=== PATIENT | female | born 1975 | race Caucasian/White ===

== ENCOUNTER 2023-04-13 16:40 | Outpatient (OUT) | payer OTHER, SELFPAY ==
[2023-04-13 16:56] LABS: Basophils Absolute Auto 0.1 10^3/uL (0.0-0.1); Basophils Percent Auto 0.4 % (0.2-2.0); Eosinophils Absolute Auto 0.4 10^3/uL (0.0-0.7); Eosinophils Percent Auto 3.7 % (0.9-7.0); Hematocrit 30.9 % (36.0-48.0); Hemoglobin 10.1 g/dL (12.0-16.0); Immature Granulocytes Abs Auto 0.07 10^3/uL (0.00-0.03); Immature Granulocytes Pct Auto 0.6 % (0.0-0.5); Lymphocytes Absolute Auto 2.7 10^3/uL (1.2-3.8); Lymphocytes Percent Auto 22.9 % (20.5-60.0); Mean Corpuscular HGB Conc 32.7 g/dL (29.9-35.2); Mean Corpuscular Hemoglobin 28.9 pg (26.7-34.0); Mean Corpuscular Volume 88.5 fL (81.0-99.0); Mean Platelet Volume 9.7 fL (9.5-13.5); Monocytes Absolute Auto 0.6 10^3/uL (0.3-0.8); Monocytes Percent Auto 4.9 % (1.7-12.0); Neutrophils Absolute Auto 8.1 10^3/uL (1.4-6.5); Neutrophils Percent Auto 67.5 % (43.0-75.0); Platelet Count 319 10^3/uL (150-450); Red Blood Count 3.49 10^6/uL (4.20-5.40); Red Cell Distribution Width 14.2 % (11.0-15.0)
[2023-04-13 17:09] LABS: Partial Thromboplastin Time 29.1 sec (22.3-36.2); Prothrombin Time 10.6 sec (9.0-11.6)
== END 2023-04-13 16:41 | disposition home or self-care (01) ==
LOC: LAB 16:43
PROVIDERS: PCP Family Medicine; Visit Provider Family Medicine
DX: N92.0 Excessive and frequent menstruation with regular cycle (principal)
CPT/HCPCS: 36415; 85025; 85610; 85730

== ENCOUNTER 2023-04-27 09:39 | Emergency (ER) | payer OTHER, SELFPAY ==
[2023-04-27 09:46] VITALS: BP 150/96; PULSE 77; RESP 22; TEMP 36.5; O2SAT 98; BMI 56.7
--- NOTE | 2023-04-27 10:08 | ED_ITS ---
HPI - Female Genitourinary General Chief complaint: Vaginal Bleeding Time Seen by Provider: 04/27/23 10:07 Source: patient and family Mode of arrival: walk-in History of Present Illness HPI Narrative: patient here for evaluation of heavy vaginal bleeding. Recently her primary care doctor placed her on a five day course of hormonal therapy for menstrual bleeding. She said her bleeding slowed down and stopped her low back but this morning it started getting very heavy. She's used approximately seven pads in the last three hours. 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 There is no strong family history of malignancy. She does not have any other bleeding disorders. She is not on iron or vitamin supplementation foor any anemia and she's never received any blood transfusions. She feels a little shaky this morning. She was having some abdominal cramping but she took it and said it feels a little bit better. She's not having any shortness of breath or chest pain. 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 Vital signs are noted. She's not tachycardic or hypotensive. Her skin is warm and dry. There is no diaphoresis or clamminess. Mucous members are moist and pink. There is no pallor when examining her conjunctival area. Palmar creases are normal. She has no labored drawstring after her tachycardia. Her extremities show no swelling. Constitutional Vital Signs, click to edit/add: Last Vital Signs Temp 97.7 F 04/27/23 09:46 Pulse 77 04/27/23 09:46 Resp 22 04/27/23 09:46 BP 129/75 04/27/23 10:34 Pulse Ox 98 04/27/23 09:46 O2 Del Method Room Air 04/27/23 09:46 Course Vital Signs Vital signs: Vital Signs Temperature 97.7 F 04/27/23 09:46 Pulse Rate 77 04/27/23 09:46 Respiratory Rate 22 04/27/23 09:46 Blood Pressure 150/96 H 04/27/23 09:46 Pulse Oximetry 98 04/27/23 09:46 Oxygen Delivery Method Room Air 04/27/23 09:46 Temperature 97.7 F 04/27/23 09:46 Pulse Rate 77 04/27/23 09:46 Respiratory Rate 22 04/27/23 09:46 Blood Pressure 129/75 04/27/23 10:34 Pulse Oximetry 98 04/27/23 09:46 Oxygen Delivery Method Room Air 04/27/23 09:46 MDM - Female Genitourinary MDM Narrative Medical decision making narrative: patient's CBC is stable from previous laboratory testing at this facility. A pelvic ultrasound was done and the results were discussed with her and discussed with Dr. Hoover, the OB condenser winder. He suggested she rather suggested follow-up with Dr. Edu chris. She will probably need hysteroscopy for evaluation of the uterine lining. This was all discussed in detail with the patient. He is hemodynamically stable Lab Data Labs: Lab Results 04/27/23 Range/Units 10:16 WBC 8.6 (4.0-11.0) 10^3/uL RBC 3.67 L (4.20-5.40) 10^6/uL Hgb 10.1 L (12.0-16.0) g/dL Hct 32.3 L (36.0-48.0) % MCV 88.0 (81.0-99.0) fL MCH 27.5 (26.7-34.0) pg MCHC 31.3 (29.9-35.2) g/dL RDW 14.1 (11.0-15.0) % Plt Count 384 (150-450) 10^3/uL MPV 9.5 (9.5-13.5) fL Neut % (Auto) 70.3 (43.0-75.0) % Lymph % (Auto) 20.7 (20.5-60.0) % [place] % (Auto) 5.1 (1.7-12.0) % Eos % (Auto) 3.2 (0.9-7.0) % Baso % (Auto) 0.2 (0.2-2.0) % Neut # (Auto) 6.1 (1.4-6.5) 10^3/uL Lymph # (Auto) 1.8 (1.2-3.8) 10^3/uL [place] # (Auto) 0.4 (0.3-0.8) 10^3/uL Eos # (Auto) 0.3 (0.0-0.7) 10^3/uL Baso # (Auto) 0.0 (0.0-0.1) 10^3/uL Abs Immat Gran (auto) 0.04 H (0.00-0.03) 10^3/uL Imm/Tot Granulo (auto) 0.5 (0.0-0.5) % PT 10.3 (9.0-11.6) sec INR 0.97 Sodium 137 (136-145) mmol/L Potassium 3.7 (3.5-5.1) mmol/L Chloride 102 (98-107) mmol/L Carbon Dioxide 26.9 (21.0-32.0) mmol/L Anion Gap 11.8 BUN 10.0 (7.0-18.0) mg/dL Creatinine 0.80 (0.55-1.02) mg/dL Est GFR ( Amer) >60 (>=60) Est GFR (Non-Af Amer) >60 (>=60) BUN/Creatinine Ratio 12.5 Glucose 107 H (74-106) mg/dL Calcium 8.5 (8.5-10.1) mg/dL Discharge Plan Discharge Chief Complaint: Vaginal Bleeding Clinical Impression: Menometrorrhagia, Vaginal bleeding Time of Disposition Decision: 11:44 Prescriptions / Home Meds: No Action levothyroxine 50 mcg tablet 50 mcg PO DAILY liothyronine 5 mcg tablet 10 mcg PO DAILY Instructions: Abnormal (Dysfunctional) Uterine Bleeding (ED) Additional Instructions: call Dr. Sorensen's office for follow-up. Strict rest for the next twenty-four hours Stand Alone Forms: Portal Instructions Referrals: Dave Cochran MD [Primary Care Provider] - 1 week
--- NOTE | 2023-04-27 10:13 | US_ITS ---
[address] [address] Patient Name: SARA GIVENS MRN: [id number] date: 1975 Sex: F Assigned Patient Location: ER Current Patient Location: ER Accession/Order Number: [id number] Exam Date: 04/27/2023 10:15 Report Date: 04/27/2023 11:13 At the request of: KIEL GUTIERREZ Procedure: US pelvis transvaginal PROCEDURE: US pelvis transvaginal, 04/27/2023 10:15 AM EDT CLINICAL INDICATIONS: Vaginal bleeding for 2 weeks, prior section 2 para 1 AB 1 COMPARISON: 06/07/2017 TECHNIQUE: Transvaginal pelvic sonogram, grayscale color and spectral assessment FINDINGS: Uterus: 4.8 x 3.0 x 3.4 cm. Uterus is retroverted. Nabothian paracervical cysts are present largest complex 0.7 cm. 2.1 x 2.2 x 2.2 cm complex abnormality identified in the central portion of the fundic portion of the endometrium. There is peripheral vascularity. Endometrium is poorly demonstrated. Right ovary: 1.4 x 1.5 x 1.4 cm, volume 2 mL. Subcentimeter follicle seen, normal sonographic morphology. Left ovary: 3.2 x 4.5 x 3.9 cm, volume 29 mL. 2.7 x 3.3 x 2.7 cm anechoic left ovarian cyst identified. Benign cyst favored. DUPLEX PELVIC VASCULATURE: There is intact flow within the ovarian tissue bilaterally by color-flow assessment. Arterial spectral tracing is identified from within. Right resistive index 0.46, left 0.57. US/US pelvis transvaginal IMPRESSION: 1. Retroverted uterus with nabothian paracervical cyst 2. Complex heterogeneous mass in the fundic portion of the uterus obscuring the endometrium with internal vascularity. Etiology of this process remains indeterminate. Submucosal/intramural leiomyomatous changes are favored although indeterminate on this study alone. This is not evident previously, incompletely characterized on this exam. 3. Normal right ovarian sonographic morphology 4. Anechoic 3.3 cm left ovarian cyst. Benign functional cyst is favored 5. No sonographic sign of adnexal torsion Electronically authenticated by: FELA SMITH Date: 04/27/2023 11:13
[2023-04-27 10:24] LABS: Basophils Percent Auto 0.2 % (0.2-2.0); Eosinophils Absolute Auto 0.3 10^3/uL (0.0-0.7); Eosinophils Percent Auto 3.2 % (0.9-7.0); Hematocrit 32.3 % (36.0-48.0); Hemoglobin 10.1 g/dL (12.0-16.0); Immature Granulocytes Abs Auto 0.04 10^3/uL (0.00-0.03); Immature Granulocytes Pct Auto 0.5 % (0.0-0.5); Lymphocytes Absolute Auto 1.8 10^3/uL (1.2-3.8); Lymphocytes Percent Auto 20.7 % (20.5-60.0); Mean Corpuscular HGB Conc 31.3 g/dL (29.9-35.2); Mean Corpuscular Hemoglobin 27.5 pg (26.7-34.0); Mean Platelet Volume 9.5 fL (9.5-13.5); Monocytes Absolute Auto 0.4 10^3/uL (0.3-0.8); Monocytes Percent Auto 5.1 % (1.7-12.0); Neutrophils Absolute Auto 6.1 10^3/uL (1.4-6.5); Neutrophils Percent Auto 70.3 % (43.0-75.0); Platelet Count 384 10^3/uL (150-450); Red Blood Count 3.67 10^6/uL (4.20-5.40); Red Cell Distribution Width 14.1 % (11.0-15.0); White Blood Count 8.6 10^3/uL (4.0-11.0)
[2023-04-27 10:34] VITALS: BP 129/75
[2023-04-27 10:35] LABS: Anion Gap 11.8; BUN Creatinine Ratio 12.5; Calcium 8.5 mg/dL (8.5-10.1); Carbon Dioxide 26.9 mmol/L (21.0-32.0); Chloride 102 mmol/L (98-107); Estimated GFR (African America >60 (>=60); Estimated GFR (Non-African Ame >60 (>=60); Glucose 107 mg/dL (74-106); Potassium 3.7 mmol/L (3.5-5.1); Sodium 137 mmol/L (136-145)
[2023-04-27 10:37] LABS: INR 0.97; Prothrombin Time 10.3 sec (9.0-11.6)
[2023-04-27] MEDS: 0.9 % SODIUM CHLORIDE 1,000 ML 999 ML IV (10:53)
== END 2023-04-27 12:10 | disposition home or self-care (01) ==
PROVIDERS: Emergency Provider Emergency Medicine Emergency Medical Services; PCP Family Medicine
DX: N92.1 Excessive and frequent menstruation with irregular cycle (principal); N93.9 Abnormal uterine and vaginal bleeding, unspecified; Z79.890 Hormone replacement therapy
CPT/HCPCS: 36415; 76830; 80048; 85025; 85610; 99284

== ENCOUNTER 2023-06-22 13:32 | Outpatient (OUT) | payer OTHER, SELFPAY ==
--- NOTE | 2023-06-22 13:46 | ECG_ITS ---
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
== END 2023-06-22 13:33 | disposition home or self-care (01) ==
LOC: PST 13:33
PROVIDERS: PCP Family Medicine; Visit Provider Obstetrics & Gynecology
DX: Z01.810 Encounter for preprocedural cardiovascular examination (principal); N93.9 Abnormal uterine and vaginal bleeding, unspecified
CPT/HCPCS: 93005

== ENCOUNTER 2023-07-06 07:55 | Day surgery (SDC) | payer OTHER, SELFPAY ==
[2023-06-22 13:53] VITALS: BP 121/76; PULSE 92; RESP 20; TEMP 36.3; O2SAT 97; BMI 54.9
[2023-07-06] VITALS (17 sets, daily range): BP systolic 104–155; BP diastolic 66–91; PULSE 57–86; RESP 11–20; TEMP 35.9–36.6; O2SAT 95–100; BMI 54.9
[2023-07-06 08:05] LABS: Hematocrit 29.6 % (36.0-48.0); Hemoglobin 8.5 g/dL (12.0-16.0); Mean Corpuscular HGB Conc 28.7 g/dL (29.9-35.2); Mean Corpuscular Hemoglobin 21.7 pg (26.7-34.0); Mean Corpuscular Volume 75.5 fL (81.0-99.0); Mean Platelet Volume 9.5 fL (9.5-13.5); Platelet Count 375 10^3/uL (150-450); Red Blood Count 3.92 10^6/uL (4.20-5.40); White Blood Count 8.2 10^3/uL (4.0-11.0)
[2023-07-06 08:08] LABS: Red Cell Distribution Width 14.1 % (11.0-15.0)
[2023-07-06 08:21] LABS: Anisocytosis 1+; Eosinophils Absolute Manual 0.57 10^3/uL (0.00-0.70); Hypochromasia 2+; Lymphocytes Absolute Manual 1.31 10^3/uL (1.20-3.80); Microcytosis 2+; Monocytes Absolute Manual 0.32 10^3/uL (0.30-0.80); Segmented Neut Absolute Manual 5.98 10^3/uL (1.4-6.5)
[2023-07-06] MEDS: FAMOTIDINE/PF 20 MG/2 ML VIAL IV (08:28)
[2023-07-06] MEDS: LACTATED RINGER'S SOLUTION 1,000 ML 50 ML IV (08:28)
[2023-07-06] MEDS: SCOPOLAMINE 1 MG/3 DAYS TRANSDERM PATCH 1 PATCH TD (08:28)
[2023-07-06 08:38] LABS: HCG Quantitative <1 mIU/mL
--- NOTE | 2023-07-06 09:50 | PM.ONB ---
Brief Operative Note Date of procedure: 07/06/23 Pre-op diagnosis: thickend endometrial lining, anemia Post-op diagnosis: same as pre-op Procedure: NAME OF PROCEDURE: [ D&c hysteroscopy with myosure with polypectomy] PROCEDURE: The patient was taken back to the Operating Room where she was prepped and draped in normal sterile fashion after being placed under general anesthesia without difficulty. She was also placed in the dorsal lithotomy position. A weighted speculum was placed in the patient?s vagina. The anterior lip of the cervix was identified and grasped with a single tooth tenaculum. The patient?s uterus was then sounded roughly to [? 10] cm. The patient was then gently dilated using Hegar dilators. The hysteroscope was passed through the patient?s cervix into the uterus. Both ostia were identified. fluffy appearing endometrium. No gross evidence of malignancy, no gross evidence of polyps or fibroids. The MyoSure was then placed through the scope into the uterus, endometrial sampling in all quadrants was then performed. endometrial polyp was also removed using the myosure The myosure apparatus was removed along with the hysteroscope from the patient's uterus. At that point, gentle curettage was performed until a gritty texture was noted. The endometrial curettings were sent out to pathology. The single tooth tenaculum was then removed from the patient's anterior lip of the cervix where excellent hemostasis was noted. All instruments were removed from the patient?s vagina. The patient tolerated the procedure well. Sponge, lap and needle counts were correct times two. The patient was taken to the Recovery Room in stable condition.Room in stable condition. Anesthesia: GETA Surgeon: Tristin Sorensen Estimated blood loss (mL): 5 Pathology: other (endometrial curretting, endometrial polyp) Condition: stable Disposition: PACU
[2023-07-06] MEDS: LACTATED RINGER'S SOLUTION 1,000 ML 150 ML IV (10:15)
[2023-07-06] MEDS: ACETAMINOPHEN 325 MG TABLET 650 MG PO (10:48)
--- NOTE | 2023-07-06 11:11 | PC.NURSE ---
pATIENT USED RESTROOM BUT DID NOT PEEE HAD BLOODY TOILET TISSUE. DENIES PAIN
== END 2023-07-06 12:05 | disposition home or self-care (01) ==
PROVIDERS: PCP Family Medicine; Visit Provider Obstetrics & Gynecology
PROC: (CPT 58558; principal; 2023-07-06 09:15)
DX: N93.9 Abnormal uterine and vaginal bleeding, unspecified (principal); E03.9 Hypothyroidism, unspecified; M19.90 Unspecified osteoarthritis, unspecified site; Z87.891 Personal history of nicotine dependence; R93.89 Abnormal findings on diagnostic imaging of other specified body structures; D64.9 Anemia, unspecified; E66.01 Morbid (severe) obesity due to excess calories; Z68.43 Body mass index [BMI] 50.0-59.9, adult
CPT/HCPCS: 58558; 36415; 84702; 85027; 88305; J2704

== ENCOUNTER 2023-07-14 09:41 | Outpatient (OUT) | payer OTHER, SELFPAY ==
[2023-07-14 10:02] LABS: Basophils Absolute Auto 0.1 10^3/uL (0.0-0.1); Basophils Percent Auto 0.6 % (0.2-2.0); Eosinophils Absolute Auto 0.5 10^3/uL (0.0-0.7); Eosinophils Percent Auto 4.6 % (0.9-7.0); Hematocrit 29.1 % (36.0-48.0); Hemoglobin 8.3 g/dL (12.0-16.0); Immature Granulocytes Abs Auto 0.04 10^3/uL (0.00-0.03); Immature Granulocytes Pct Auto 0.4 % (0.0-0.5); Lymphocytes Absolute Auto 2.1 10^3/uL (1.2-3.8); Lymphocytes Percent Auto 21.4 % (20.5-60.0); Mean Corpuscular HGB Conc 28.5 g/dL (29.9-35.2); Mean Corpuscular Hemoglobin 21.7 pg (26.7-34.0); Mean Corpuscular Volume 76.2 fL (81.0-99.0); Mean Platelet Volume 9.9 fL (9.5-13.5); Monocytes Absolute Auto 0.7 10^3/uL (0.3-0.8); Monocytes Percent Auto 7.3 % (1.7-12.0); Neutrophils Absolute Auto 6.5 10^3/uL (1.4-6.5); Neutrophils Percent Auto 65.7 % (43.0-75.0); Platelet Count 404 10^3/uL (150-450); Red Blood Count 3.82 10^6/uL (4.20-5.40); Red Cell Distribution Width 16.1 % (11.0-15.0)
== END 2023-07-14 09:42 | disposition home or self-care (01) ==
LOC: LAB 09:44
PROVIDERS: PCP Family Medicine; Visit Provider Obstetrics & Gynecology
DX: R79.89 Other specified abnormal findings of blood chemistry (principal)
CPT/HCPCS: 36415; 85025

== ENCOUNTER 2023-08-21 21:32 | Emergency (ER) | payer OTHER, SELFPAY ==
[2023-08-21 21:43] VITALS: BP 121/61; PULSE 90; RESP 18; TEMP 36.7; O2SAT 99; BMI 56.7
--- NOTE | 2023-08-21 22:11 | ED_ITS ---
HPI - Fall General Chief Complaint: Fall Stated Complaint: Fall Time Seen by Provider: 08/21/23 21:48 Source: patient Mode of arrival: Wheelchair Limitations: no limitations History of Present Illness HPI Narrative: patient describes walking out of a restaurant and falling. States the ground was not level due to a crack in the cement. She loss her balance and fell striking her left shoulder against a pillar and then landing on her right knee. complains of feeling sore all over but most of her pain is the right knee. No weakness of the extremities. MD complaint: Reports fall Related Data Home Medications Medication Instructions Recorded Confirmed levothyroxine 50 mcg tablet 50 mcg PO DAILY 04/27/23 08/21/23 liothyronine 5 mcg tablet 10 mcg PO DAILY 04/27/23 08/21/23 carisoprodol 350 mg tablet (Soma) 350 mg PO BID PRN muscle pain 06/22/23 06/22/23 meclizine 25 mg tablet 25 mg PO TID PRN dizziness 06/22/23 06/22/23 Allergies Allergy/AdvReac Type Severity Reaction Status Date / Time No Known Drug Allergies Allergy Verified 08/21/23 21:45 Review of Systems ROS Status of ROS 10 or more systems reviewed and unremark able except as noted in history and below [facility] Medical History (Updated 08/22/23 @ 00:13 by Emerson Schrader MD) Vertigo ?R42 - Dizziness and giddiness (ICD-10) Back pain ?M54.9 - Dorsalgia, unspecified (ICD-10) Anemia ?D64.9 - Anemia, unspecified (ICD-10) Panic attacks ?F41.0 - Panic disorder [episodic paroxysmal anxiety] (ICD-10) Anxiety ?F41.9 - Anxiety disorder, unspecified (ICD-10) COVID-19 ?U07.1 - COVID-19 (ICD-10) Hypothyroid ?E03.9 - Hypothyroidism, unspecified (ICD-10) Cellulitis ?L03.90 - Cellulitis, unspecified (ICD-10) Arthritis ?M19.90 - Unspecified osteoarthritis, unspecified site (ICD-10) Abnormal uterine bleeding (AUB) ?N93.9 - Abnormal uterine and vaginal bleeding, unspecified (ICD-10) Surgical History (Updated 06/22/23 @ 13:52 by Yesi Knox NP) History of section ?Z98.891 - History of uterine scar from previous surgery (ICD-10) History of section ?Z98.891 - History of uterine scar from previous surgery (ICD-10) History of dilation and curettage ?Z98.890 - Other specified postprocedural states (ICD-10) Family History (Updated 06/22/23 @ 13:42 by Yesi Knox NP) Other Family history of diabetes mellitus Family history of hypertension Family history of stroke Heart disease Social History (Updated 06/22/23 @ 13:48 by Yesi Knox NP) Within the past year, how often did you have a drink containing alcohol: monthly or less Smoking status: Former smoker Non-prescribed substance use: denies use 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 Highest level of school completed/degree received: high school graduate Exam Constitutional Vital Signs, click to edit/add: Last Vital Signs Temp 98.1 F 08/21/23 21:43 Pulse 90 08/21/23 21:43 Resp 18 08/21/23 21:43 BP 121/61 08/21/23 21:43 Pulse Ox 99 08/21/23 21:43 O2 Del Method Room Air 08/21/23 21:43 Common normals: no apparent distress, oriented x3, alert and well nourished Eye Common normals: EOMs intact bilaterally and conjunctivae normal Respiratory Common normals: normal respiratory effort, no retractions and no use of accessory muscles Cardio Common normals: regular rate, regular rhythm, S1 normal heart sound and S2 normal heart sound Back & Pelvis Other: very mild tenderness lower lumbar musculature hips nontender. focal tenderness right patella. no swelling Neuro Common normals: oriented x3, CN's II-XII intact bilaterally, moves all extremities and no focal motor deficits Psych Appearance: grossly normal Course Vital Signs Vital signs: Vital Signs Temperature 98.1 F 08/21/23 21:43 Pulse Rate 90 08/21/23 21:43 Respiratory Rate 18 08/21/23 21:43 Blood Pressure 121/61 08/21/23 21:43 Pulse Oximetry 99 08/21/23 21:43 Oxygen Delivery Method Room Air 08/21/23 21:43 Temperature 98.1 F 08/21/23 21:43 Pulse Rate 90 08/21/23 21:43 Respiratory Rate 18 08/21/23 21:43 Blood Pressure 121/61 08/21/23 21:43 Pulse Oximetry 99 08/21/23 21:43 Oxygen Delivery Method Room Air 08/21/23 21:43 MDM - Fall MDM Narrative Medical decision making narrative: patient loss balance walking out of a Restaurant . Describes a crack in the ground and uneven pavement. Fell striking her left shoulder and then onto her right knee. Achy all over but her main are of pain if her right knee. Difficult to walk because of the pain. has focal tenderness over the patella. No effusion. focal area discoloration at impact site. Xray of knee neg. Patient and informed of the xray results and working diagnosis. Given an injection of Toradol and discharged home to follow up with her doctor Discharge Plan Discharge Chief Complaint: Fall Clinical Impression: Contusion of knee, right Patient Disposition: Home, Self-Care Prescriptions / Home Meds: No Action carisoprodol [Soma] 350 mg tablet 350 mg PO BID PRN (Reason: muscle pain) meclizine 25 mg tablet 25 mg PO TID PRN (Reason: dizziness) levothyroxine 50 mcg tablet 50 mcg PO DAILY liothyronine 5 mcg tablet 10 mcg PO DAILY Instructions: Contusion in Adults (ED) Additional Instructions: follow up with Dr Cochran in the next 1-2 days Stand Alone Forms: Portal Instructions Referrals: Dave Cochran MD [Primary Care Provider] - 1 week Discharge Date/Time: 08/22/23 00:52
--- NOTE | 2023-08-21 22:18 | XR_ITS ---
The [address] [address] Patient Name: SARA GIVENS MRN: [id number] date: 1975 Sex: F Assigned Patient Location: ER Current Patient Location: ER Accession/Order Number: [id number] Exam Date: 08/21/2023 23:28 Report Date: 08/21/2023 23:40 At the request of: PANFILO SAL Procedure: XR knee RT 3V EXAM: XR knee RT 3V HISTORY: The patient is a 47-year-old female, injury COMPARISON: 10/02/2022. FINDINGS: The right knee is radiographically negative with no evidence of fracture, dislocation, significant joint space narrowing, sizable osteophytes, or other osseous or articular abnormalities. XR/XR knee RT 3V IMPRESSION: Negative. Electronically authenticated by: SAMSON SENA Date: 08/21/2023 23:40
[2023-08-21] MEDS: KETOROLAC TROMETHAMINE 60 MG/2 ML VIAL IM (23:31)
[2023-08-22] MEDS: HYDROCODONE/ACET 5-325 MG TABLET 2 TAB PO (00:34)
== END 2023-08-22 00:52 | disposition home or self-care (01) ==
PROVIDERS: Emergency Provider Internal Medicine; PCP Family Medicine
DX: S80.01XA Contusion of right knee, initial encounter (principal); W19.XXXA Unspecified fall, initial encounter; Z79.899 Other long term (current) drug therapy; Z79.890 Hormone replacement therapy; F41.9 Anxiety disorder, unspecified; E03.9 Hypothyroidism, unspecified; M19.90 Unspecified osteoarthritis, unspecified site; Z86.16 Personal history of COVID-19; Z98.891 History of uterine scar from previous surgery; Z98.890 Other specified postprocedural states; Z87.891 Personal history of nicotine dependence
CPT/HCPCS: 73562; 96372; 99284

== ENCOUNTER 2024-05-10 12:27 | Outpatient (OUT) | payer OTHER, SELFPAY ==
--- OUTSIDE RECORDS SUMMARY | 2024-05-10 12:31 | XMS_ITS | CCD ---
Author Organization 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 Name Role Phone NON, STAFF Primary Care Physician Say Hancock Attending Physician Unavailable REQUEST, DR GRIMALDO LISTED Admitting Unavaila ble HOY ., DR LAURENT Primary Care Unavailable REQUEST, DR GRIMALDO LISTED Attending Unavaila ble REQUEST, DR GRIMALDO LISTED Consulting Unavaila ble HOY ., DR LAURENT Primary Care Unavailable HOY ., DR LAURENT Admitting Unavailable HOY ., DR LAURENT Attending Unavailable HOY ., DR LAURENT Primary Care Unavailable HOY ., DR LAURENT Admitting Unavailable HOY ., DR LAURENT Attending Unavailable HOY ., DR LAURENT Consulting Unavailable HOY ., DR ALURENT Consulting Unavailable HOY ., DR LAURENT Primary Care Unavailable HOY ., DR LAURENT Admitting Unavailable HOY ., DR LAURENT Attending Unavailable ANU RICHMOND Consulting Unavailable HOY ., DR LAURENT Consulting Unavailable HOY ., DR LAURENT Primary Care Unavailable HOY ., DR LAURENT Admitting Unavailable HOY ., DR LAURENT Attending Unavailable KLANU WAGONER Consulting Unavailable NEFCYLUIS ANTONIO Consulting Unavailable Problems Active Problems Problem Classification Problem Date Documented Da te Episodic/Chronic Joint disorders and dislocations; trauma-related (4 sources) Unspecified internal derangement of right knee; Translations: [UNS INTERNAL DERANGEMENT RIGHT KNEE] Onset: 10-02-2022 Chronic Skin and subcutaneous tissue infections (4 sources) Cellulitis of right lower limb; Translations: [CELLULITIS OF RIGHT LOWER LIMB] Onset: 10-30-2022 Episodic Past or Other Problems Problem Classification Problem Date Documented Da te Episodic/Chronic Other connective tissue disease (1 source) Plantar fascial fibromatosis; Translations: [PLANTAR FASCIAL FIBROMATOSIS] Onset: 2022 Episodic Results Test Name Value Interpretation Reference Range Facility CBC AUTO DIFFon 01-12-2023 BASO # 0.0 103/ul Normal 0.0-0.1 [facility] Comment on above: Performed By: #### C BC #### [facility] [address] [place] [address] Dr. Teja Macias Basophils/100 WBC (Bld) 0.4 % Normal 0.2-2.0 [facility] Comment on above: Performed By: #### C BC #### [facility] [address] [place] [address] Dr. Teja Macias EO # 0.5 103/ul Normal 0.0-0.7 [facility] Comment on above: Performed By: #### C BC #### [facility] [address] [place] [address] Dr. Teja Macias Eosinophils/100 WBC (Bld) 5.6 % Normal 0.9-7.0 [facility] Comment on above: Performed By: #### C BC #### [facility] [address] [place] [address] Dr. Teja Macias Erythrocyte distribution width (RBC) [Ratio] 14.0 % Normal 11.0-15.0 [facility] Comment on above: Performed By: #### C BC #### [facility] [address] [place] [address] Dr. Teja Macias Hematocrit (Bld) [Volume fraction] 41.2 % Normal 36.0-48.0 [facility] Comment on above: Performed By: #### C BC #### [facility] [address] [place] [address] Dr. Teja Macias Hemoglobin (Bld) [Mass/Vol] 13.1 g/dL Normal 12.0-16.0 [facility] Comment on above: Performed By: #### C BC #### [facility] [address] [place] [address] Dr. Teja Macias IG # 0.04 10e3/ul Critically high 0.00-0.03 [facility] Comment on above: Performed By: #### C BC #### [facility] [address] [place] [address] Dr. Teja Macias IG % 0.5 % Normal 0.0-0.5 [facility] Comment on above: Performed By: #### C BC #### [facility] [address] [place] [address] Dr. Teja Macias LYMPH # 2.5 103/ul Normal 1.2-3.8 [facility] Comment on above: Performed By: #### C BC #### [facility] [address] [place] [address] Dr. Teja Macias Lymphocytes/100 WBC (Bld) 28.8 % Normal 20.5-60.0 [facility] Comment on above: Performed By: #### C BC #### [facility] [address] [place] [address] Dr. Teja Macias MANUAL DIFF REQ NO Normal [facility] Comment on above: Performed By: #### C BC #### [facility] [address] [place] [address] Dr. Teja Macias MCH (RBC) [Entitic mass] 28.1 pg Normal 26.7-34.0 [facility] Comment on above: Performed By: #### C BC #### [facility] [address] [place] [address] Dr. Teja Macias MCHC (RBC) [Mass/Vol] 31.8 g/dL Normal 29.9-35.2 [facility] Comment on above: Performed By: #### C BC #### [facility] [address] [place] [address] Dr. Teja Macias MCV (RBC) [Entitic vol] 88.4 fL Normal 81.0-99.0 [facility] Comment on above: Performed By: #### C BC #### [facility] [address] [place] [address] Dr. Teja Macias MONO # 0.5 103/ul Normal 0.3-0.8 [facility] Comment on above: Performed By: #### C BC #### [facility] [address] [place] [address] Dr. Teja Macias Monocytes/100 WBC (Bld) 6.1 % Normal 1.7-12.0 [facility] Comment on above: Performed By: #### C BC #### [facility] [address] [address] [address] Teja Macias NEUT # 5.0 103/ul Normal 1.4-6.5 [facility] Comment on above: Performed By: #### C BC #### [facility] [address] [address] [address] Teja Macias Neutrophils/100 WBC (Bld) 58.6 % Normal 43.0-75.0 [facility] Comment on above: Performed By: #### C BC #### [facility] [address] [address] [address] Teja Macias Platelet mean volume (Bld) [Entitic vol] 10.2 fL Normal 9.5-13.5 [facility] Comment on above: Performed By: #### C BC #### [facility] [address] [address] [address] Teja Macias PLT 299 103/ul Normal 150-450 [facility] Comment on above: Performed By: #### C BC #### [facility] [address] [address] [address] Teja Macias RBC 4.66 106/ul Normal 4.20-5.40 [facility] Comment on above: Performed By: #### C BC #### [facility] [address] [address] [address] Teja Macias WBC 8.5 103/ul Normal 4.0-11.0 [facility] Comment on above: Performed By: #### C BC #### [facility] [address] [address] [address] Teja Macias LIPID PROFILEon 01-12-2023 CHOL-HDL RATIO NORM SEE BELOW Normal [facility] Comment on above: Result Comment: 3.3 - 4.4 LOW RISK 4.4 - 7.1 AVERAGE RISK 7.1 - 11.0 MODERATE RISK >11.0 HIGH RISK Performed By: #### T 4, CMP, TSH, LIPID ####[facility] [address] [address]Dr. Teja Macias Cholesterol [Mass/Vol] 171 mg/dL Normal <=200 [facility] Comment on above: Performed By: #### T 4, CMP, TSH, LIPID ####[facility] [address] [id number]. Teja Macias Cholesterol in HDL [Mass/Vol] 42 mg/dL Normal 40-60 [facility] Comment on above: Performed By: #### T 4, CMP, TSH, LIPID ####[facility] [address] [id number]. Teja Macias Cholesterol in LDL [Mass/Vol] 106.8 mg/dL Normal [facility] Comment on above: Performed By: #### T 4, CMP, TSH, LIPID ####[facility] [address] [id number]. Teja Macias Cholesterol.total/Cho lesterol in HDL [Mass ratio] 4.1 {ratio} Normal [facility] Comment on above: Performed By: #### T 4, CMP, TSH, LIPID ####[facility] [address] [place], [place] [address]Mf. Teja Macias HDL NORMAL > or = 60 mg/dl - LOW CARDIOVASCULAR RISK <40 mg/dl - HIGH CARDIOVASCULAR RISK Normal [facility] Comment on above: Performed By: #### T 4, CMP, TSH, LIPID ####[facility] [address] [id number]. Lindalynn Macias LDL CALC NORMAL SEE BELOW Normal [facility] Comment on above: Result Comment: <100 mg/dl OPTIMAL 100 - 129 mg/dl NEAR OR ABOVE OPTIMAL 130 - 159 mg/dl BORDERLINE HIGH 160 - 189 mg/dl HIGH >190 mg/dl VERY HIGH Performed By: #### T 4, CMP, TSH, LIPID ####[facility] [address] [id number]. Lindalynn Macias Triglyceride [Mass/Vol] 111 mg/dL Normal <=150 [facility] Comment on above: Performed By: #### T 4, CMP, TSH, LIPID ####[facility] [address] [phone]. Teja Macias VLDL CALC 22.2 mg/dL Normal [facility] Comment on above: Performed By: #### T 4, CMP, TSH, LIPID ####[facility] [address] [address]Dr. Teja Macias PROF 14(COMP METB)on 023 Albumin [Mass/Vol] 3.3 g/dL Critically low 3.4-5.0 [facility] Comment on above: Performed By: #### T 4, CMP, TSH, LIPID ####[facility] [address] [address]Dr. Teja Macias Albumin/Globulin [Mass ratio] 0.6 {ratio} Normal [facility] Comment on above: Performed By: #### T 4, CMP, TSH, LIPID ####[facility] [address] [address]Dr. Teja Macias ALP [Catalytic activity/Vol] 79 U/L Normal 46-116 [facility] Comment on above: Performed By: #### T 4, CMP, TSH, LIPID ####[facility] [address] [address]Dr. Teja Macias ALT [Catalytic activity/Vol] 29 U/L Normal 14-59 [facility] Comment on above: Performed By: #### T 4, CMP, TSH, LIPID ####[facility] [address] [phone]. Teja Macias Anion gap [Moles/Vol] 10.2 mmol/L Normal [facility] Comment on above: Performed By: #### T 4, CMP, TSH, LIPID ####[facility] [address] [address]Dr. Teja Macias AST [Catalytic activity/Vol] 23 U/L Normal 15-37 [facility] Comment on above: Performed By: #### T 4, CMP, TSH, LIPID ####[facility] [address] [address]Dr. Teja Macias Bilirubin [Mass/Vol] 0.4 mg/dL Normal 0.2-1.0 [facility] Comment on above: Performed By: #### T 4, CMP, TSH, LIPID ####[facility] [address] [address]Dr. Teja Macias Calcium [Mass/Vol] 8.9 mg/dL Normal 8.5-10.1 [facility] Comment on above: Performed By: #### T 4, CMP, TSH, LIPID ####[facility] [address] [address]Dr. Teja Macias Chloride [Moles/Vol] 104 mmol/L Normal 98-107 [facility] Comment on above: Performed By: #### T 4, CMP, TSH, LIPID ####[facility] [address] [address]Dr. Teja Macias CO2 [Moles/Vol] 28.0 mmol/L Normal 21.0-32.0 [facility] Comment on above: Performed By: #### T 4, CMP, TSH, LIPID ####[facility] [address] [place], [place] [address]Dr. Teja Gilberto Creatinine [Mass/Vol] 0.67 mg/dL Normal 0.55-1.02 [facility] Comment on above: Performed By: #### T 4, CMP, TSH, LIPID ####[facility] [address] [place], [place] [address]Dr. Teja Macias EGFR-AF CENTRAL AFRICAN >60 Normal >=60 [facility] Comment on above: Performed By: #### T 4, CMP, TSH, LIPID ####[facility] [address] [address]Dr. Teja Macias EGFR-NON AF CENTRAL AFRICAN >60 Normal >=60 [facility] Comment on above: Performed By: #### T 4, CMP, TSH, LIPID ####[facility] [address] [place], [place] [address]Dr. Teja Macias Globulin (S) [Mass/Vol] 5.2 g/dL Normal [facility] Comment on above: Performed By: #### T 4, CMP, TSH, LIPID ####[facility] [address] [place], [place] [address]Dr. Teja Macias Glucose [Mass/Vol] 97 mg/dL Normal 74-106 [facility] Comment on above: Performed By: #### T 4, CMP, TSH, LIPID ####[facility] [address] [place] [address]Dr. Teja Macias Potassium [Moles/Vol] 4.2 mmol/L Normal 3.5-5.1 [facility] Comment on above: Performed By: #### T 4, CMP, TSH, LIPID ####[facility] [address] [address]Dr. Teja Macias Protein [Mass/Vol] 8.5 g/dL Critically high 6.4-8.2 [facility] Comment on above: Performed By: #### T 4, CMP, TSH, LIPID ####[facility] [address] [address]Dr. Teja Macias Sodium [Moles/Vol] 138 mmol/L Normal 136-145 [facility] Comment on above: Performed By: #### T 4, CMP, TSH, LIPID ####[facility] [address] [address]Dr. Teja Macias Urea nitrogen [Mass/Vol] 12.0 mg/dL Normal 7.0-18.0 [facility] Comment on above: Performed By: #### T 4, CMP, TSH, LIPID ####[facility] [address] [address]Dr. Teja Macias Urea nitrogen/Creatinine [Mass ratio] 17.9 mg/mg Normal [facility] Comment on above: Performed By: #### T 4, CMP, TSH, LIPID ####[facility] [address] [address]Dr. Teja Macias T4on 01-12-2023 T4 [Mass/Vol] 5.00 ug/dL Normal 4.80-13.90 [facility] Comment on above: Performed By: #### T 4, CMP, TSH, LIPID ####[facility] [address] [address]Dr. Teja Macias TSHon 01-12-2023 TSH 2.338 uIU/mL Normal 0.358-3.740 [facility] Comment on above: Performed By: #### T 4, CMP, TSH, LIPID ####[facility] [address] [place], [place] [address]GrChristiano Macias US KIM DOP LEG RTon 10-31-19 23 US KIM DOP LEG RT Ultrasound venous duplex scan right lower extremity CLINICAL: Right lower leg redness and swelling TECHNIQUE: Morales-scale, color-flow, and Spectral Doppler examination of the right lower extremity were performed with and without provocative maneuvers. FINDINGS: Sonographic examination of the right lower extremity deep venous system to include the common femoral, superficial femoral and popliteal veins, demonstrates normal compressibility, color-flow, respiratory variation, and augmentation. The origin and proximal segment of the greater saphenous vein also demonstrates normal compression and color-flow. There is normal color-flow in the peroneal, posterior tibial, and anterior tibial veins. There is edema in the soft tissues of the calf and ankle. IMPRESSION: No deep venous thrombosis of the right lower extremity. Electronically authenticated by: ANU RICHMOND Date: 2022-10-31 08:51 Normal [facility] MRI KNEE RT WO CONon 023 MRI KNEE RT WO CON EXAM: MRI KNEE RT WO CON HISTORY: Right knee pain. COMPARISON: Knee x-rays 10/24/2019 TECHNIQUE: Multiplanar, multi sequential MRI sequences were performed. FINDINGS: Patient is morbidly obese. Small knee effusion. No popliteal cyst, fracture or dislocation. Approximately 13 mm of weight related lateral patella subluxation. Approximately 5.3 mm of weight related lateral translation of the tibia. Small osteophytes off the articular surfaces. Nonspecific edema within the anterior pretibial soft tissues. No soft tissue collection, mass or cyst. No muscle atrophy or fatty infiltration. Full-thickness cartilage loss with adjacent thinning of the lateral patella facet cartilage. Thinning of the patella apex and medial patella facet with partial thickness cartilage irregularities. No gross visualized irregularity of the trochlea cartilage. The articular cartilage of the medial and lateral femorotibial compartments exhibit no chondral or osteochondral defects. The bodies of both menisci are extruded into the respective gutters. Degenerative leading edge tearing of the medial meniscus body and posterior horn. Degenerative leading edge tearing of the lateral meniscus body. The root ligaments of both menisci are unremarkable. The patella tendon, visualized extensor mechanism and Hoffa's fat are unremarkable. The anterior cruciate, posterior cruciate, medial collateral and lateral complex ligaments and tendons exhibit no thickening, tear or edema. IMPRESSION: 1. Full-thickness cartilage loss of the lateral patella facet. 2. 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 3. Scattered weight related changes throughout the knee with leading edge tearing of the medial and lateral menisci. 4. Knee effusion. Electronically authenticated by: ANU PABON Date: 2022-10-02 21:54 Normal [facility] XR ANKLE LT MIN 3 Von 2022 XR ANKLE LT MIN 3 V EXAM: XR ANKLE LT MIN 3 V HISTORY: Plantar fascial pain COMPARISON: None. TECHNIQUE: 3 views of the ankle were obtained. FINDINGS: There is no evidence of an acute fracture or dislocation. The mortise and the joint spaces are intact. There is an osteophyte at the insertion site of the Achilles tendon. There is an osteophyte along the plantar aspect of the calcaneus. Prominent diffuse soft tissue swelling and edema is seen in the lower leg, ankle and foot. IMPRESSION: No acute fracture or dislocation. The joint spaces are intact. Osteophytes arise from the posterior calcaneus. Prominent diffuse soft tissue swelling is present. Electronically authenticated by: LUIS ANTONIO BAEZA Date: 2022-10-02 17:50 Normal [facility] XR KNEE RT 4V or >on 023 XR KNEE RT 4V or > EXAM: XR KNEE RT 4V or > HISTORY: Pain in the knee since L[place]e. COMPARISON: 10/24/2019 TECHNIQUE: 4 views of the left knee were obtained. FINDINGS: There is no evidence of an acute fracture or dislocation. There is mild narrowing of the joint spaces accompanied by small osteophytes throughout the knee. No osteochondral injury is identified. An osteophyte arises from the superior and anterior aspect of the patella. No significant joint effusion is present. IMPRESSION: Mild degenerative changes are seen throughout the knee without evidence of an acute fracture or dislocation. The overall appearance of the knee is essentially unchanged. Electronically authenticated by: LUIS ANTONIO BAEZA Date: 2022-10-02 17:52 Normal [facility] CBC AUTO DIFFon 01-23-2022 BASO # 0.0 103/ul Normal 0.0-0.1 [facility] Comment on above: Performed By: #### C BC ####[facility] [address] [address]Dr. Teja Macias Basophils/100 WBC (Bld) 0.3 % Normal 0.2-2.0 [facility] Comment on above: Performed By: #### C BC ####[facility] [address] [place], [place] [address]Dr. Lindalynn Gilberto EO # 0.5 103/ul Normal 0.0-0.7 [facility] Comment on above: Performed By: #### C BC ####[facility] [address] [place], [place] [address]Dr. Teja Gilberto Eosinophils/100 WBC (Bld) 5.1 % Normal 0.9-7.0 [facility] Comment on above: Performed By: #### C BC ####[facility] [address] [place], [place] [address]Dr. Teja Macias Erythrocyte distribution width (RBC) [Ratio] 14.6 % Normal 11.0-15.0 [facility] Comment on above: Performed By: #### C BC ####[facility] [address] [place], [place] [address]Dr. Teja Macias Hematocrit (Bld) [Volume fraction] 38.7 % Normal 36.0-48.0 [facility] Comment on above: Performed By: #### C BC ####[facility] [address] [place], [place] [address]Dr. Teja Macias Hemoglobin (Bld) [Mass/Vol] 12.2 g/dL Normal 12.0-16.0 [facility] Comment on above: Performed By: #### C BC ####[facility] [address] [place], [place] [address]Dr. Teja Macias IG # 0.02 10e3/ul Normal 0.00-0.03 [facility] Comment on above: Performed By: #### C BC ####[facility] [address] [address]Dr. Teja Macias IG % 0.2 % Normal 0.0-0.5 [facility] Comment on above: Performed By: #### C BC ####[facility] [address] [place] [address]DrChristiano Macias LYMPH # 2.1 103/ul Normal 1.2-3.8 [facility] Comment on above: Performed By: #### C BC ####[facility] [address] [place], [place] [address]DrChristiano Macias Lymphocytes/100 WBC (Bld) 22.4 % Normal 20.5-60.0 [facility] Comment on above: Performed By: #### C BC ####[facility] [address] [place], [place] [address]DrChristiano Macias MANUAL DIFF REQ NO Normal [facility] Comment on above: Performed By: #### C BC ####[facility] [address] [place], [place] [address]DrChristiano Macias MCH (RBC) [Entitic mass] 27.5 pg Normal 26.7-34.0 [facility] Comment on above: Performed By: #### C BC ####[facility] [address] [place], [place] [address]DrChristiano Macias MCHC (RBC) [Mass/Vol] 31.5 g/dL Normal 29.9-35.2 [facility] Comment on above: Performed By: #### C BC ####[facility] [address] [place], [place] [address]DrChristiano Macias MCV (RBC) [Entitic vol] 87.2 fL Normal 81.0-99.0 [facility] Comment on above: Performed By: #### C BC ####[facility] [address] [place], [place] [address]DrChristiano Macias MONO # 0.4 103/ul Normal 0.3-0.8 [facility] Comment on above: Performed By: #### C BC ####[facility] [address] [place], [place] [address]DrChristiano Macias Monocytes/100 WBC (Bld) 4.6 % Normal 1.7-12.0 [facility] Comment on above: Performed By: #### C BC ####[facility] [address] [place] [phone]. Teja Macias NEUT # 6.3 103/ul Normal 1.4-6.5 [facility] Comment on above: Performed By: #### C BC ####[facility] [address] [place] [address]Dr. Teja Macias Neutrophils/100 WBC (Bld) 67.4 % Normal 43.0-75.0 [facility] Comment on above: Performed By: #### C BC ####[facility] [address] [place] [address]Dr. Teja Macias Platelet mean volume (Bld) [Entitic vol] 10.3 fL Normal 9.5-13.5 [facility] Comment on above: Performed By: #### C BC ####[facility] [address] [place] [phone]. Teja Macias PLT 278 103/ul Normal 150-450 [facility] Comment on above: Performed By: #### C BC ####[facility] [address] [place] [id number]. Teja Macias RBC 4.44 106/ul Normal 4.20-5.40 [facility] Comment on above: Performed By: #### C BC ####[facility] [address] [place] [phone]. Teja Macias WBC 9.3 103/ul Normal 4.0-11.0 [facility] Comment on above: Performed By: #### C BC ####[facility] [address] [place] [phone]. Teja Macias FREE T3on 01-23-2022 FREE T3 1.74 pg/mlL Critically low 2.18-3.98 [facility] Comment on above: Performed By: #### T 4, TSH, CMP, LIPID, FT3 #### [facility] [id number] Teja Macias GLYCOHEMOGLOBIN A1Con 2021 ADA RECOMMENDATION SEE BELOW Normal [facility] Comment on above: Result Comment: ADA RECOMMENDED LIMIT 4.0 - 6.0 ADA THERAPEUTIC TARGET < 7.0 ACTION SUGGESTED > 7.0 Performed By: #### A 1C ####[facility] [address] [place] [address]Dr. Teja Macias Glucose [Mass/Vol] 114 mg/dL Normal [facility] Comment on above: Performed By: #### A 1C ####[facility] [address] [place] [address]Dr. Teja Macias HbA1c (Bld) [Mass fraction] 5.6 % Normal 4.5-6.2 [facility] Comment on above: Performed By: #### A 1C ####[facility] [address] [place] [address]Dr. Teja Macias LIPID PROFILEon 01-23-2022 CHOL-HDL RATIO NORM SEE BELOW Normal [facility] [facility] Comment on above: Result Comment: 3.3 - 4.4 LOW RISK 4.4 - 7.1 AVERAGE RISK 7.1 - 11.0 MODERATE RISK >11.0 HIGH RISK Performed By: #### T 4, TSH, CMP, LIPID, FT3 #### [facility] [address] [address] [address] Teja Macias Cholesterol [Mass/Vol] 155 mg/dL Normal <=200 [facility] Comment on above: Performed By: #### T 4, TSH, CMP, LIPID, FT3 #### [facility] [address] [address] [address] Teja Macias Cholesterol in HDL [Mass/Vol] 36 mg/dL Critically low 40-60 [facility] Comment on above: Performed By: #### T 4, TSH, CMP, LIPID, FT3 #### [facility] [address] [address] [address] Teja Macias Cholesterol in LDL [Mass/Vol] 93.6 mg/dL Normal [facility] Comment on above: Performed By: #### T 4, TSH, CMP, LIPID, FT3 #### [facility] [address] [address] [address] Teja Macias Cholesterol.total/Cho lesterol in HDL [Mass ratio] 4.3 {ratio} Normal [facility] Comment on above: Performed By: #### T 4, TSH, CMP, LIPID, FT3 #### [facility] [address] [address] [address] Teja Macias HDL NORMAL > or = 60 mg/dl - LOW CARDIOVASCULAR RISK <40 mg/dl - HIGH CARDIOVASCULAR RISK Normal [facility] Comment on above: Performed By: #### T 4, TSH, CMP, LIPID, FT3 #### [facility] [address] [address] [address] Teja Macias LDL CALC NORMAL SEE BELOW Normal [facility] Comment on above: Result Comment: <100 mg/dl OPTIMAL 100 - 129 mg/dl NEAR OR ABOVE OPTIMAL 130 - 159 mg/dl BORDERLINE HIGH 160 - 189 mg/dl HIGH >190 mg/dl VERY HIGH Performed By: #### T 4, TSH, CMP, LIPID, FT3 #### [facility] [address] [address] [address] Teja Macias Triglyceride [Mass/Vol] 127 mg/dL Normal <=150 [facility] Comment on above: Performed By: #### T 4, TSH, CMP, LIPID, FT3 #### [facility] [address] [address] [address] Teja Macias VLDL CALC 25.4 mg/dL Normal [facility] Comment on above: Performed By: #### T 4, TSH, CMP, LIPID, FT3 #### [facility] [address] [address] [address] Teja Macias PROF 14(COMP METB)on 022 Albumin [Mass/Vol] 3.0 g/dL Critically low 3.4-5.0 [facility] Comment on above: Performed By: #### T 4, TSH, CMP, LIPID, FT3 #### [facility] [address] [address] [address] Teja Macias Albumin/Globulin [Mass ratio] 0.7 {ratio} Normal [facility] Comment on above: Performed By: #### T 4, TSH, CMP, LIPID, FT3 #### [facility] [address] [place] [address] Dr. Teja Macias ALP [Catalytic activity/Vol] 71 U/L Normal 46-116 [facility] Comment on above: Performed By: #### T 4, TSH, CMP, LIPID, FT3 #### [facility] [address] [place] [address] Dr. Teja Macias ALT [Catalytic activity/Vol] 19 U/L Normal 14-59 [facility] Comment on above: Performed By: #### T 4, TSH, CMP, LIPID, FT3 #### [facility] [address] [place] [address] Dr. Teja Macias Anion gap [Moles/Vol] 15.5 mmol/L Normal [facility] Comment on above: Performed By: #### T 4, TSH, CMP, LIPID, FT3 #### [facility] [address] [place] [address] Dr. Teja Macias AST [Catalytic activity/Vol] 16 U/L Normal 15-37 [facility] Comment on above: Performed By: #### T 4, TSH, CMP, LIPID, FT3 #### [facility] [address] [place] [address] Dr. Teja Macias Bilirubin [Mass/Vol] 0.4 mg/dL Normal 0.2-1.0 [facility] Comment on above: Performed By: #### T 4, TSH, CMP, LIPID, FT3 #### [facility] [address] [place] [address] Dr. Teja Macias Calcium [Mass/Vol] 8.7 mg/dL Normal 8.5-10.1 [facility] Comment on above: Performed By: #### T 4, TSH, CMP, LIPID, FT3 #### [facility] [address] [place] [address] Dr. Teja Macias Chloride [Moles/Vol] 103 mmol/L Normal 98-107 [facility] Comment on above: Performed By: #### T 4, TSH, CMP, LIPID, FT3 #### [facility] [address] [place] [address] Dr. Teja Macias CO2 [Moles/Vol] 23.3 mmol/L Normal 21.0-32.0 [facility] Comment on above: Performed By: #### T 4, TSH, CMP, LIPID, FT3 #### [facility] [address] [place] [address] Dr. Teja Macias Creatinine [Mass/Vol] 0.65 mg/dL Normal 0.55-1.02 [facility] Comment on above: Performed By: #### T 4, TSH, CMP, LIPID, FT3 #### [facility] [address] [place] [address] Dr. Teja Macias EGFR-AF CENTRAL AFRICAN >60 Normal >=60 [facility] Comment on above: Performed By: #### T 4, TSH, CMP, LIPID, FT3 #### [facility] [address] [place] [address] Dr. Teja Macias EGFR-NON AF CENTRAL AFRICAN >60 Normal >=60 [facility] Comment on above: Performed By: #### T 4, TSH, CMP, LIPID, FT3 #### [facility] [address] [place] [address] Dr. Teja Macias Globulin (S) [Mass/Vol] 4.6 g/dL Normal [facility] Comment on above: Performed By: #### T 4, TSH, CMP, LIPID, FT3 #### [facility] [address] [place] [address] Dr. Teja Macias Glucose [Mass/Vol] 110 mg/dL Critically high 74-106 [facility] Comment on above: Performed By: #### T 4, TSH, CMP, LIPID, FT3 #### [facility] [address] [place] [address] Dr. Teja Macias Potassium [Moles/Vol] 3.8 mmol/L Normal 3.5-5.1 [facility] Comment on above: Performed By: #### T 4, TSH, CMP, LIPID, FT3 #### [facility] [address] [address] [address] Teja Macias Protein [Mass/Vol] 7.6 g/dL Normal 6.4-8.2 [facility] Comment on above: Performed By: #### T 4, TSH, CMP, LIPID, FT3 #### [facility] [address] [address] [address] Teja Macias Sodium [Moles/Vol] 138 mmol/L Normal 136-145 [facility] Comment on above: Performed By: #### T 4, TSH, CMP, LIPID, FT3 #### [facility] [address] [address] [address] Teja Macias Urea nitrogen [Mass/Vol] 15.0 mg/dL Normal 7.0-18.0 [facility] Comment on above: Performed By: #### T 4, TSH, CMP, LIPID, FT3 #### [facility] [address] [address] [address] Teja Macias Urea nitrogen/Creatinine [Mass ratio] 23.1 mg/mg Normal [facility] Comment on above: Performed By: #### T 4, TSH, CMP, LIPID, FT3 #### [facility] [address] [address] [address] Teja Macias T4on 01-23-2022 T4 [Mass/Vol] 6.20 ug/dL Normal 4.80-13.90 [facility] Comment on above: Performed By: #### T 4, TSH, CMP, LIPID, FT3 ####[facility] [address] [address] Teja Macias TSHon 01-23-2022 TSH 3.271 uIU/mL Normal 0.358-3.740 [facility] Comment on above: Performed By: #### T 4, TSH, CMP, LIPID, FT3 #### [facility] [address] [address] [address] Teja Macias TSH RANGE SEE BELOW Normal [facility] Comment on above: Result Comment: <0.3 4 UIU/ml HYPERTHYROID 0.34-5.60 UIU/ml EUTHYROID >5.60 UIU/ml HYPOTHYROID Performed By: #### T 4, TSH, CMP, LIPID, FT3 #### [facility] [address] [address] [address] Teja Macias VITAMIN D 25 OHon 01-23-2022 VIT D 25-OH 7.6 ng/mL Normal [facility] Comment on above: Performed By: #### V ITAD #### [facility] [address] [address] [address] Teja Macias VIT D RANGES SEE BELOW Normal [facility] Comment on above: Result Comment: <20 ng/mL Vit D deficient 20 - <30 ng/mL Vit D insufficient 30 - 100 ng/mL Vit D sufficient >100 ng/mL Potential Toxicity Performed By: #### V ITAD #### [facility] [address] [address] [address] Teja Macias Complete Blood Count Auto Di ffon 02-05-2019 MCH Entitic mass (RBC) 33.6 g/dL Normal 32.0-35.0 [facility] Comment on above: Performed By: #### C BC, CMP, LIPID, T4T #### [facility] [address] Comprehensive Metabolic Pane al 02-05-2019 Albumin mass conc 3.6 g/dL Normal 3.2-5.5 [facility] Comment on above: Performed By: #### C BC, CMP, LIPID, T4T #### [facility] [address] [place] [address] [place] ALT enzyme act/vol 34 U/L Normal 10-60 [facility] Comment on above: Performed By: #### C BC, CMP, LIPID, T4T #### [facility] [address] Estimated GFR ( [place] > 60 Normal [facility] Comment on above: Result Comment: GFR estimated reference range: According to KDOQI guidelines, <60 ml/min/1.73m2 is sufficient to diagnose a patient with chronic kidney disease. Performed By: #### C BC, CMP, LIPID, T4T #### [facility] [address] [place] [address] Estimated GFR (Non- Am > 60 Normal [facility] Comment on above: Performed By: #### C BC, CMP, LIPID, T4T #### [address] Laboratory Studieson 019 Albumin mass conc (Body fld) 3.6 gm/dL 3.2-5.5 [facility] Albumin/Globulin mass ratio 0.9 {ratio} Normal [facility] Comment on above: Performed By: #### C BC, CMP, LIPID, T4T #### [address] ALP enzyme act/vol 80 U/L Normal 32-92 [facility] Comment on above: Performed By: #### C BC, CMP, LIPID, T4T #### [address] ALT No additional P-5'-P enzyme act/vol 34 U/L 10-60 [facility] AST enzyme act/vol 29 U/L Normal 10-42 [facility] Comment on above: Performed By: #### C BC, CMP, LIPID, T4T #### [address] Basophils #/vol (Bld) 0.0 10*3/uL Normal 0.0-0.2 [facility] Comment on above: Result Comment: PERF ORMED BY: [place] [address] HAMILTON M.D. Performed By: #### C BC, CMP, LIPID, T4T #### [address] Basophils/100 WBC (Bld) 0.5 % Normal . [facility] Comment on above: Performed By: #### C BC, CMP, LIPID, T4T #### [facility] [address] [place] [address] [place] Bilirubin mass conc 0.5 mg/dL Normal 0.3-1.2 [facility] Comment on above: Performed By: #### C BC, CMP, LIPID, T4T #### [facility] [address] Calcium mass conc 8.9 mg/dL Normal 8.2-10.2 [facility] Comment on above: Performed By: #### C BC, CMP, LIPID, T4T #### [facility] [address] Chloride molar conc 104 mmol/L Normal 95-114 [facility] Comment on above: Performed By: #### C BC, CMP, LIPID, T4T #### [facility] [address] [id number] [place] Cholesterol in HDL mass conc 34 mg/dL Low 35-85 [facility] Comment on above: HDL CHOL ATP-III CLA SSIFICATION Cardiovascular Risk HDL > or equal to 60 mg/dL LOW HDL < 40 mg/dL HIGH Result Comment: HDL CHOL ATP-III CLASSIFICATION Cardiovascular Risk HDL > or equal to 60 mg/dL LOW HDL < 40 mg/dL HIGH Performed By: #### C BC, CMP, LIPID, T4T #### [facility] [address] [place] [address] [place] Cholesterol in LDL mass conc 105 mg/dL High 0-100 [facility] Comment on above: LDL ATP III CLASSIFI CATION LDL less than 100 mg/dL Optimal LDL 100-129 mg/dL Near or above optimal LDL 130-159 mg/dL Borderline high LDL 160-189 mg/dL High LDL greater than 189 mg/dL Very high Cholesterol in VLDL mass conc 27 mg/dL [facility] Cholesterol mass conc 166 mg/dL Normal 140-200 [facility] Comment on above: Chol less than 200 m g/dl low risk Chol 201-239 mg/dl borderline risk Chol 240 mg/dl and greater high risk Result Comment: Chol less than 200 mg/dl low risk Chol 201-239 mg/dl borderline risk Chol 240 mg/dl and greater high risk Performed By: #### C BC, CMP, LIPID, T4T #### [address] Cholesterol.total/Cho lesterol in HDL mass ratio 4.9 {ratio} Normal <5.0 [facility] Comment on above: Performed By: #### C BC, CMP, LIPID, T4T #### [address] CO2 molar conc 25.4 mmol/L Normal 22.0-30.0 [facility] Comment on above: Performed By: #### C BC, CMP, LIPID, T4T #### [address] Creatinine mass conc 0.75 mg/dL Normal 0.44-1.03 [facility] Comment on above: Performed By: #### C BC, CMP, LIPID, T4T #### [facility] [address] [place] [address] Eosinophils #/vol (Bld) 0.5 10*3/uL High 0.0-0.45 [facility] Comment on above: Performed By: #### C BC, CMP, LIPID, T4T #### [address] Eosinophils/100 WBC (Bld) 5.0 % Normal . [facility] Comment on above: Performed By: #### C BC, CMP, LIPID, T4T #### [facility] [address] Erythrocyte distribution width Ratio (RBC) 14.7 % Normal 11.9-15.3 [facility] Comment on above: Performed By: #### C BC, CMP, LIPID, T4T #### [address] GFR/1.73 sq M predicted among blacks MDRD vol rate/area (S/P/Bld) mL/min/{1.73_m2} [facility] Comment on above: GFR estimated refere nce range: According to KDOQI guidelines, <60 ml/min/1.73m2 is sufficient to diagnose a patient with chronic kidney disease. GFR/1.73 sq M predicted among non-blacks MDRD vol rate/area (S/P/Bld) mL/min/{1.73_m2} [facility] Globulin mass conc (S) 3.8 g/dL Normal [facility] Comment on above: Performed By: #### C BC, CMP, LIPID, T4T #### [address] Glucose mass conc 104 mg/dL High 70-100 [facility] Comment on above: ADA recommended refe rence range Random Glucose Reference Range is dependent on time and content of last meal. Glucose of more than 200 mg/dL in a nonstressed, ambulatory subject supports the diagnosis of Diabetes Mellitus. Result Comment: [place] om Glucose Reference Range is dependent on time and content of last meal. Glucose of more than 200 mg/dL in a nonstressed, ambulatory subject supports the diagnosis of Diabetes Mellitus. ADA recommended reference range Performed By: #### C BC, CMP, LIPID, T4T #### [facility] [address] [place] [address] Hematocrit Volume Fraction (Bld) 39.2 % Normal 34.0-46.4 [facility] Comment on above: Performed By: #### C BC, CMP, LIPID, T4T #### [address] Hemoglobin mass conc (Bld) 13.2 g/dL Normal 11.8-15.4 [facility] Comment on above: Performed By: #### C BC, CMP, LIPID, T4T #### [address] Lymphocytes #/vol (Bld) 2.6 10*3/uL Normal 1.00-4.8 [facility] Comment on above: Performed By: #### C BC, CMP, LIPID, T4T #### [address] Lymphocytes/100 WBC (Bld) 28.2 % Normal . [facility] Comment on above: Performed By: #### C BC, CMP, LIPID, T4T #### [address] MCH Entitic mass (RBC) 28.5 pg Normal 24.7-34.3 [facility] Comment on above: Performed By: #### C BC, CMP, LIPID, T4T #### [address] MCHC mass conc (RBC) 33.6 g/dL 32.0-35.0 [facility] MCV Entitic volume (RBC) 84.8 fL Normal 80-100 [facility] Comment on above: Performed By: #### C BC, CMP, LIPID, T4T #### [address] Monocytes #/vol (Bld) 0.5 10*3/uL Normal 0.0-0.8 [facility] Comment on above: Performed By: #### C BC, CMP, LIPID, T4T #### [address] Monocytes/100 WBC (Bld) 5.7 % Normal . [facility] Comment on above: Performed By: #### C BC, CMP, LIPID, T4T #### [address] Neutrophils #/vol (Bld) 5.5 10*3/uL Normal 1.8-7.7 [facility] Comment on above: Performed By: #### C BC, CMP, LIPID, T4T #### [address] Neutrophils/100 WBC (Bld) 60.6 % Normal . [facility] Comment on above: Performed By: #### C BC, CMP, LIPID, T4T #### [address] Nucleated RBC/100 WBC Ratio (Bld) 0.1 % Normal 0-0.5 [facility] Comment on above: Performed By: #### C BC, CMP, LIPID, T4T #### [address] Pharmacy Creatinine Clearance (Chem N/A [facility] Platelet mean volume Entitic volume (Bld) 8.8 fL Normal 6.3-10.7 [facility] Comment on above: Performed By: #### C BC, CMP, LIPID, T4T #### [facility] [address] [place] [address] Platelets #/vol (Bld) 296 10*3/uL Normal 150-[address] [facility] Comment on above: Performed By: #### C BC, CMP, LIPID, T4T #### [address] Potassium molar conc 4.1 mmol/L Normal 3.5-5.1 [facility] Comment on above: Performed By: #### C BC, CMP, LIPID, T4T #### [address] Protein mass conc 7.4 g/dL Normal 6.1-7.9 [facility] Comment on above: Performed By: #### C BC, CMP, LIPID, T4T #### [address] RBC #/vol (Bld) 4.62 10*6/uL Normal 3.60-5.00 [facility] Comment on above: Performed By: #### C BC, CMP, LIPID, T4T #### [address] Sodium molar conc 137 mmol/L Normal 136-146 [facility] Comment on above: Performed By: #### C BC, CMP, LIPID, T4T #### [address] T4 mass conc 7.54 ug/dL Normal 5.39-11.82 [facility] Comment on above: Result Comment: PERF ORMED BY: [place] [address] HAMILTON M.D. Performed By: #### C BC, CMP, LIPID, T4T #### [address] Triglyceride mass conc 137 mg/dL 35-149 [facility] Comment on above: TRIG ATP III CLASSIF ICATION TRIG less than 150 mg/dL Normal TRIG 150-199 mg/dL Borderline high TRIG 200-500 mg/dL High TRIG greater than 500 mg/dL Very high Standard traceable to the Center for Disease Conrtrol and Prevention (CDC) test method. Urea nitrogen mass conc 10 mg/dL Normal 9-23 [facility] Comment on above: Performed By: #### C BC, CMP, LIPID, T4T #### [facility] [address] [id number] [facility] WBC #/vol (Bld) 9.1 10*3/uL Normal 4.5-11.0 [facility] Comment on above: Performed By: #### C BC, CMP, LIPID, T4T #### [facility] [address] Lipid Panelon 02-05-2019 LDL Cholesterol,Calculate d 105 mg/dL High 0-100 [facility] Comment on above: Result Comment: LDL ATP III CLASSIFICATION LDL less than 100 mg/dL Optimal LDL 100-129 mg/dL Near or above optimal LDL 130-159 mg/dL Borderline high LDL 160-189 mg/dL High LDL greater than 189 mg/dL Very high Performed By: #### C BC, CMP, LIPID, T4T #### [facility] [address] Triglyceride w/Reflex 137 mg/dL Normal 35-149 [facility] Comment on above: Result Comment: TRIG ATP III CLASSIFICATION TRIG less than 150 mg/dL Normal TRIG 150-199 mg/dL Borderline high TRIG 200-500 mg/dL High TRIG greater than 500 mg/dL Very high Standard traceable to the Center for Disease Conrtrol and Prevention (CDC) test method. Performed By: #### C BC, CMP, LIPID, T4T #### [facility] [address] VLDL CHOLESTEROL 27 mg/dL Normal [facility] Comment on above: Performed By: #### C BC, CMP, LIPID, T4T #### [facility] [address] [id number] [facility] Vital Signs Date Time Vital Sign Value Performing Clinician Facility NEGATED: Highlighted row BMI (Body Mass Index) STAFF NON [facility] NEGATED: Highlighted row Body Temperature STAFF NON [facility] NEGATED: Highlighted row BP Diastolic STAFF NON [facility] NEGATED: Highlighted row BP Systolic STAFF NON [facility] NEGATED: Highlighted row Height STAFF NON [facility] NEGATED: Highlighted row Pulse (Heart Rate) STAFF NON [facility] NEGATED: Highlighted row Pulse Oximetry STAFF [facility] NEGATED: Highlighted row Respiratory Rate STAFF NON [facility] NEGATED: Highlighted row Weight STAFF [facility] Encounters Encounter Date Encounter Type Care Provider Facility Start: 01-12-2023 End: 01-13-[address] GRIMALDO LISTED REQUEST Facility: Start: 10-30-2022 End: 10-31-[address] MEHRAN JACKSON . Facility:[facility] Start: 10-02-2022 End: 10-03-[address] MEHRAN JACKSON . Facility: Start: 02-23-[address] MEHRAN JACKSON . Facili ty:[facility] Start: 01-26-2022 Encounter for genera l adult medical examination without abnormal findings DR MEHRAN JACKSON . [facility] Start: 01-23-2022 End: 01-24-[address] MEHRAN JACKSON . Facility:[facility] Start: 01-23-2022 End: 01-24-2022 Encounter for general adult medical examination without abnormal findings DR MEHRAN JACKSON . Facility:[facility] Start: 02-05-2019 End: 02-05-2019 Departed Referred STAFF [facility] Payers Date Payer Category Payer Unknown [id number] 2.16.84 [id number] 1977 Unknown [id number] 2.16.84 [id number] 1977 Unknown [id number] 2.16.84 [id number] 1977 Unknown [id number] 2.16.84 [id number] 1959 Self-pay [id number] 1959 Unknown [id number] 1957 Unknown [id number] Unknown [id number] 2.16.84 [id number] Chief Complaint and Reason for Visit Encounter Admit Date Chief Complaint Reason for V isit Departed Referred February 05, 2019 10:17am wellness Summary Purpose Family History No Family History Records FoundNo Family History Records Found Advance Directives No Advanced Directives Records FoundNo Advanced Directives Records Found Additional Source Comments INFORMATION SOURCE (unrecogn ized section and content) DATE CREATED AUTHOR 02/12/2019 [facility] DATE CREATED AUTHOR AUTHOR'S ORGANIZ ATION 01/12/2023 [facility] FOR RECORDS PERTAINING TO PATIENTS WHO ARE OR HAVE BEEN ENROLLED IN A CHEMICAL DEPENDENCY/SUBSTANCEABUSE PROGRAM, SOME INFORMATION MAY BE OMITTED. This clinical summary was aggregated from multiple sources. Caution should be exercised in using it in the provision of clinical care. This summary normalizes information from multiple sources, and as a consequence, information in this document may materially change the coding, format and clinical context of patient data. In addition, data may be omitted in some cases. CLINICAL DECISIONS SHOULD BE BASED ON THE PRIMARY CLINICAL RECORDS. [employer] provides no warranty or guarantee of the accuracy or completeness of information in this document.
[2024-05-10 15:26] LABS: Free T3 2.85 pg/mL (2.18-3.98); Thyroid Stimulating Hormone 2.137 uIU/mL (0.358-3.740)
== END 2024-05-10 12:28 | disposition home or self-care (01) ==
LOC: LAB 12:28
PROVIDERS: PCP Family Medicine; Visit Provider Family Medicine
DX: E03.9 Hypothyroidism, unspecified (principal)
CPT/HCPCS: 36415; 84436; 84443; 84481

== ENCOUNTER 2024-11-12 12:10 | Outpatient (REF) | payer OTHER, SELFPAY ==
--- OUTSIDE RECORDS SUMMARY | 2024-11-17 12:22 | XMS_ITS | CCD ---
Author Organization [facility] Care Team Providers Care Bureau Director Name Role Phone NON, STAFF Primary Care Physician Unavailab Say Hannon Attending Physician Unavailable REQUEST, NONE LISTED Admitting Unavaila ble HOY ., DR LAURENT Primary Care Unavailable REQUEST, NONE LISTED Attending Unavaila ble REQUEST, NONE LISTED Consulting Unavaila ble HOY ., DR LAURENT Primary Care Unavailable HOY ., DR LAURENT Admitting Unavailable HOY ., DR LAURENT Attending Unavailable HOY ., DR LAURENT Primary Care Unavailable HOY ., DR LAURENT Admitting Unavailable HOY ., DR LAURENT Attending Unavailable HOY ., DR LAURENT Consulting Unavailable HOY ., DR LAURENT Consulting Unavailable HOY ., DR LAURENT Primary Care Unavailable HOY ., DR LAURENT Admitting Unavailable HOY ., DR LAURENT Attending Unavailable ANU RICHMOND Consulting Unavailable HOY ., DR LAURENT Consulting Unavailable HOY ., DR LAURENT Primary Care Unavailable HOY ., DR LAURENT Admitting Unavailable HOY ., DR LAURENT Attending Unavailable ANU PABON Consulting Unavailable LUIS ANTONIO BAEZA Consulting Unavailable Mehran Jackson MD Primary Care Provider [phone] WES SORENSEN Attending Unavailable WES SORENSEN Attending Unavailable Wes Sorensen Attending Unavailable Wes Sorensen Admitting Unavailable Medications Current Medications Medication Drug Class(es) Dates Sig (Normalized) Sig (Original) ibuprofen 800 mg oral tablet (4 sources) Nonsteroidal Anti-inflammatory Drug take 1 tablet by mouth every six hours as needed for pain ibuprofen 800 MG tablet Take 800 mg by mouth every 6 (six) hours if needed for mild pain. Active levothyroxine sodium 0.05 mg oral tablet (4 sources) l-Thyroxine take 1 tablet by mouth in the morning levothyroxine (Synthroid, Levoxyl) 50 MCG tablet Take 50 mcg by mouth in the morning. Take on an empty stomach.. Active liothyronine sodium 0.005 mg oral tablet (4 sources) l-Triiodothyronine take 2 tablets by mouth in the morning liothyronine (Cytomel) 5 MCG tablet Take 10 mcg by mouth in the morning. Active meclizine hydrochloride 25 mg oral tablet (4 sources) Antiemetic Start: 05-12-2022 take 1 tablet by mouth three times daily as needed for dizziness meclizine (Antivert) 25 MG tablet Take 25 mg by mouth 3 (three) times a day as needed for dizziness. 05/12/2022 Active triamcinolone acetonide 1 mg/ml topical cream (3 sources) Corticosteroid Start: 09-04-2024 triamcinolone (Kenalog) 0.1 % cream Apply 1 Application topically in the morning and 1 Application before bedtime. 09/04/2024 Active Completed/Discontinued Medications Medication Drug Class(es) Dates Sig (Normalized) Sig (Original) medroxyPROGESTERone acetate 10 mg oral tablet (3 sources) Progestin Start: 3 End: 5 take 1 tablet by mouth in the morning medroxyPROGESTERone (Provera) 10 MG tablet Indications: Abnormal uterine bleeding (AUB) Take 1 tablet (10 mg) by mouth in the morning. Take 1 tablet by mouth daily for 7 days beginning on day 16 of the menstrual cycle.. 30 tablet 1 04/30/2023 10/22/2024 Discontinued (Other) Problems Active Problems Problem Classification Problem Date Documented Da te Episodic/Chronic Joint disorders and dislocations; trauma-related (4 sources) Unspecified internal derangement of right knee; Translations: [UNS INTERNAL DERANGEMENT RIGHT KNEE] Onset: 10-02-2022 Chronic Menstrual disorders (2 sources) Menorrhagia; Translations: [Excessive and frequent menstruation with regular cycle] 10-22-2024 Chronic Other female genital disorders (3 sources) Abnormal uterine bleeding; Translations: [Abnormal uterine and vaginal bleeding, unspecified] 10-22-2024 Chronic Skin and subcutaneous tissue infections (4 sources) Cellulitis of right lower limb; Translations: [CELLULITIS OF RIGHT LOWER LIMB] Onset: 10-30-2022 Episodic Past or Other Problems Problem Classification Problem Date Documented Da te Episodic/Chronic Other connective tissue disease (1 source) Plantar fascial fibromatosis; Translations: [PLANTAR FASCIAL FIBROMATOSIS] Onset: 2022 Episodic Results Test Name Value Interpretation Reference Range Facility HCG ( test) Ql (U)o n 11-12-2024 Interpretation and review of laboratory results Normal [facility] Preg Test, Ur Negative Negative [facility] CBC AUTO DIFFon 01-12-2023 BASO # 0.0 103/ul Normal 0.0-0.1 [facility] Comment on above: Performed By: #### C BC #### [facility] [address] [place] [address] Dr. Teja Macias Basophils/100 WBC (Bld) 0.4 % Normal 0.2-2.0 [facility] Comment on above: Performed By: #### C BC #### [facility] [address] [place] [address] Dr. Teja Macias EO # 0.5 103/ul Normal 0.0-0.7 [facility] Comment on above: Performed By: #### C BC #### [facility] [address] [place] [address] Dr. Teja Macias Eosinophils/100 WBC (Bld) 5.6 % Normal 0.9-7.0 [facility] Comment on above: Performed By: #### C BC #### [facility] [address] [place] [address] Dr. Teja Macias Erythrocyte distribution width (RBC) [Ratio] 14.0 % Normal 11.0-15.0 [facility] Comment on above: Performed By: #### C BC #### [facility] [address] [place] [address] Dr. Teja Macias Hematocrit (Bld) [Volume fraction] 41.2 % Normal 36.0-48.0 [facility] Comment on above: Performed By: #### C BC #### [facility] [address] [place] [address] Dr. Teja Macias Hemoglobin (Bld) [Mass/Vol] 13.1 g/dL Normal 12.0-16.0 [facility] Comment on above: Performed By: #### C BC #### [facility] [address] [place] [address] Dr. Teja Macias IG # 0.04 10e3/ul Critically high 0.00-0.03 [facility] Comment on above: Performed By: #### C BC #### [facility] [address] [place] [address] Dr. Teja Macias IG % 0.5 % Normal 0.0-0.5 [facility] Comment on above: Performed By: #### C BC #### [facility] [address] [place] [address] Dr. Teja Macias LYMPH # 2.5 103/ul Normal 1.2-3.8 [facility] Comment on above: Performed By: #### C BC #### [facility] [address] [place] [address] Dr. Teja Macias Lymphocytes/100 WBC (Bld) 28.8 % Normal 20.5-60.0 [facility] Comment on above: Performed By: #### C BC #### [facility] [address] [place] [address] Dr. Teja Macias MANUAL DIFF REQ NO Normal [facility] Comment on above: Performed By: #### C BC #### [facility] [address] [place] [address] Dr. Teja Macias MCH (RBC) [Entitic mass] 28.1 pg Normal 26.7-34.0 [facility] Comment on above: Performed By: #### C BC #### [facility] [address] [place] [address] Dr. Teja Macias MCHC (RBC) [Mass/Vol] 31.8 g/dL Normal 29.9-35.2 [facility] Comment on above: Performed By: #### C BC #### [facility] [address] [place] [address] Dr. Teja Macias MCV (RBC) [Entitic vol] 88.4 fL Normal 81.0-99.0 [facility] Comment on above: Performed By: #### C BC #### [facility] [address] [address] [address] Teja Macias MONO # 0.5 103/ul Normal 0.3-0.8 [facility] Comment on above: Performed By: #### C BC #### [facility] [address] [place] [address] Dr. Teja Macias Monocytes/100 WBC (Bld) 6.1 % Normal 1.7-12.0 [facility] Comment on above: Performed By: #### C BC #### [facility] [address] [place] [address] Dr. Teja Macias NEUT # 5.0 103/ul Normal 1.4-6.5 [facility] Comment on above: Performed By: #### C BC #### [facility] [address] [place] [address] Dr. Teja Macias Neutrophils/100 WBC (Bld) 58.6 % Normal 43.0-75.0 [facility] Comment on above: Performed By: #### C BC #### [facility] [address] [place] [address] Dr. Teja Macias Platelet mean volume (Bld) [Entitic vol] 10.2 fL Normal 9.5-13.5 [facility] Comment on above: Performed By: #### C BC #### [facility] [address] [place] [address] Dr. Teja Macias PLT 299 103/ul Normal 150-450 [facility] Comment on above: Performed By: #### C BC #### [facility] [address] [place] [address] Dr. Teja Macias RBC 4.66 106/ul Normal 4.20-5.40 [facility] Comment on above: Performed By: #### C BC #### [facility] [address] [place] [address] Dr. Teja Macias WBC 8.5 103/ul Normal 4.0-11.0 [facility] Comment on above: Performed By: #### C BC #### [facility] [address] [place], [place] [address] Dr. Teja Macias LIPID PROFILEon 01-12-2023 CHOL-HDL RATIO NORM SEE BELOW Normal [facility] Comment on above: Result Comment: 3.3 - 4.4 LOW RISK 4.4 - 7.1 AVERAGE RISK 7.1 - 11.0 MODERATE RISK >11.0 HIGH RISK Performed By: #### T 4, CMP, TSH, LIPID ####[facility] [address] [place] [id number]. Teja Macias Cholesterol [Mass/Vol] 171 mg/dL Normal <=200 [facility] Comment on above: Performed By: #### T 4, CMP, TSH, LIPID ####[facility] [address] [place] [id number]. Teja Macias Cholesterol in HDL [Mass/Vol] 42 mg/dL Normal 40-60 [facility] Comment on above: Performed By: #### T 4, CMP, TSH, LIPID ####[facility] [address] [place] [id number]. Teja Macias Cholesterol in LDL [Mass/Vol] 106.8 mg/dL Normal [facility] Comment on above: Performed By: #### T 4, CMP, TSH, LIPID ####[facility] [address] [id number]. Teja Macias Cholesterol.total/Cho lesterol in HDL [Mass ratio] 4.1 {ratio} Normal [facility] Comment on above: Performed By: #### T 4, CMP, TSH, LIPID ####[facility] [address] [place] [id number]. Teja Macias HDL NORMAL > or = 60 mg/dl - LOW CARDIOVASCULAR RISK <40 mg/dl - HIGH CARDIOVASCULAR RISK Normal [facility] Comment on above: Performed By: #### T 4, CMP, TSH, LIPID ####[facility] [address] [place] [id number]. Teja Macias LDL CALC NORMAL SEE BELOW Normal [facility] Comment on above: Result Comment: <100 mg/dl OPTIMAL 100 - 129 mg/dl NEAR OR ABOVE OPTIMAL 130 - 159 mg/dl BORDERLINE HIGH 160 - 189 mg/dl HIGH >190 mg/dl VERY HIGH Performed By: #### T 4, CMP, TSH, LIPID ####[facility] [address] [address]Dr. Teja Macias Triglyceride [Mass/Vol] 111 mg/dL Normal <=150 [facility] Comment on above: Performed By: #### T 4, CMP, TSH, LIPID ####[facility] [address] [address]Dr. Teja Macias VLDL CALC 22.2 mg/dL Normal [facility] Comment on above: Performed By: #### T 4, CMP, TSH, LIPID ####[facility] [address] [address]Dr. Teja Macias PROF 14(COMP METB)on 023 Albumin [Mass/Vol] 3.3 g/dL Critically low 3.4-5.0 [facility] Comment on above: Performed By: #### T 4, CMP, TSH, LIPID ####[facility] [address] [address] [address]Dr. Teja Macias Albumin/Globulin [Mass ratio] 0.6 {ratio} Normal [facility] Comment on above: Performed By: #### T 4, CMP, TSH, LIPID ####[facility] [address] [address]Dr. Teja Macias ALP [Catalytic activity/Vol] 79 U/L Normal 46-116 [facility] Comment on above: Performed By: #### T 4, CMP, TSH, LIPID ####[facility] [address] [place] [id number]. Teja Macias ALT [Catalytic activity/Vol] 29 U/L Normal 14-59 [facility] Comment on above: Performed By: #### T 4, CMP, TSH, LIPID ####[facility] [address] [place] [address]Dr. Teja Macias Anion gap [Moles/Vol] 10.2 mmol/L Normal [facility] Comment on above: Performed By: #### T 4, CMP, TSH, LIPID ####[facility] [address] [place] [address]Dr. Teja Macias AST [Catalytic activity/Vol] 23 U/L Normal 15-37 [facility] Comment on above: Performed By: #### T 4, CMP, TSH, LIPID ####[facility] [address] [place] [address]Dr. Teja Macias Bilirubin [Mass/Vol] 0.4 mg/dL Normal 0.2-1.0 [facility] Comment on above: Performed By: #### T 4, CMP, TSH, LIPID ####[facility] [address] [place] [address]Dr. Teja Macias Calcium [Mass/Vol] 8.9 mg/dL Normal 8.5-10.1 [facility] Comment on above: Performed By: #### T 4, CMP, TSH, LIPID ####[facility] [address] [place] [address]Dr. Teja Macias Chloride [Moles/Vol] 104 mmol/L Normal 98-107 [facility] Comment on above: Performed By: #### T 4, CMP, TSH, LIPID ####[facility] [address] [place] [address]Dr. Teja Macias CO2 [Moles/Vol] 28.0 mmol/L Normal 21.0-32.0 [facility] Comment on above: Performed By: #### T 4, CMP, TSH, LIPID ####[facility] [address] [place] [address]Dr. Teja Macias Creatinine [Mass/Vol] 0.67 mg/dL Normal 0.55-1.02 [facility] Comment on above: Performed By: #### T 4, CMP, TSH, LIPID ####[facility] [address] [place], [place] [address]Dr. Teja Macias EGFR-AF TUVALUAN >60 Normal >=60 [facility] Comment on above: Performed By: #### T 4, CMP, TSH, LIPID ####[facility] [address] [place] [address]Dr. Teja Macias EGFR-NON AF TUVALUAN >60 Normal >=60 [facility] Comment on above: Performed By: #### T 4, CMP, TSH, LIPID ####[facility] [address] [place] [address]Dr. Teja Macias Globulin (S) [Mass/Vol] 5.2 g/dL Normal [facility] Comment on above: Performed By: #### T 4, CMP, TSH, LIPID ####[facility] [address] [place] [address]Dr. Teja Macias Glucose [Mass/Vol] 97 mg/dL Normal 74-106 [facility] Comment on above: Performed By: #### T 4, CMP, TSH, LIPID ####[facility] [address] [place] [address]Dr. Teja Macias Potassium [Moles/Vol] 4.2 mmol/L Normal 3.5-5.1 [facility] Comment on above: Performed By: #### T 4, CMP, TSH, LIPID ####[facility] [address] [place] [address]Dr. Teja Macias Protein [Mass/Vol] 8.5 g/dL Critically high 6.4-8.2 [facility] Comment on above: Performed By: #### T 4, CMP, TSH, LIPID ####[facility] [address] [place] [address]Dr. Teja Macias Sodium [Moles/Vol] 138 mmol/L Normal 136-145 [facility] Comment on above: Performed By: #### T 4, CMP, TSH, LIPID ####[facility] [address] [place] [address]Dr. Teja Macias Urea nitrogen [Mass/Vol] 12.0 mg/dL Normal 7.0-18.0 [facility] Comment on above: Performed By: #### T 4, CMP, TSH, LIPID ####[facility] [address] [place] [address]Dr. Teja Macias Urea nitrogen/Creatinine [Mass ratio] 17.9 mg/mg Normal [facility] Comment on above: Performed By: #### T 4, CMP, TSH, LIPID ####[facility] [address] [place], [place] [address]Gy. Teja Macias T4on 01-12-2023 T4 [Mass/Vol] 5.00 ug/dL Normal 4.80-13.90 [facility] Comment on above: Performed By: #### T 4, CMP, TSH, LIPID ####[facility] [address] [place], [place] [address]Kj. Teja Macias TSHon 01-12-2023 TSH 2.338 uIU/mL Normal 0.358-3.740 [facility] Comment on above: Performed By: #### T 4, CMP, TSH, LIPID ####[facility] [address] [place], [place] [address]Pa. Teja Macias US KIM DOP LEG RTon 10-31-19 [...] ANU RICHMOND Date: 2022-10-31 08:51 Normal [facility] MRI KNEE RT WO CONon 023 MRI [...] ANU PABON Date: 2022-10-02 21:54 Normal [facility] XR ANKLE LT MIN 3 Von 2022 [...] ANTONIO BAEZA Date: 2022-10-02 17:50 Normal [facility] XR KNEE RT 4V or >on 023 [...] ANTONIO BAEZA Date: 2022-10-02 17:52 Normal [facility] CBC AUTO DIFFon 01-23-2022 BASO # 0.0 103/ul Normal 0.0-0.1 [facility] Comment on above: Performed By: #### C BC ####[facility] [address] [place] [address]Dr. Teja Macias Basophils/100 WBC (Bld) 0.3 % Normal 0.2-2.0 [facility] Comment on above: Performed By: #### C BC ####[facility] [address] [place], [place] [address]Dr. Teja Macias EO # 0.5 103/ul Normal 0.0-0.7 [facility] Comment on above: Performed By: #### C BC ####[facility] [address] [place], [place] [address]Dr. Teja Macias Eosinophils/100 WBC (Bld) 5.1 % Normal 0.9-7.0 [facility] Comment on above: Performed By: #### C BC ####[facility] [address] [address]Dr. Teja Macias Erythrocyte distribution width (RBC) [Ratio] 14.6 % Normal 11.0-15.0 [facility] Comment on above: Performed By: #### C BC ####[facility] [address] [place], [place] [address]Dr. Teja Macias Hematocrit (Bld) [Volume fraction] 38.7 % Normal 36.0-48.0 [facility] Comment on above: Performed By: #### C BC ####[facility] [address] [place], [place] [address]Dr. Teja Macias Hemoglobin (Bld) [Mass/Vol] 12.2 g/dL Normal 12.0-16.0 [facility] Comment on above: Performed By: #### C BC ####[facility] [address] [address]Dr. Teja Macias IG # 0.02 10e3/ul Normal 0.00-0.03 [facility] Comment on above: Performed By: #### C BC ####[facility] [address] [place], [place] [address]Dr. Teja Macias IG % 0.2 % Normal 0.0-0.5 [facility] Comment on above: Performed By: #### C BC ####[facility] [address] [place], [place] [address]Dr. Teja Macias LYMPH # 2.1 103/ul Normal 1.2-3.8 [facility] Comment on above: Performed By: #### C BC ####[facility] [address] [place], [place] [address]Dr. Teja Macias Lymphocytes/100 WBC (Bld) 22.4 % Normal 20.5-60.0 [facility] Comment on above: Performed By: #### C BC ####[facility] [address] [place], [place] [address]Dr. Teja Macias MANUAL DIFF REQ NO Normal [facility] Comment on above: Performed By: #### C BC ####[facility] [address] [place], [place] [address]Dr. Teja Macias MCH (RBC) [Entitic mass] 27.5 pg Normal 26.7-34.0 [facility] Comment on above: Performed By: #### C BC ####[facility] [address] [place], [place] [address]Dr. Teja Macias MCHC (RBC) [Mass/Vol] 31.5 g/dL Normal 29.9-35.2 [facility] Comment on above: Performed By: #### C BC ####[facility] [address] [place], [place] [address]Dr. Teja Macias MCV (RBC) [Entitic vol] 87.2 fL Normal 81.0-99.0 [facility] Comment on above: Performed By: #### C BC ####[facility] [address] [place], [place] [address]DrChristiano Macias MONO # 0.4 103/ul Normal 0.3-0.8 [facility] Comment on above: Performed By: #### C BC ####[facility] [address] [place], [place] [address]Dr. Teja Macias Monocytes/100 WBC (Bld) 4.6 % Normal 1.7-12.0 [facility] Comment on above: Performed By: #### C BC ####[facility] [address] [place], [place] [address]Dr. Teja Macias NEUT # 6.3 103/ul Normal 1.4-6.5 [facility] Comment on above: Performed By: #### C BC ####[facility] [address] [place], [place] [address]Dr. Teja Macias Neutrophils/100 WBC (Bld) 67.4 % Normal 43.0-75.0 [facility] Comment on above: Performed By: #### C BC ####[facility] [address] [place], [place] [address]Dr. Teja Macias Platelet mean volume (Bld) [Entitic vol] 10.3 fL Normal 9.5-13.5 [facility] Comment on above: Performed By: #### C BC ####[facility] [address] [place], [place] [address]Dr. Teja Macias PLT 278 103/ul Normal 150-450 [facility] Comment on above: Performed By: #### C BC ####[facility] [address] [place], [place] [address]Dr. Teja Gilberto RBC 4.44 106/ul Normal 4.20-5.40 [facility] Comment on above: Performed By: #### C BC ####[facility] [address] [place], [place] [address]Dr. Lindalynn Gilberto WBC 9.3 103/ul Normal 4.0-11.0 [facility] Comment on above: Performed By: #### C BC ####[facility] [address] [place] [address]DrChristiano Macias FREE T3on 01-23-2022 FREE T3 1.74 pg/mlL Critically low 2.18-3.98 [facility] Comment on above: Performed By: #### T 4, TSH, CMP, LIPID, FT3 #### [facility] [address] [address] [address] Teja Macias GLYCOHEMOGLOBIN A1Con 2021 ADA RECOMMENDATION SEE BELOW Normal [facility] Comment on above: Result Comment: ADA RECOMMENDED LIMIT 4.0 - 6.0 ADA THERAPEUTIC TARGET < 7.0 ACTION SUGGESTED > 7.0 Performed By: #### A 1C ####[facility] [address] [place] [address]DrChristiano Macias Glucose [Mass/Vol] 114 mg/dL Normal [facility] Comment on above: Performed By: #### A 1C ####[facility] [address] [place] [address]DrChristiano Macias HbA1c (Bld) [Mass fraction] 5.6 % Normal 4.5-6.2 [facility] Comment on above: Performed By: #### A 1C ####[facility] [address] [place] [address]Dr. Teja Macias LIPID PROFILEon 01-23-2022 CHOL-HDL RATIO NORM SEE BELOW Normal [facility] Comment on above: Result Comment: 3.3 - 4.4 LOW RISK 4.4 - 7.1 AVERAGE RISK 7.1 - 11.0 MODERATE RISK >11.0 HIGH RISK Performed By: #### T 4, TSH, CMP, LIPID, FT3 #### [facility] [address] [address] [address] Teja Macias Cholesterol [Mass/Vol] 155 mg/dL Normal <=200 [facility] Comment on above: Performed By: #### T 4, TSH, CMP, LIPID, FT3 #### [facility] [address] [address] [address] Teja Macias Cholesterol in HDL [Mass/Vol] 36 mg/dL Critically low 40-60 [facility] Comment on above: Performed By: #### T 4, TSH, CMP, LIPID, FT3 #### [facility] [address] [address] [address] Teja Macias Cholesterol in LDL [Mass/Vol] 93.6 mg/dL Normal [facility] Comment on above: Performed By: #### T 4, TSH, CMP, LIPID, FT3 #### [facility] [address] [address] [address] Teja Macias Cholesterol.total/Cho lesterol in HDL [Mass ratio] 4.3 {ratio} Normal [facility] Comment on above: Performed By: #### T 4, TSH, CMP, LIPID, FT3 #### [facility] [address] [place] [address] Dr. Teja Macias HDL NORMAL > or = 60 mg/dl - LOW CARDIOVASCULAR RISK <40 mg/dl - HIGH CARDIOVASCULAR RISK Normal [facility] Comment on above: Performed By: #### T 4, TSH, CMP, LIPID, FT3 #### [facility] [address] [place] [address] Dr. Teja Macias LDL CALC NORMAL SEE BELOW Normal [facility] Comment on above: Result Comment: <100 mg/dl OPTIMAL 100 - 129 mg/dl NEAR OR ABOVE OPTIMAL 130 - 159 mg/dl BORDERLINE HIGH 160 - 189 mg/dl HIGH >190 mg/dl VERY HIGH Performed By: #### T 4, TSH, CMP, LIPID, FT3 #### [facility] [address] [address] [address] Teja Macias Triglyceride [Mass/Vol] 127 mg/dL Normal <=150 [facility] Comment on above: Performed By: #### T 4, TSH, CMP, LIPID, FT3 #### [facility] [address] [place] [address] Dr. Teja Macias VLDL CALC 25.4 mg/dL Normal [facility] Comment on above: Performed By: #### T 4, TSH, CMP, LIPID, FT3 #### [facility] [address] [place] [address] Dr. Teja Macias PROF 14(COMP METB)on 022 Albumin [Mass/Vol] 3.0 g/dL Critically low 3.4-5.0 [facility] Comment on above: Performed By: #### T 4, TSH, CMP, LIPID, FT3 #### [facility] [address] [place] [address] Dr. Teja Macias Albumin/Globulin [Mass ratio] 0.7 {ratio} Normal [facility] Comment on above: Performed By: #### T 4, TSH, CMP, LIPID, FT3 #### [facility] [address] [place] [address] Dr. Teja Macias ALP [Catalytic activity/Vol] 71 U/L Normal 46-116 [facility] Comment on above: Performed By: #### T 4, TSH, CMP, LIPID, FT3 #### [facility] [address] [place] [address] Dr. Teja Macias ALT [Catalytic activity/Vol] 19 U/L Normal 14-59 [facility] Comment on above: Performed By: #### T 4, TSH, CMP, LIPID, FT3 #### [facility] [address] [place] [address] Dr. Teja Macias Anion gap [Moles/Vol] 15.5 mmol/L Normal [facility] Comment on above: Performed By: #### T 4, TSH, CMP, LIPID, FT3 #### [facility] [address] [place] [address] Dr. Teja Macias AST [Catalytic activity/Vol] 16 U/L Normal 15-37 [facility] Comment on above: Performed By: #### T 4, TSH, CMP, LIPID, FT3 #### [facility] [address] [place] [address] Dr. Teja Macias Bilirubin [Mass/Vol] 0.4 mg/dL Normal 0.2-1.0 [facility] Comment on above: Performed By: #### T 4, TSH, CMP, LIPID, FT3 #### [facility] [address] [place] [address] Dr. Teja Macias Calcium [Mass/Vol] 8.7 mg/dL Normal 8.5-10.1 [facility] Comment on above: Performed By: #### T 4, TSH, CMP, LIPID, FT3 #### [facility] [address] [place] [address] Dr. Teja Macias Chloride [Moles/Vol] 103 mmol/L Normal 98-107 [facility] Comment on above: Performed By: #### T 4, TSH, CMP, LIPID, FT3 #### [facility] [address] [place] [address] Dr. Teja Macias CO2 [Moles/Vol] 23.3 mmol/L Normal 21.0-32.0 [facility] Comment on above: Performed By: #### T 4, TSH, CMP, LIPID, FT3 #### [facility] [address] [place] [address] Dr. Teja Macias Creatinine [Mass/Vol] 0.65 mg/dL Normal 0.55-1.02 [facility] Comment on above: Performed By: #### T 4, TSH, CMP, LIPID, FT3 #### [facility] [address] [place] [address] Dr. Teja Macias EGFR-AF TUVALUAN >60 Normal >=60 [facility] Comment on above: Performed By: #### T 4, TSH, CMP, LIPID, FT3 #### [facility] [address] [place] [address] Dr. Teja Macias EGFR-NON AF TUVALUAN >60 Normal >=60 [facility] Comment on above: Performed By: #### T 4, TSH, CMP, LIPID, FT3 #### [facility] [address] [place] [address] Dr. Teja Macias Globulin (S) [Mass/Vol] 4.6 g/dL Normal [facility] Comment on above: Performed By: #### T 4, TSH, CMP, LIPID, FT3 #### [facility] [address] [place] [address] Dr. Teja Macias Glucose [Mass/Vol] 110 mg/dL Critically high 74-106 [facility] Comment on above: Performed By: #### T 4, TSH, CMP, LIPID, FT3 #### [facility] [address] [address] [address] Teja Macias Potassium [Moles/Vol] 3.8 mmol/L Normal 3.5-5.1 [facility] Comment on above: Performed By: #### T 4, TSH, CMP, LIPID, FT3 #### [facility] [address] [address] [address] Teja Macias Protein [Mass/Vol] 7.6 g/dL Normal 6.4-8.2 [facility] Comment on above: Performed By: #### T 4, TSH, CMP, LIPID, FT3 #### [facility] [address] [address] [address] Teja Macias Sodium [Moles/Vol] 138 mmol/L Normal 136-145 [facility] Comment on above: Performed By: #### T 4, TSH, CMP, LIPID, FT3 #### [facility] [address] [address] [address] Teja Macias Urea nitrogen [Mass/Vol] 15.0 mg/dL Normal 7.0-18.0 [facility] Comment on above: Performed By: #### T 4, TSH, CMP, LIPID, FT3 #### [facility] [address] [address] [address] Teja Macias Urea nitrogen/Creatinine [Mass ratio] 23.1 mg/mg Normal [facility] Comment on above: Performed By: #### T 4, TSH, CMP, LIPID, FT3 #### [facility] [address] [address] [address] Teja Macias T4on 01-23-2022 T4 [Mass/Vol] 6.20 ug/dL Normal 4.80-13.90 [facility] Comment on above: Performed By: #### T 4, TSH, CMP, LIPID, FT3 ####[facility] [id number] [address]. Teja Macias TSHon 01-23-2022 TSH 3.271 uIU/mL Normal 0.358-3.740 [facility] Comment on above: Performed By: #### T 4, TSH, CMP, LIPID, FT3 #### [facility] [address] [place] [address] [address] [address] Teja Macias TSH RANGE SEE BELOW Normal [facility] Comment on above: Result Comment: <0.3 4 UIU/ml HYPERTHYROID 0.34-5.60 UIU/ml EUTHYROID >5.60 UIU/ml HYPOTHYROID Performed By: #### T 4, TSH, CMP, LIPID, FT3 #### [facility] [address] [place] [address] [address] [address] Teja Macias VITAMIN D 25 OHon 01-23-2022 VIT D 25-OH 7.6 ng/mL Normal [facility] Comment on above: Performed By: #### V ITAD #### [facility] [address] [place], [place] [id number] Dr. Teja Macias VIT D RANGES SEE BELOW Normal [facility] Comment on above: Result Comment: <20 ng/mL Vit D deficient 20 - <30 ng/mL Vit D insufficient 30 - 100 ng/mL Vit D sufficient >100 ng/mL Potential Toxicity Performed By: #### V ITAD #### [facility] [address] [place] [address] [address] [address] Teja Macias Laboratory Studieson 019 Albumin mass conc (Body fld) 3.6 gm/dL 3.2-5.5 [facility] Albumin/Globulin mass ratio 0.9 {ratio} [facility] ALP enzyme act/vol 80 U/L 32-92 [facility] ALT No additional P-5'-P enzyme act/vol 34 U/L 10-60 [facility] AST enzyme act/vol 29 U/L 10-42 [facility] Basophils #/vol (Bld) 0.0 10*3/uL 0.0-0.2 [facility] Basophils/100 WBC (Bld) 0.5 % [facility] Bilirubin mass conc 0.5 mg/dL 0.3-1.2 [facility] Calcium mass conc 8.9 mg/dL 8.2-10.2 [facility] Chloride molar conc 104 mmol/L 95-114 [facility] Cholesterol in HDL mass conc 34 mg/dL Low 35-85 [facility] Comment on above: HDL CHOL ATP-III CLA SSIFICATION Cardiovascular Risk HDL > or equal to 60 mg/dL LOW HDL < 40 mg/dL HIGH Cholesterol in LDL mass conc 105 mg/dL High 0-100 [facility] Comment on above: LDL ATP III CLASSIFI CATION LDL less than 100 mg/dL Optimal LDL 100-129 mg/dL Near or above optimal LDL 130-159 mg/dL Borderline high LDL 160-189 mg/dL High LDL greater than 189 mg/dL Very high Cholesterol in VLDL mass conc 27 mg/dL [facility] Cholesterol mass conc 166 mg/dL 140-200 [facility] Comment on above: Chol less than 200 m g/dl low risk Chol 201-239 mg/dl borderline risk Chol 240 mg/dl and greater high risk Cholesterol.total/Cho lesterol in HDL mass ratio 4.9 {ratio} [facility] CO2 molar conc 25.4 mmol/L 22.0-30.0 [facility] Creatinine mass conc 0.75 mg/dL 0.44-1.03 [facility] Eosinophils #/vol (Bld) 0.5 10*3/uL High 0.0-0.45 [facility] Eosinophils/100 WBC (Bld) 5.0 % [facility] Erythrocyte distribution width Ratio (RBC) 14.7 % 11.9-15.3 [facility] GFR/1.73 sq M predicted among blacks MDRD vol rate/area (S/P/Bld) mL/min/{1.73_m2} [facility] Comment on above: GFR estimated refere nce range: According to KDOQI guidelines, <60 ml/min/1.73m2 is sufficient to diagnose a patient with chronic kidney disease. GFR/1.73 sq M predicted among non-blacks MDRD vol rate/area (S/P/Bld) mL/min/{1.73_m2} [facility] Globulin mass conc (S) 3.8 g/dL [facility] Glucose mass conc 104 mg/dL High 70-100 [facility] Comment on above: ADA recommended refe rence range Random Glucose Reference Range is dependent on time and content of last meal. Glucose of more than 200 mg/dL in a nonstressed, ambulatory subject supports the diagnosis of Diabetes Mellitus. Hematocrit Volume Fraction (Bld) 39.2 % 34.0-46.4 [facility] Hemoglobin mass conc (Bld) 13.2 g/dL 11.8-15.4 [facility] Lymphocytes #/vol (Bld) 2.6 10*3/uL 1.00-4.8 [facility] Lymphocytes/100 WBC (Bld) 28.2 % [facility] MCH Entitic mass (RBC) 28.5 pg 24.7-34.3 [facility] MCHC mass conc (RBC) 33.6 g/dL 32.0-35.0 [facility] MCV Entitic volume (RBC) 84.8 fL 80-100 [facility] Monocytes #/vol (Bld) 0.5 10*3/uL 0.0-0.8 [facility] Monocytes/100 WBC (Bld) 5.7 % [facility] Neutrophils #/vol (Bld) 5.5 10*3/uL 1.8-7.7 [facility] Neutrophils/100 WBC (Bld) 60.6 % [facility] Nucleated RBC/100 WBC Ratio (Bld) 0.1 % 0-0.5 [facility] Pharmacy Creatinine Clearance (Chem N/A [facility] Platelet mean volume Entitic volume (Bld) 8.8 fL 6.3-10.7 [facility] Platelets #/vol (Bld) 296 10*3/uL 150-450 [facility] Potassium molar conc 4.1 mmol/L 3.5-5.1 [facility] Protein mass conc 7.4 g/dL 6.1-7.9 [facility] RBC #/vol (Bld) 4.62 10*6/uL 3.60-5.00 [facility] Sodium molar conc 137 mmol/L 136-146 [facility] T4 mass conc 7.54 ug/dL 5.39-11.82 [facility] Triglyceride mass conc 137 mg/dL 35-149 [facility] Comment on above: TRIG ATP III CLASSIF ICATION TRIG less than 150 mg/dL Normal TRIG 150-199 mg/dL Borderline high TRIG 200-500 mg/dL High TRIG greater than 500 mg/dL Very high Standard traceable to the Center for Disease Conrtrol and Prevention (CDC) test method. Urea nitrogen mass conc 10 mg/dL 9-23 [facility] WBC #/vol (Bld) 9.1 10*3/uL 3.8-11.6 [facility] Vital Signs Date Time Vital Sign Value Performing Clinician Facility 11-12-2024 15:09-0500 Body mass index (BMI) [Ratio] 53.35 kg/m2 [employer] Work Phone: [facility] 11-12-2024 15:09-0500 Body weight 140.98 kg [employer] Work Phone: [facility] [employer] 11-12-2024 15:09-0500 Diastolic blood pressure 70 mm[Hg] [employer] Work Phone: [facility] 11-12-2024 15:09-0500 Systolic blood pressure 142 mm[Hg] [employer] Work Phone: [facility] 10-22-2024 15:22-0500 Body mass index (BMI) [Ratio] 53.18 kg/m2 [employer] Work Phone: [facility] [employer] 10-22-2024 15:22-0500 Body weight 140.52 kg [employer] Work Phone: [facility] [employer] NEGATED: Highlighted row BMI (Body Mass Index) STAFF [facility] NEGATED: Highlighted row Body Temperature STAFF [facility] NEGATED: Highlighted row BP Diastolic STAFF [facility] NEGATED: Highlighted row BP Systolic STAFF [facility] NEGATED: Highlighted row Height STAFF [facility] NEGATED: Highlighted row Pulse (Heart Rate) STAFF [facility] NEGATED: Highlighted row Pulse Oximetry STAFF [facility] NEGATED: Highlighted row Respiratory Rate STAFF [facility] NEGATED: Highlighted row Weight STAFF [facility] Encounters Encounter Date Encounter Type Care Provider Facility Start: 11-12-2024 End: 11-12-2024 Postop follow up visit related to original px Wes Edu DO Work Phone: [facility] Comment on above: Pre-op examination; Abnormal uterine bleeding (AUB) Start: 11-12-2024 End: 11-12-2024 Preprocedural examination done Wes Edu DO Work Phone: [facility] Start: 11-12-2024 End: 11-12-2024 ambulatory [facility] Not Available Start: 10-22-2024 End: 10-22-2024 Office outpatient visit 15 minutes Wes Edu DO Work Phone: [facility] Comment on above: Abnormal uterine ble eding (AUB); Menorrhagia with regular cycle Start: 10-22-2024 End: 10-22-2024 ambulatory [facility] Not Available Start: 10-22-2024 End: 10-22-2024 Bamboo flowsheet Wes Edu DO Work Phone: [facility] Start: 10-22-2024 End: 10-22-2024 Bamboo flowsheet Wes Edu DO Work Phone: [facility] Start: 01-12-2023 End: 01-13-2023 ambulatory NONE LISTED REQUEST Facility: Start: 10-30-2022 End: 10-31-[address] MEHRAN JACKSON . Facility:[facility] Start: 10-02-2022 End: 10-03-[address] MEHRAN JACKSON . Facility:[facility] Start: 02-23-[address] MEHRAN JACKSON . Facili ty:[facility] Start: 01-26-2022 Encounter for genera l adult medical examination without abnormal findings DR MEHRAN JACKSON . [facility] Start: 01-23-2022 End: 01-24-[address] MEHRAN JACKSON . Facility:[facility] Start: 01-23-2022 End: 01-24-2022 Encounter for general adult medical examination without abnormal findings DR MEHRAN JACKSON . Facility:[facility] Start: 02-05-2019 End: 02-05-2019 Departed Referred STAFF [facility] Procedures Date Procedure Procedure Detail Performing Clinician Start: 11-12-2024 Urine test visual color cmprsn meths Wes Sorensen DO Work Phone: Plan of Treatment Date Care Activity Detail Author Start: 11-12-2024 End: 11-12-2024 Patient encounter procedure 11/12/2024 2:30 PM EST Procedure Visit [facility] [address] [place] [id number] Wes Sorensen, DO [address] [place] [address] [facility] Start: 10-22-2024 End: 10-22-2024 Patient encounter procedure 10/22/2024 2:50 PM EST Office Visit [facility] [address] [place] [id number] Wes Sorensen, DO [address] [place], [place] [id number] Arrived [facility] Comment on above: Arrived Start: 10-22-2024 End: 10-22-2025 aPTT in Blood by Coagulation assay APTT Lab Routine Menorrhagia with regular cycle Expected: 10/22/2024 (Approximate), Expires: 10/22/2025 [facility] Comment on above: Expected: 10/22/2024 (Approximate), Expires: 10/22/2025 Start: 10-22-2024 End: 10-22-2025 US Pelvis US Pelvis w/ TV Imaging Routine Abnormal uterine bleeding (AUB) Menorrhagia with regular cycle Expected: 10/22/2024, Expires: 10/22/2025 [facility] Comment on above: Expected: 10/22/2024 , Expires: 10/22/2025 CBC W Auto Different ial panel - Blood CBC and differential Lab Routine Menorrhagia with regular cycle Ordered: 10/22/2024 [facility] Work Phone: Comment on above: Ordered: 10/22/2024 hCG, quantitative, hCG, quantitative, Lab Routine Menorrhagia with regular cycle Ordered: 10/22/2024 [facility] Comment on above: Ordered: 10/22/2024 Hemoglobin A1c/Hemoglobin.total in Blood Hemoglobin A1c Lab Routine Menorrhagia with regular cycle Ordered: 10/22/2024 [facility] Comment on above: Ordered: 10/22/2024 Prothrombin time (PT ) in Blood by Coagulation assay Protime-INR Lab Routine Menorrhagia with regular cycle Ordered: 10/22/2024 [facility] Comment on above: Ordered: 10/22/2024 Thyrotropin [Units/volume] in Serum or Plasma TSH Lab Routine Menorrhagia with regular cycle Ordered: 10/22/2024 [facility] Comment on above: Ordered: 10/22/2024 Thyroxine (T4) free [Mass/volume] in Serum or Plasma T4, free Lab Routine Menorrhagia with regular cycle Ordered: 10/22/2024 [facility] Comment on above: Ordered: 10/22/2024 Tissue exam Tissue exam Path ology and Cytology Routine Pre-op examination Abnormal uterine bleeding (AUB) Ordered: 11/12/2024 [facility] [employer] Work Phone: Comment on above: Ordered: 11/12/2024 Payers Date Payer Category Payer Self-pay 2024 Managed Care HMO (unspecified) [employer] [id number] 2024 Private Health Insurance [id number] 1975 Unknown [id number] 1977 Unknown [id number] 1977 Unknown [id number] 1977 Unknown [id number] 1977 Unknown [id number] 1977 Unknown [id number] 1959 Self-pay [id number] 1959 Unknown [id number] 1959 Unknown [id number] Unknown [id number] Social History Date Type Detail Facility Start: 07-11-2023 Tobacco smoking status DCIS Ex-smoke r [facility] History of tobacco use Current smoker [facility] History of tobacco use Cigarette Smoker [facility] Start: 07-11-2023 End: 10-22-2024 Alcoholic beverage intake Current drinker of alcohol (finding) [facility] Start: 07-11-2023 End: 10-22-2024 [facility] of Social function [facility] Start: 07-11-2023 End: 10-22-2024 Alcohol Use Disorder Identification Test - Consumption [AUDIT-C] [facility] How often to you hav e a drink containing alcohol? 2-4 times a month [facility] Average Number of Drinks Not on file [facility] Start: 07-11-2023 Tobacco Comment Last smoked >10 year s [facility] Start: 06-06-2023 Alcohol Comment caffeine: 1-2 cups per day [facility] Start: 1975 Sex assigned at Female N [facility] Start: 04-30-2023 Gender identity Identifies as female gender (finding) [facility] History of Present illness Narrative 11-12-2024 Mary Alice LimonMARISA - 11/12/2024 2:30 PM EST Note Date & Type Note Facility 11-12-2024 History of Presen t illness Narrative Reason for Appointment: Patient ID: Edna Moon is a 49 y.o. female who presents for Pre-op Visit Patient presents today for Pre Op/Endometrial Biopsy appointment. Patient is scheduled to undergo Endometrial Ablation with Itzel on 12/05/[address] Sorensen at [facility]. MEDICATIONS Current Outpatient Medications Medication Instructions ibuprofen 800 mg, Oral, Every 6 hours PRN levothyroxine (SYNTHROID, LEVOXYL) 50 mcg, Oral, Every morning, Take on an empty stomach. liothyronine (CYTOMEL) 10 mcg, Oral, Daily meclizine (ANTIVERT) 25 mg, Oral, 3 times daily PRN triamcinolone (Kenalog) 0.1 % cream 1 Application, 2 times daily ALLERGIES No Known Allergies PROBLEMS Active Ambulatory Problems Diagnosis Date Noted No Active Ambulatory Problems Resolved Ambulatory Problems Diagnosis Date Noted No Resolved Ambulatory Problems Past Medical History: Diagnosis Date Arthritis Cellulitis of right foot History of miscarriage Hypothyroid (CMS/HCC) HISTORY PAST MEDICAL HISTORY SOCIAL HISTORY Past Medical History: Diagnosis Date Arthritis Cellulitis of right foot History of miscarriage Hypothyroid (CMS/HCC) Social History Tobacco Use Smoking status: Former Types: Cigarettes Smokeless tobacco: Not on file Tobacco comments: Last smoked >10 years Substance Use Topics Alcohol use: Yes Comment: caffeine: 1-2 cups per day Drug use: Not on file FAMILY HISTORY Family History Problem Relation Name Age of Onset Heart disease Mother Hypertension Mother Diabetes Mother Kidney failure Mother Stroke Mother Heart disease Father Diabetes Father Hypertension Father Miscarriages / Stillbirths Brother at childbirth , one miscarriage Diabetes Other Heart disease Other SURGICAL HISTORY Past Surgical History: Procedure Laterality Date SECTION, LOW TRANSVERSE 2000, 2004 DILATION AND CURETTAGE OF UTERUS 2004 REVIEW OF SYSTEMS Review of Systems: Review of Systems Constitutional: Negative. HENT: Negative. Eyes: Negative. Respiratory: Negative. Cardiovascular: Negative. Gastrointestinal: Negative. Genitourinary: Negative. Musculoskeletal: Negative. Skin: Negative. Neurological: Negative. All other systems reviewed and are negative. Hematological: Negative. Endocrine: Negative. Allergic/Immunologic: Negative. OBJECTIVE Objective: Physical Exam Constitutional: Appearance: Normal appearance. She is well-developed. Genitourinary: Vulva normal. Cardiovascular: Rate and Rhythm: Normal rate and regular rhythm. Pulmonary: Effort: Pulmonary effort is normal. Breath sounds: Normal breath sounds. Abdominal: General: Bowel sounds are normal. There is no distension. Palpations: Abdomen is soft. Tenderness: There is no abdominal tenderness. There is no guarding or rebound. Musculoskeletal: General: No swelling. Normal range of motion. Right lower leg: No edema. Left lower leg: No edema. Neurological: Mental Status: She is alert and oriented to person, place, and time. Skin: General: Skin is warm and dry. Psychiatric: Mood and Affect: Mood normal. Behavior: Behavior normal. Vitals and nursing note reviewed. Exam conducted with a laboratory chemist present. Vitals: Estimated body mass index is 53.35 kg/m as calculated from the following: Height as of 06/18/23: 5' 4 . Weight as of this encounter: 310 lb 12.8 oz. BP: 142/70 No LMP recorded. ASSESSMENT & PLAN ICD-10-CM 1. Pre-op examination Z01.818 POCT , urine manually resulted Tissue exam 2. Abnormal uterine bleeding (AUB) N93.9 POCT , urine manually resulted Tissue exam EMBX: Patient was placed in dorsal lithotomy position with feet in stirrups. A sterile speculum was placed into the vagina and the cervix was visualized. The cervix was grasped with a single tooth tenaculum. The endometrial pipette was placed through the cervix into the uterus, endometrial curettage was performed and sampling was obtained, endometrial curettings were placed in formalin, and single tooth tenaculum was removed. Excellent hemostasis was assured. All instruments were removed from vagina. Pre Op: Patient is doing well but has complaints of AUB. I have discussed conservative management vs. surgical management with the patient in detail and patient desires surgical management at this time. Patient will undergo Endometrial Ablation with Itzel on 12/05/24. Surgical consents were signed, mmc was reviewed, and patient is to proceed to [facility]. Follow Up: Patient is to follow up between 1-2 weeks post operative to assess proper healing and recovery from procedure. Documented by Mary Alice Limon LPN on behalf of: Wes Sorensen DO documented in this encounter [facility] History of Present illness Narrative 10-22-2024 Mary Alice Limon LPN - 10/22/2024 2:50 PM EST Note Date & Type Note Facility 10-22-2024 History of Presen t illness Narrative Reason for Appointment: Patient ID: Edna Moon is a 49 y.o. female who presents for Menstrual Problem Patient presents today for Acute Visit. MEDICATIONS Current Outpatient Medications Medication Instructions ibuprofen 800 mg, Oral, Every 6 hours PRN levothyroxine (SYNTHROID, LEVOXYL) 50 mcg, Oral, Every morning, Take on an empty stomach. liothyronine (CYTOMEL) 10 mcg, Oral, Daily meclizine (ANTIVERT) 25 mg, Oral, 3 times daily PRN triamcinolone (Kenalog) 0.1 % cream 1 Application, 2 times daily ALLERGIES No Known Allergies PROBLEMS Active Ambulatory Problems Diagnosis Date Noted No Active Ambulatory Problems Resolved Ambulatory Problems Diagnosis Date Noted No Resolved Ambulatory Problems Past Medical History: Diagnosis Date Arthritis Cellulitis of right foot History of miscarriage Hypothyroid (CMS/HCC) HISTORY PAST MEDICAL HISTORY SOCIAL HISTORY Past Medical History: Diagnosis Date Arthritis Cellulitis of right foot History of miscarriage Hypothyroid (CMS/HCC) Social History Tobacco Use Smoking status: Former Types: Cigarettes Smokeless tobacco: Not on file Tobacco comments: Last smoked >10 years Substance Use Topics Alcohol use: Yes Comment: caffeine: 1-2 cups per day Drug use: Not on file FAMILY HISTORY Family History Problem Relation Name Age of Onset Heart disease Mother Hypertension Mother Diabetes Mother Kidney failure Mother Stroke Mother Heart disease Father Diabetes Father Hypertension Father Miscarriages / Stillbirths Brother at childbirth , one miscarriage Diabetes Other Heart disease Other SURGICAL HISTORY Past Surgical History: Procedure Laterality Date SECTION, LOW TRANSVERSE 2000, 2004 DILATION AND CURETTAGE OF UTERUS 2004 REVIEW OF SYSTEMS Review of Systems: Review of Systems Genitourinary: Positive for menstrual problem. OBJECTIVE Objective: Physical Exam Constitutional: Appearance: Normal appearance. She is well-developed. Cardiovascular: Rate and Rhythm: Normal rate and regular rhythm. Pulmonary: Effort: Pulmonary effort is normal. Breath sounds: Normal breath sounds. Abdominal: General: Bowel sounds are normal. There is no distension. Palpations: Abdomen is soft. Tenderness: There is no abdominal tenderness. There is no guarding or rebound. Musculoskeletal: General: No swelling. Normal range of motion. Right lower leg: No edema. Left lower leg: No edema. Neurological: Mental Status: She is alert and oriented to person, place, and time. Skin: General: Skin is warm and dry. Psychiatric: Mood and Affect: Mood normal. Behavior: Behavior normal. Vitals and nursing note reviewed. Exam conducted with a laboratory chemist present. Vitals: Estimated body mass index is 53.18 kg/m as calculated from the following: Height as of 06/18/23: 5' 4 . Weight as of this encounter: 309 lb 12.8 oz. BP: No LMP recorded. ASSESSMENT & PLAN ICD-10-CM 1. Abnormal uterine bleeding (AUB) N93.9 Pt presents with aub and heavy cycles. Pt given labs and ultrasound orders to have obtained. Discussed all options with pt in detail. Pt desires surgical management, pt to be scheduled for endometrial ablation. Pt to return for preop/embx. Pt had vasectomy. Documented by Mary Alice Limon LPN on behalf of: Wes Sorensen DO documented in this encounter [facility] Evaluation note Note Date & Type Note Facility Evaluation note Diagnosis Abnormal uterine bleeding (AUB) Menorrhagia with regular cycle documented in this encounter [facility] Evaluation note Note Date & Type Note Facility Evaluation note Diagnosis Pre-op examination Abnormal uterine bleeding (AUB) documented in this encounter [facility] Chief Complaint and Reason for Visit Encounter Admit Date Chief Complaint Reason for V isit Departed Referred February 05, 2019 10:17am wellness Summary Purpose Family History No Family History Records FoundNo Family History Records FoundNo Family History Records Found Advance Directives No Advanced Directives Records FoundNo Advanced Directives Records FoundNo Advanced Directives Records Found Additional Source Comments INFORMATION SOURCE (unrecogn ized section and content) DATE CREATED AUTHOR 01/12/2023 [facility] DATE CREATED AUTHOR AUTHOR'S ORGANIZ ATION 11/14/2024 [facility] EPIC DATE CREATED AUTHOR AUTHOR'S ORGANIZ ATION 11/15/2024 [facility] Care Teams (unrecognized sec tion and content) Bureau Director Relationship Specialty Start Date End Date Mehran Jackson MD [address] [place] [address] PCP - General Family Medicine 04/30/23 Bureau Director Relationship Specialty Start Date End Date Mehran Jackson MD [address] [facility] [place] [address] PCP - General Family Medicine 04/30/23 Bureau Director Relationship Specialty Start Date End Date Mehran Jackson MD [address] [place] [facility] [address] PCP - General Family Medicine 04/30/23 Reason for Visit (unrecogniz ed section and content) Reason Comments Menstrual Problem Reason Comments Pre-op Visit FOR RECORDS PERTAINING TO PATIENTS WHO ARE [...] BE BASED ON THE PRIMARY CLINICAL RECORDS. [facility] provides no warranty or guarantee of the accuracy or completeness of information in this document.
== END 2024-11-12 12:11 | disposition home or self-care (01) ==
LOC: LAB 12:10
PROVIDERS: PCP Family Medicine; Visit Provider Obstetrics & Gynecology
DX: N93.9 Abnormal uterine and vaginal bleeding, unspecified (principal)
CPT/HCPCS: 88305

== ENCOUNTER 2024-11-22 10:39 | Outpatient (OUT) | payer OTHER, SELFPAY ==
--- NOTE | 2024-11-22 | US_ITS ---
The [address] [address] Patient Name: SARA GIVENS MRN: [id number] date: 1975 Sex: F Assigned Patient Location: US Current Patient Location: Accession/Order Number: [id number] Exam Date: 11/22/2024 13:36 Report Date: 11/22/2024 13:42 At the request of: WES COLON DO Procedure: US pelvis w/ transvaginal TRANSABDOMINAL AND TRANSVAGINAL PELVIC ULTRASOUND HISTORY: Abnormal uterine bleeding FINDINGS: The uterus measures 7.3 x 4.7 x 6.3 cm. Uterus is anteverted No discrete lesion of the uterus identified. There is limited assessment of the upper portion of the uterus with heterogeneous irregular border noted. There is vascular measuring up to 3.0 cm. The endometrium has a total combined thickness of 15mm. The RIGHT ovary measures 1.9 x 1.9 x 1.4 cm. Resistive index 0.44. LEFT ovary measures 4.7 x 4.0 x 2.8 cm. Resistive index of the left ovary 0.6. Left ovary contains an anechoic cyst measuring up to 3.5 cm. Bilateral ovarian blood flow identified. No free fluid identified. There is no adnexal mass identified. US/US pelvis w/ transvaginal IMPRESSION: Body habitus limits exam. Anteverted uterus. Heterogeneous parenchyma inferior portion of the uterus. Vascular region measures up to 3.0 cm. Nonspecific. 15 mm endometrial complex intact. Unremarkable ovaries. Benign anechoic 3.5 cm left ovarian cyst. No adnexal mass. No free fluid. Impression dictated by: Nolan Hodgson M.D.11/22/2024 1:42 PM Dictation Location[facility] Electronically authenticated by: [id number] Date: 11/22/2024 13:42
--- OUTSIDE RECORDS SUMMARY | 2024-11-22 10:41 | XMS_ITS | CCD ---
Author Organization [facility] Care Team Providers Care Canal Structure Operator Name Role Phone NON, STAFF Primary Care [...] Unavailable LUIS ANTONIO BAEZA Consulting Unavailable Mehran Cochran MD Primary Care Provider WES SORENSEN Attending Unavailable WES SORENSEN Attending Unavailable Wes Sorensen Attending Unavailable Wes Sorensen Admitting Unavailable Wes Sorensen DO Attending Provider [phone] Medications Current Medications Medication Drug Class(es) Dates [...] tablet (3 sources) Progestin Start: 3 End: take 1 tablet by mouth in the [...] Test Name Value Interpretation Reference Range Facility Pathology study report docum entOrdered By: Fidel Rincon on 11-17-2024 Pathology study [facility] Other HCG ( test) Ql (U)o n 11-12-2024 Interpretation and review of laboratory results Normal [facility] Preg Test, Ur Negative Negative [facility] Chaitanya 11-12-2024 L Specimen: [id number] Received: 11/14/24 Status: RICO Alarcon Num: [id number] Spec Type: Surgical Subm Dr: Wes Sorensen Tissues: A Endometrium - Biopsy (ENDOMETRIAL BX) Procedures: HE/2, Gross/Micro L4 Age/ Patient Sex Location Account Attending Physician Edna Givens 49/F LABELL [id number] Wes Sorensen SPEC NUM: [id number] RECD: 11/14/24 STATUS: RICO ALARCON NUM: [id number] SANDIP: 11/12/24 DR: Wes Sorensen ENTERED: 11/14/[address]: Chris,Lab SPEC TYPE: Surgical DEPT: NARINDER MCKINNEY ORDERED: HE/2, Gross/Micro L4 ORDERED: HE/2, Gross/Micro L4 Pathological Diagnosis Endometrium, biopsy: - Late secretory phase endometrium. - Fragments of benign endocervical mucosa. - No evidence of hyperplasia or malignancy identified. Clinical Information Abnormal uterine bleeding Gross Description Received in formalin labeled with the patients name, date of , and Endometrium BX are quevedo-pink to red-brown, delicate tissue fragments, 1.5 x 1 x 0.2 cm in aggregate. The specimen is filtered and entirely submitted in a single cassette. (1, ns, [id number]) Microscopic Description Microscopic examination is performed. CPT Codes 71802 Specimen: [id number] Received: 11/14/24 Status: RICO Alarcon Num: [id number] Spec Type: Surgical Subm Dr: Wes Sorensen Tissues: A Endometrium - Biopsy (ENDOMETRIAL BX) Procedures: JUDITH/Ramon, Dior/Noe L4 Patient: Edna Givens [id number] (Continued) Signed (signatur e on file) Fidel Rincon MD 11/17/24 1131 Normal [facility] CBC AUTO DIFFon 01-12-2023 BASO # 0.0 103/ul Normal 0.0-0.1 [facility] Comment on above: Performed By: #### C BC #### [facility] [address] [place] [address] Dr. Teja Macias Basophils/100 WBC (Bld) 0.4 % Normal 0.2-2.[address] [facility] Comment on above: Performed By: #### C BC #### [facility] [address] [place] [address] Dr. Teja Macais EO # 0.5 103/ul Normal 0.0-0.[address] [facility] Comment on above: Performed By: #### C BC #### [facility] [address] [place] [address] Dr. Teja Macias Eosinophils/100 WBC (Bld) 5.6 % Normal 0.9-7.0 [facility] Comment on above: Performed By: #### C BC #### [facility] [address] [place] [address] Dr. Teja Macias Erythrocyte distribution width (RBC) [Ratio] 14.0 % Normal 11.0-15.0 [facility] Comment on above: Performed By: #### C BC #### [facility] [address] [place] [address] Dr. Teja Macias Hematocrit (Bld) [Volume fraction] 41.2 % Normal 36.0-48.0 [facility] Comment on above: Performed By: #### C BC #### [facility] [address] [place] [address] Dr. Teja Macias Hemoglobin (Bld) [Mass/Vol] 13.1 g/dL Normal 12.0-16.0 [facility] Comment on above: Performed By: #### C BC #### [facility] [address] [place] [address] Dr. Teja Macias IG # 0.04 10e3/ul Critically high 0.00-0.03 [facility] Comment on above: Performed By: #### C BC #### [facility] [address] [place] [address] Dr. Teja Macias IG % 0.5 % Normal 0.0-0.5 [facility] Comment on above: Performed By: #### C BC #### [facility] [address] [place] [address] Dr. Teja Macias LYMPH # 2.5 103/ul Normal 1.2-3.8 [facility] Comment on above: Performed By: #### C BC #### [facility] [address] [place] [address] Dr. Teja Macias Lymphocytes/100 WBC (Bld) 28.8 % Normal 20.5-60.0 [facility] Comment on above: Performed By: #### C BC #### [facility] [address] [place] [address] Dr. Teja Macias MANUAL DIFF REQ NO Normal [facility] Comment on above: Performed By: #### C BC #### [facility] [address] [place] [address] Dr. Teja Macias MCH (RBC) [Entitic mass] 28.1 pg Normal 26.7-34.0 [facility] Comment on above: Performed By: #### C BC #### [facility] [address] [place] [address] Dr. Teja Macias MCHC (RBC) [Mass/Vol] 31.8 g/dL Normal 29.9-35.2 [facility] Comment on above: Performed By: #### C BC #### [facility] [address] [place] [address] Dr. Teja Macias MCV (RBC) [Entitic vol] 88.4 fL Normal 81.0-99.0 [facility] Comment on above: Performed By: #### C BC #### [facility] [address] [place] [address] Dr. Teja Macias MONO # 0.5 103/ul Normal 0.3-0.8 [facility] Comment on above: Performed By: #### C BC #### [facility] [address] [place] [address] Dr. Teja Macias Monocytes/100 WBC (Bld) 6.1 % Normal 1.7-12.0 [facility] Comment on above: Performed By: #### C BC #### [facility] [address] [place] [address] Dr. Teja Macias NEUT # 5.0 103/ul Normal 1.4-6.[address] [facility] Comment on above: Performed By: #### C BC #### [facility] [address] [place] [address] Dr. Teja Macias Neutrophils/100 WBC (Bld) 58.6 % Normal 43.0-75.0 [facility] Comment on above: Performed By: #### C BC #### [facility] [id number] Teja Macias Platelet mean volume (Bld) [Entitic vol] 10.2 fL Normal 9.5-13.5 [facility] Comment on above: Performed By: #### C BC #### [facility] [address] [address] [address] Teja Macias PLT 299 103/ul Normal 150-[address] [facility] Comment on above: Performed By: #### C BC #### [facility] [address] [address] [address] Teja Macias RBC 4.66 106/ul Normal 4.20-5.40 [facility] Comment on above: Performed By: #### C BC #### [facility] [address] [address] [address] Teja Macias WBC 8.5 103/ul Normal 4.0-11.0 [facility] Comment on above: Performed By: #### C BC #### [facility] [address] [address] [address] Teja Macias LIPID PROFILEon 01-12-2023 CHOL-HDL RATIO NORM SEE BELOW Normal [facility] Comment on above: Result Comment: 3.3 - 4.4 LOW RISK 4.4 - 7.1 AVERAGE RISK 7.1 - 11.0 MODERATE RISK >11.0 HIGH RISK Performed By: #### T 4, CMP, TSH, LIPID ####[facility] [address] [id number]. Teja Macias Cholesterol [Mass/Vol] 171 mg/dL Normal <=[address] [facility] Comment on above: Performed By: #### T 4, CMP, TSH, LIPID ####[facility] [address] [place], [place] [address]ZiDr. Teja Macias Cholesterol in HDL [Mass/Vol] 42 mg/dL Normal 40-60 [facility] Comment on above: Performed By: #### T 4, CMP, TSH, LIPID ####[facility] [address] [id number]. Teja Macias Cholesterol in LDL [Mass/Vol] 106.8 mg/dL Normal [facility] Comment on above: Performed By: #### T 4, CMP, TSH, LIPID ####[facility] [address] [address]Dr. Teja Macias Cholesterol.total/Cho lesterol in HDL [Mass ratio] 4.1 {ratio} Normal [facility] Comment on above: Performed By: #### T 4, CMP, TSH, LIPID ####[facility] [address] [id number]. Teja Macias HDL NORMAL > or = 60 mg/dl - LOW CARDIOVASCULAR RISK <40 mg/dl - HIGH CARDIOVASCULAR RISK Normal [facility] Comment on above: Performed By: #### T 4, CMP, TSH, LIPID ####[facility] [address] [address]Dr. Teja Macias LDL CALC NORMAL SEE BELOW Normal [facility] Comment on above: Result Comment: <100 mg/dl OPTIMAL 100 - 129 mg/dl NEAR OR ABOVE OPTIMAL 130 - 159 mg/dl BORDERLINE HIGH 160 - 189 mg/dl HIGH >190 mg/dl VERY HIGH Performed By: #### T 4, CMP, TSH, LIPID ####[facility] [address] [address]Dr. Teja Macias Triglyceride [Mass/Vol] 111 mg/dL Normal <=150 [facility] Comment on above: Performed By: #### T 4, CMP, TSH, LIPID ####[facility] [address] [id number]. Teja Macias VLDL CALC 22.2 mg/dL Normal [facility] Comment on above: Performed By: #### T 4, CMP, TSH, LIPID ####[facility] [address] [id number]. Teja Macias PROF 14(COMP METB)on 023 Albumin [Mass/Vol] 3.3 g/dL Critically low 3.4-5.[address] [facility] Comment on above: Performed By: #### T 4, CMP, TSH, LIPID ####[facility] [address] [address]Dr. Teja Macias Albumin/Globulin [Mass ratio] 0.6 {ratio} Normal [facility] Comment on above: Performed By: #### T 4, CMP, TSH, LIPID ####[facility] [address] [address]Dr. Teja Macias ALP [Catalytic activity/Vol] 79 U/L Normal 46-116 [facility] Comment on above: Performed By: #### T 4, CMP, TSH, LIPID ####[facility] [address] [address]Dr. Teja Macias ALT [Catalytic activity/Vol] 29 U/L Normal 14-59 [facility] Comment on above: Performed By: #### T 4, CMP, TSH, LIPID ####[facility] [address] [address]Dr. Teja Macias Anion gap [Moles/Vol] 10.2 mmol/L Normal [facility] Comment on above: Performed By: #### T 4, CMP, TSH, LIPID ####[facility] [address] [place], [place] [address]Dr. Lindalynn Macias AST [Catalytic activity/Vol] 23 U/L Normal 15-37 [facility] Comment on above: Performed By: #### T 4, CMP, TSH, LIPID ####[facility] [address] [address]Dr. Lindalynn Macias Bilirubin [Mass/Vol] 0.4 mg/dL Normal 0.2-1.0 [facility] Comment on above: Performed By: #### T 4, CMP, TSH, LIPID ####[facility] [address] [address]Dr. Lindalynn Macias Calcium [Mass/Vol] 8.9 mg/dL Normal 8.5-10.1 [facility] Comment on above: Performed By: #### T 4, CMP, TSH, LIPID ####[facility] [address] [address]Dr. Teja Macias Chloride [Moles/Vol] 104 mmol/L Normal 98-107 [facility] Comment on above: Performed By: #### T 4, CMP, TSH, LIPID ####[facility] [address] [id number]. Teja Macias CO2 [Moles/Vol] 28.0 mmol/L Normal 21.0-32.0 [facility] Comment on above: Performed By: #### T 4, CMP, TSH, LIPID ####[facility] [address] [phone]. Teja Macias Creatinine [Mass/Vol] 0.67 mg/dL Normal 0.55-1.02 [facility] Comment on above: Performed By: #### T 4, CMP, TSH, LIPID ####[facility] [address] [address]Dr. Teja Macias EGFR-AF CHADIAN >60 Normal >=60 [facility] Comment on above: Performed By: #### T 4, CMP, TSH, LIPID ####[facility] [address] [place], [place] [address]Dr. Teja Macias EGFR-NON AF CHADIAN >60 Normal >=60 [facility] Comment on above: Performed By: #### T 4, CMP, TSH, LIPID ####[facility] [address] [place], [place] [address]Dr. Teja Macias Globulin (S) [Mass/Vol] 5.2 g/dL Normal [facility] Comment on above: Performed By: #### T 4, CMP, TSH, LIPID ####[facility] [address] [address]Dr. Teja Macias Glucose [Mass/Vol] 97 mg/dL Normal 74-106 [facility] Comment on above: Performed By: #### T 4, CMP, TSH, LIPID ####[facility] [address] [address]Dr. Teja Macias Potassium [Moles/Vol] 4.2 mmol/L Normal 3.5-5.1 [facility] Comment on above: Performed By: #### T 4, CMP, TSH, LIPID ####[facility] [address] [address]Dr. Yilynn Macias Protein [Mass/Vol] 8.5 g/dL Critically high 6.4-8.2 [facility] Comment on above: Performed By: #### T 4, CMP, TSH, LIPID ####[facility] [address] [address]Dr. Teja Macias Sodium [Moles/Vol] 138 mmol/L Normal 136-145 [facility] Comment on above: Performed By: #### T 4, CMP, TSH, LIPID ####[facility] [address] [address]Dr. Teja Macias Urea nitrogen [Mass/Vol] 12.0 mg/dL Normal 7.0-18.0 [facility] Comment on above: Performed By: #### T 4, CMP, TSH, LIPID ####[facility] [address] [address]Dr. Teja Macias Urea nitrogen/Creatinine [Mass ratio] 17.9 mg/mg Normal [facility] Comment on above: Performed By: #### T 4, CMP, TSH, LIPID ####[facility] [address] [phone]. Teja Macias T4on 01-12-2023 T4 [Mass/Vol] 5.00 ug/dL Normal 4.80-13.90 [facility] Comment on above: Performed By: #### T 4, CMP, TSH, LIPID ####[facility] [address] [address]Dr. Teja Macias TSHon 01-12-2023 TSH 2.338 uIU/mL Normal 0.358-3.740 [facility] Comment on above: Performed By: #### T 4, CMP, TSH, LIPID ####[facility] [address] [address]Dr. Teja Macias US KIM DOP LEG RTon [...] ANU RICHMOND Date: 2022-10-31 08:51 Normal [facility] MRI KNEE RT WO CONon 023 MRI [...] ANU PABON Date: 2022-10-02 21:54 Normal [facility] XR ANKLE LT MIN 3 Von 2022 [...] ANTONIO BAEZA Date: 2022-10-02 17:50 Normal [address] [facility] XR KNEE RT 4V or >on 023 [...] ANTONIO BAEZA Date: 2022-10-02 17:52 Normal [address] [facility] CBC AUTO DIFFon 01-23-2022 BASO # 0.0 103/ul Normal 0.0-0.1 [facility] Comment on above: Performed By: #### C BC ####[facility] [address] [place], [place] [address]WyChristiano Macias Basophils/100 WBC (Bld) 0.3 % Normal 0.2-2.[address] [facility] Comment on above: Performed By: #### C BC ####[facility] [address] [place], [place] [address]GjChristiano Macias EO # 0.5 103/ul Normal 0.0-0.[address] [facility] Comment on above: Performed By: #### C BC ####[facility] [address] [address]Dr. Teja Macias Eosinophils/100 WBC (Bld) 5.1 % Normal 0.9-7.0 [facility] Comment on above: Performed By: #### C BC ####[facility] [address] [place], [place] [address]Dr. Teja Macias Erythrocyte distribution width (RBC) [Ratio] 14.6 % Normal 11.0-15.0 [facility] Comment on above: Performed By: #### C BC ####[facility] [address] [place], [place] [address]Dr. Teja Macias Hematocrit (Bld) [Volume fraction] 38.7 % Normal 36.0-48.0 [facility] Comment on above: Performed By: #### C BC ####[facility] [address] [place], [place] [address]Dr. Teja Macias Hemoglobin (Bld) [Mass/Vol] 12.2 g/dL Normal 12.0-16.[address] [facility] Comment on above: Performed By: #### C BC ####[facility] [address] [place], [place] [address]Dr. Teja Macias IG # 0.02 10e3/ul Normal 0.00-0.[address] [facility] Comment on above: Performed By: #### C BC ####[facility] [address] [place], [place] [address]Dr. Teja Macias IG % 0.2 % Normal 0.0-0.[address] [facility] Comment on above: Performed By: #### C BC ####[facility] [address] [place], [place] [address]DrChristiano Teja Macias LYMPH # 2.1 103/ul Normal 1.2-3.[address] [facility] Comment on above: Performed By: #### C BC ####[facility] [address] [place], [place] [address]Dr. Teja Macias Lymphocytes/100 WBC (Bld) 22.4 % Normal 20.5-60.0 [facility] Comment on above: Performed By: #### C BC ####[facility] [address] [address]Dr. Teja Macias MANUAL DIFF REQ NO Normal [facility] Comment on above: Performed By: #### C BC ####[facility] [address] [phone]. Teja Macias MCH (RBC) [Entitic mass] 27.5 pg Normal 26.7-34.0 [facility] Comment on above: Performed By: #### C BC ####[facility] [address] [address]Dr. Teja Macias MCHC (RBC) [Mass/Vol] 31.5 g/dL Normal 29.9-35.[address] [facility] Comment on above: Performed By: #### C BC ####[facility] [address] [place], [place] [address]Dr. Teja Macias MCV (RBC) [Entitic vol] 87.2 fL Normal 81.0-99.0 [facility] Comment on above: Performed By: #### C BC ####[facility] [address] [place], [place] [address]Dr. Teja Macias MONO # 0.4 103/ul Normal 0.3-0.[address] [facility] Comment on above: Performed By: #### C BC ####[facility] [address] [place], [place] [address]Dr. Teja Macias Monocytes/100 WBC (Bld) 4.6 % Normal 1.7-12.[address] [facility] Comment on above: Performed By: #### C BC ####[facility] [address] [place], [place] [address]DrChristiano Macias NEUT # 6.3 103/ul Normal 1.4-6.[address] [facility] Comment on above: Performed By: #### C BC ####[facility] [address] [place], [place] [id number] Macias Neutrophils/100 WBC (Bld) 67.4 % Normal 43.0-75.0 [facility] Comment on above: Performed By: #### C BC ####[facility] [address] [address]Dr. Teja Macias Platelet mean volume (Bld) [Entitic vol] 10.3 fL Normal 9.5-13.5 [facility] Comment on above: Performed By: #### C BC ####[facility] [address] [place] [id number]. Teja Macias PLT 278 103/ul Normal 150-[address] [facility] Comment on above: Performed By: #### C BC ####[facility] [address] [place] [id number] Macias RBC 4.44 106/ul Normal 4.20-5.40 [facility] Comment on above: Performed By: #### C BC ####[facility] [address] [address]Dr. Teja Macias WBC 9.3 103/ul Normal 4.0-11.0 [facility] Comment on above: Performed By: #### C BC ####[facility] [address] [place] [phone]. Teja Macias FREE T3on 01-23-2022 FREE T3 1.74 pg/mlL Critically low 2.18-3.98 [facility] Comment on above: Performed By: #### T 4, TSH, CMP, LIPID, FT3 #### [facility] [address] [place], [place] [address] Dr. Teja Macias GLYCOHEMOGLOBIN A1Con 2021 ADA RECOMMENDATION SEE BELOW Normal [facility] Comment on above: Result Comment: ADA RECOMMENDED LIMIT 4.0 - 6.0 ADA THERAPEUTIC TARGET < 7.0 ACTION SUGGESTED > 7.0 Performed By: #### A 1C ####[facility] [address] [address]Dr. Teja Macias Glucose [Mass/Vol] 114 mg/dL Normal [facility] Comment on above: Performed By: #### A 1C ####[facility] [address] [place] [address]Dr. Teja Macias HbA1c (Bld) [Mass fraction] 5.6 % Normal 4.5-6.2 [facility] Comment on above: Performed By: #### A 1C ####[facility] [address] [address]Dr. Teja Macias LIPID PROFILEon 01-23-2022 CHOL-HDL RATIO NORM SEE BELOW Normal [facility] Comment on above: Result Comment: 3.3 - 4.4 LOW RISK 4.4 - 7.1 AVERAGE RISK 7.1 - 11.0 MODERATE RISK >11.0 HIGH RISK Performed By: #### T 4, TSH, CMP, LIPID, FT3 #### [facility] [address] [address] [address] Teja Macias Cholesterol [Mass/Vol] 155 mg/dL Normal <=200 [facility] Comment on above: Performed By: #### T 4, TSH, CMP, LIPID, FT3 #### [facility] [address] [address] [address] Teja Macias Cholesterol in HDL [Mass/Vol] 36 mg/dL Critically low 40-60 [facility] Comment on above: Performed By: #### T 4, TSH, CMP, LIPID, FT3 #### [facility] [address] [address] [address] Teja Macias Cholesterol in LDL [Mass/Vol] 93.6 mg/dL Normal [facility] Comment on above: Performed By: #### T 4, TSH, CMP, LIPID, FT3 #### [facility] [address] [address] [address] Teja Macias Cholesterol.total/Cho lesterol in HDL [Mass ratio] 4.3 {ratio} Normal [facility] Comment on above: Performed By: #### T 4, TSH, CMP, LIPID, FT3 #### [facility] [address] [address] [address] Teja Macias HDL NORMAL > or = 60 mg/dl - LOW CARDIOVASCULAR RISK <40 mg/dl - HIGH CARDIOVASCULAR RISK Normal [facility] Comment on above: Performed By: #### T 4, TSH, CMP, LIPID, FT3 #### [facility] [address] [address] [address] Teja Macias LDL CALC NORMAL SEE BELOW Normal [facility] Comment on above: Result Comment: <100 mg/dl OPTIMAL 100 - 129 mg/dl NEAR OR ABOVE OPTIMAL 130 - 159 mg/dl BORDERLINE HIGH 160 - 189 mg/dl HIGH >190 mg/dl VERY HIGH Performed By: #### T 4, TSH, CMP, LIPID, FT3 #### [facility] [address] [address] [address] Teja Macias Triglyceride [Mass/Vol] 127 mg/dL Normal <=150 [facility] Comment on above: Performed By: #### T 4, TSH, CMP, LIPID, FT3 #### [facility] [address] [address] [address] Teja Macias VLDL CALC 25.4 mg/dL Normal [facility] Comment on above: Performed By: #### T 4, TSH, CMP, LIPID, FT3 #### [facility] [address] [place] [address] Dr. Teja Macias PROF 14(COMP METB)on 022 Albumin [Mass/Vol] 3.0 g/dL Critically low 3.4-5.0 Th [facility] Comment on above: Performed By: #### T 4, TSH, CMP, LIPID, FT3 #### [facility] [address] [place] [address] Dr. Teja Macias Albumin/Globulin [Mass ratio] 0.7 {ratio} Normal [facility] Comment on above: Performed By: #### T 4, TSH, CMP, LIPID, FT3 #### [facility] [address] [place] [address] Dr. Teja Macias ALP [Catalytic activity/Vol] 71 U/L Normal 46-116 [facility] Comment on above: Performed By: #### T 4, TSH, CMP, LIPID, FT3 #### [facility] [address] [place] [address] Dr. Teja Macias ALT [Catalytic activity/Vol] 19 U/L Normal 14-59 [facility] Comment on above: Performed By: #### T 4, TSH, CMP, LIPID, FT3 #### [facility] [address] [address] [address] Teja Macias Anion gap [Moles/Vol] 15.5 mmol/L Normal Th e [facility] Comment on above: Performed By: #### T 4, TSH, CMP, LIPID, FT3 #### [facility] [address] [address] [address] Teja Macias AST [Catalytic activity/Vol] 16 U/L Normal 15-37 [facility] Comment on above: Performed By: #### T 4, TSH, CMP, LIPID, FT3 #### [facility] [address] [place] [address] Dr. Teja Macias Bilirubin [Mass/Vol] 0.4 mg/dL Normal 0.2-1.0 [facility] Comment on above: Performed By: #### T 4, TSH, CMP, LIPID, FT3 #### [facility] [address] [address] [address] Teja Macias Calcium [Mass/Vol] 8.7 mg/dL Normal 8.5-10.1 [facility] Comment on above: Performed By: #### T 4, TSH, CMP, LIPID, FT3 #### [facility] [address] [place] [address] Dr. Teja Macias Chloride [Moles/Vol] 103 mmol/L Normal 98-107 [facility] Comment on above: Performed By: #### T 4, TSH, CMP, LIPID, FT3 #### [facility] [address] [place] [address] Dr. Teja Macias CO2 [Moles/Vol] 23.3 mmol/L Normal 21.0-32.0 [facility] Comment on above: Performed By: #### T 4, TSH, CMP, LIPID, FT3 #### [facility] [address] [place] [address] Dr. Teja Macias Creatinine [Mass/Vol] 0.65 mg/dL Normal 0.55-1.02 [facility] Comment on above: Performed By: #### T 4, TSH, CMP, LIPID, FT3 #### [facility] [address] [address] [address] Teja Macias EGFR-AF CHADIAN >60 Normal >=60 [facility] Comment on above: Performed By: #### T 4, TSH, CMP, LIPID, FT3 #### [facility] [address] [address] [address] Teja Macias EGFR-NON AF CHADIAN >60 Normal >=60 [facility] Comment on above: Performed By: #### T 4, TSH, CMP, LIPID, FT3 #### [facility] [address] [address] [address] Teja Macias Globulin (S) [Mass/Vol] 4.6 g/dL Normal [facility] Comment on above: Performed By: #### T 4, TSH, CMP, LIPID, FT3 #### [facility] [address] [place] [address] Dr. Teja Macias Glucose [Mass/Vol] 110 mg/dL Critically high 74-106 [facility] Comment on above: Performed By: #### T 4, TSH, CMP, LIPID, FT3 #### [facility] [address] [place] [address] Dr. Teja Macias Potassium [Moles/Vol] 3.8 mmol/L Normal 3.5-5.1 [facility] Comment on above: Performed By: #### T 4, TSH, CMP, LIPID, FT3 #### [facility] [address] [address] [address] Teja Macias Protein [Mass/Vol] 7.6 g/dL Normal 6.4-8.2 [facility] Comment on above: Performed By: #### T 4, TSH, CMP, LIPID, FT3 #### [facility] [address] [place] [address] Dr. Teja Macias Sodium [Moles/Vol] 138 mmol/L Normal 136-145 [facility] Comment on above: Performed By: #### T 4, TSH, CMP, LIPID, FT3 #### [facility] [address] [address] [address] Teja Macias Urea nitrogen [Mass/Vol] 15.0 mg/dL Normal 7.0-18.[address] [facility] Comment on above: Performed By: #### T 4, TSH, CMP, LIPID, FT3 #### [facility] [address] [address] [address] Teja Macias Urea nitrogen/Creatinine [Mass ratio] 23.1 mg/mg Normal [facility] Comment on above: Performed By: #### T 4, TSH, CMP, LIPID, FT3 #### [facility] [address] [address] [address] Teja Macias T4on 01-23-2022 T4 [Mass/Vol] 6.20 ug/dL Normal 4.80-13.90 [facility] Comment on above: Performed By: #### T 4, TSH, CMP, LIPID, FT3 ####[facility] [address] [address] Teja Macias TSHon 01-23-2022 TSH 3.271 uIU/mL Normal 0.358-3.740 [facility] Comment on above: Performed By: #### T 4, TSH, CMP, LIPID, FT3 #### [facility] [address] [address] [address] Teja Macias TSH RANGE SEE BELOW Normal [facility] Comment on above: Result Comment: <0.3 4 UIU/ml HYPERTHYROID 0.34-5.60 UIU/ml EUTHYROID >5.60 UIU/ml HYPOTHYROID Performed By: #### T 4, TSH, CMP, LIPID, FT3 #### [facility] [address] [address] [address] Teja Macias VITAMIN D 25 OHon 01-23-2022 VIT D 25-OH 7.6 ng/mL Normal [facility] Comment on above: Performed By: #### V ITAD #### [facility] [address] [address] [address] Teja Macias VIT D RANGES SEE BELOW Normal [facility] Comment on above: Result Comment: <20 ng/mL Vit D deficient 20 - <30 ng/mL Vit D insufficient 30 - 100 ng/mL Vit D sufficient >100 ng/mL Potential Toxicity Performed By: #### V ITAD #### [facility] [address] [place] [address] Dr. Teja Macias Laboratory Studieson 019 Albumin mass conc (Body fld) 3.6 gm/dL 3.2-5.5 [facility] Albumin/Globulin mass ratio 0.9 {ratio} [facility] ALP enzyme act/vol 80 U/L 32-92 [facility] ALT No additional P-5'-P enzyme act/vol 34 U/L 10-60 [facility] AST enzyme act/vol 29 U/L 10-42 [facility] Basophils #/vol (Bld) 0.0 10*3/uL 0.0-0.2 [facility] Basophils/100 WBC (Bld) 0.5 % [facility] Bilirubin mass conc 0.5 mg/dL 0.3-1.2 [facility] Calcium mass conc 8.9 mg/dL 8.2-10.2 [facility] Chloride molar conc 104 mmol/L 95-114 [facility] Cholesterol in HDL mass conc 34 mg/dL Low 35-85 [facility] Comment on above: HDL CHOL ATP-III CLA SSIFICATION Cardiovascular Risk HDL > or equal to 60 mg/dL LOW HDL < 40 mg/dL HIGH Cholesterol in LDL mass conc 105 mg/dL High 0-100 [facility] Comment on above: LDL ATP III CLASSIFI CATION LDL less than 100 mg/dL Optimal LDL 100-129 mg/dL Near or above optimal LDL 130-159 mg/dL Borderline high LDL 160-189 mg/dL High LDL greater than 189 mg/dL Very high Cholesterol in VLDL mass conc 27 mg/dL [facility] Cholesterol mass conc 166 mg/dL 140-200 [facility] Comment on above: Chol less than 200 m g/dl low risk Chol 201-239 mg/dl borderline risk Chol 240 mg/dl and greater high risk Cholesterol.total/Cho lesterol in HDL mass ratio 4.9 {ratio} [facility] CO2 molar conc 25.4 mmol/L 22.0-30.0 [facility] Creatinine mass conc 0.75 mg/dL 0.44-1.03 [facility] Eosinophils #/vol (Bld) 0.5 10*3/uL High 0.0-0.45 [facility] Eosinophils/100 WBC (Bld) 5.0 % [facility] Erythrocyte distribution width Ratio (RBC) 14.7 % 11.9-15.3 [facility] GFR/1.73 sq M predicted among blacks MDRD vol rate/area (S/P/Bld) mL/min/{1.73_m2} [facility] Comment on above: GFR estimated refere nce range: According to KDOQI guidelines, <60 ml/min/1.73m2 is sufficient to diagnose a patient with chronic kidney disease. GFR/1.73 sq M predicted among non-blacks MDRD vol rate/area (S/P/Bld) mL/min/{1.73_m2} [facility] Globulin mass conc (S) 3.8 g/dL [facility] Glucose mass conc 104 mg/dL High 70-100 [facility] Comment on above: ADA recommended refe rence range Random Glucose Reference Range is dependent on time and content of last meal. Glucose of more than 200 mg/dL in a nonstressed, ambulatory subject supports the diagnosis of Diabetes Mellitus. Hematocrit Volume Fraction (Bld) 39.2 % 34.0-46.4 [facility] Hemoglobin mass conc (Bld) 13.2 g/dL 11.8-15.4 [facility] Lymphocytes #/vol (Bld) 2.6 10*3/uL 1.00-4.8 [facility] Lymphocytes/100 WBC (Bld) 28.2 % [facility] MCH Entitic mass (RBC) 28.5 pg 24.7-34.3 [facility] MCHC mass conc (RBC) 33.6 g/dL 32.0-35.0 [facility] MCV Entitic volume (RBC) 84.8 fL 80-100 [facility] Monocytes #/vol (Bld) 0.5 10*3/uL 0.0-0.8 [facility] Monocytes/100 WBC (Bld) 5.7 % [facility] Neutrophils #/vol (Bld) 5.5 10*3/uL 1.8-7.7 [facility] Neutrophils/100 WBC (Bld) 60.6 % [facility] Nucleated RBC/100 WBC Ratio (Bld) 0.1 % 0-0.5 [facility] Pharmacy Creatinine Clearance (Chem N/A [facility] Platelet mean volume Entitic volume (Bld) 8.8 fL 6.3-10.7 [facility] Platelets #/vol (Bld) 296 10*3/uL 150-450 [facility] Potassium molar conc 4.1 mmol/L 3.5-5.1 [facility] Protein mass conc 7.4 g/dL 6.1-7.9 [facility] RBC #/vol (Bld) 4.62 10*6/uL 3.60-5.00 [facility] Sodium molar conc 137 mmol/L 136-146 [facility] T4 mass conc 7.54 ug/dL 5.39-11.82 [facility] Triglyceride mass conc 137 mg/dL 35-149 [facility] Comment on above: TRIG ATP III CLASSIF ICATION TRIG less than 150 mg/dL Normal TRIG 150-199 mg/dL Borderline high TRIG 200-500 mg/dL High TRIG greater than 500 mg/dL Very high Standard traceable to the Center for Disease Conrtrol and Prevention (CDC) test method. Urea nitrogen mass conc 10 mg/dL 9-23 [facility] WBC #/vol (Bld) 9.1 10*3/uL 3.8-11.6 [facility] Vital Signs Date Time Vital Sign Value Performing Clinician Facility 11-12-2024 15:09-0500 Body mass index (BMI) [Ratio] 53.35 kg/m2 [facility] Edu DO Work Phone: [facility] 11-12-2024 15:09-0500 Body weight 140.98 kg [facility] Work Phone: [facility] 11-12-2024 15:09-0500 Diastolic blood pressure 70 mm[Hg] Wes Linoo DO Work Phone: [facility] 11-12-2024 15:09-0500 Systolic blood pressure 142 mm[Hg] Wes Linoo DO Work Phone: [facility] 10-22-2024 15:22-0500 Body mass index (BMI) [Ratio] 53.18 kg/m2 Wes Linoo DO Work Phone: [facility] 10-22-2024 15:22-0500 Body weight 140.52 kg Wes Sorensen DO Work Phone: [facility] NEGATED: Highlighted row BMI (Body Mass Index) STAFF [facility] NEGATED: Highlighted row Body Temperature STAFF [facility] NEGATED: Highlighted row BP Diastolic STAFF [facility] NEGATED: Highlighted row BP Systolic STAFF [facility] NEGATED: Highlighted row Height STAFF [facility] NEGATED: Highlighted row Pulse (Heart Rate) STAFF [facility] NEGATED: Highlighted row Pulse Oximetry STAFF [facility] NEGATED: Highlighted row Respiratory Rate STAFF [facility] NEGATED: Highlighted row Weight STAFF [facility] Encounters Encounter Date Encounter Type Care Provider Facility Start: 11-12-2024 End: 11-12-2024 Postop follow up visit related to original px Wes Sorensen DO Work Phone: [facility] Comment on above: Pre-op examination; Abnormal uterine bleeding (AUB) Start: 11-12-2024 End: 11-12-2024 Preprocedural examination done Wesghada Sorensen daPulse Work Phone: [facility] Start: 11-12-2024 End: 11-12-2024 ambulatory [facility] Work Phone: Start: 11-12-2024 End: 11-12-2024 Departed Referred Wes Edu DO Work Phone: [facility] Start: 10-22-2024 End: 10-22-2024 Office outpatient visit 15 minutes Wes Edu DO Work Phone: [facility] Comment on above: Abnormal uterine ble eding (AUB); Menorrhagia with regular cycle Start: 10-22-2024 End: 10-22-2024 ambulatory [facility] Not Available Start: 10-22-2024 End: 10-22-2024 Bamboo flowsheet Wes Edu DO Work Phone: [facility] Start: 10-22-2024 End: 10-22-2024 Bamboo flowsheet Wes Edu DO Work Phone: [facility] Start: 01-12-2023 End: 01-13-2023 ambulatory NONE LISTED REQUEST Facility:[facility] Start: 10-30-2022 End: 10-31-[address] MEHRAN COCHRAN . Facility:[facility] Start: 10-02-2022 End: 10-03-[address] MEHRAN COCHRAN . Facility:[facility] Start: 02-23-[address] MEHRAN COCHRAN . Facili ty:[facility] Start: 01-26-2022 Encounter for genera l adult medical examination without abnormal findings DR MEHRAN COCHRAN . [facility] Start: 01-23-2022 End: 01-24-[address] MEHARN COCHRAN . Facility:[facility] Start: 01-23-2022 End: 01-24-2022 Encounter for general adult medical examination without abnormal findings DR MEHRAN COCHRAN . Facility:[facility] Start: 02-05-2019 End: 02-05-2019 Departed Referred STAFF NON [facility] Procedures Date Procedure Procedure Detail Performing Clinician Start: 11-12-2024 Urine test visual color cmprsn meths Wes Edu DO Work Phone: Plan of Treatment Date Care Activity Detail Author Start: 11-12-2024 End: 11-12-2024 Patient encounter procedure 11/12/2024 2:30 PM EST Procedure Visit [facility] [address] [place] [id number] Wes Sorensen, DO [address] [place], [place] [id number] [facility] Start: 10-22-2024 End: 10-22-2024 Patient encounter procedure 10/22/2024 2:50 PM EST Office Visit [facility] [address] [place] [id number] Wes Sorensen, DO [address] [place] [address] Arrived [facility] Comment on above: Arrived Start: 10-22-2024 End: 10-22-2025 aPTT in Blood by Coagulation assay APTT Lab Routine Menorrhagia with regular cycle Expected: 10/22/2024 (Approximate), Expires: 10/22/2025 [facility] Comment on above: Expected: 10/22/2024 (Approximate), Expires: 10/22/2025 Start: 10-22-2024 End: 10-22-2025 US Pelvis US Pelvis w/ TV Imaging Routine Abnormal uterine bleeding (AUB) Menorrhagia with regular cycle Expected: 10/22/2024, Expires: 10/22/2025 [facility] Comment on above: Expected: 10/22/2024 , Expires: 10/22/2025 CBC W Auto Different ial panel - Blood CBC and differential Lab Routine Menorrhagia with regular cycle Ordered: 10/22/2024 [facility] Work Phone: Comment on above: Ordered: 10/22/2024 hCG, quantitative, hCG, quantitative, Lab Routine Menorrhagia with regular cycle Ordered: 10/22/2024 [facility] Comment on above: Ordered: 10/22/2024 Hemoglobin A1c/Hemoglobin.total in Blood Hemoglobin A1c Lab Routine Menorrhagia with regular cycle Ordered: 10/22/2024 [facility] Comment on above: Ordered: 10/22/2024 Prothrombin time (PT ) in Blood by Coagulation assay Protime-INR Lab Routine Menorrhagia with regular cycle Ordered: 10/22/2024 [facility] Comment on above: Ordered: 10/22/2024 Thyrotropin [Units/volume] in Serum or Plasma TSH Lab Routine Menorrhagia with regular cycle Ordered: 10/22/2024 [facility] Comment on above: Ordered: 10/22/2024 Thyroxine (T4) free [Mass/volume] in Serum or Plasma T4, free Lab Routine Menorrhagia with regular cycle Ordered: 10/22/2024 [facility] Comment on above: Ordered: 10/22/2024 Tissue exam Tissue exam Path ology and Cytology Routine Pre-op examination Abnormal uterine bleeding (AUB) Ordered: 11/12/20[address] [facility] Work Phone: Comment on above: Ordered: 11/12/2024 Payers Date Payer Category Payer Self-pay 2024 [facility] Care [facility] (unspecified) [employer] [id number] 2024 Private Health Insurance [id number] 1975 Unknown [id number] 1977 Unknown [id number] 1977 Unknown [id number] 1977 Unknown [id number] 1977 Unknown [id number] 1977 Unknown [id number] 1959 Self-pay [id number] 1959 Unknown [id number] 1957 Unknown [id number] Unknown [id number] Social History Date Type Detail Facility Start: 07-11-2023 Tobacco smoking status ARIS Ex-smoker [facility] History of tobacco use Current smoker [facility] History of tobacco use Cigarette Smoker [facility] Start: 07-11-2023 End: 10-22-2024 Alcoholic beverage intake Current drinker of alcohol (finding) [facility] Start: 07-11-2023 End: 10-22-2024 History of Social function [facility] Start: 07-11-2023 End: 10-22-2024 Alcohol Use Disorder Identification Test - Consumption [AUDIT-C] [facility] How often to you hav e a drink containing alcohol? 2-4 times a month [facility] Average Number of Drinks Not on file [facility] Start: 07-11-2023 Tobacco Comment Last smoked >10 years [facility] Start: 06-06-2023 Alcohol Comment caffeine: 1-2 cups per day [facility] Start: 1975 Sex assigned at Female [facility] Start: 04-30-2023 Gender identity Identifies as female gender (finding) [facility] Tobacco smoking stat us [facility] Unknown if ever smoked [facility] Work Phone: Start: 11-13-2024 Sex Female (finding) [facility] History of Present illness Narrative 11-12-2024 Mary Alice Limon LPN - 11/12/2024 2:30 PM EST Note Date & Type Note Facility 11-12-2024 History of Presen t illness Narrative Reason for Appointment: Patient ID: Edna Givens is a 49 y.o. female who presents for Pre-op Visit Patient presents today for Pre Op/Endometrial Biopsy appointment. Patient is scheduled to undergo Endometrial Ablation with Itzel on 12/05/[address] Sorensen at [facility]. MEDICATIONS Current Outpatient Medications Medication Instructions ibuprofen [...] 2000, 2004 DILATION AND CURETTAGE OF UTERUS 2003 REVIEW OF SYSTEMS Review of Systems: Review [...] nursing note reviewed. Exam conducted with a machine stitcher present. Vitals: Estimated body mass index is [...] reviewed, and patient is to proceed to [facility] OR. Follow Up: Patient is to follow [...] Narrative Reason for Appointment: Patient ID: Edna Givens is a 49 y.o. female who presents [...] of right foot History of miscarriage Hypothyroid ([facility] Social History Tobacco Use Smoking status: Former [...] nursing note reviewed. Exam conducted with a machine stitcher present. Vitals: Estimated body mass index is [...] Wes Sorensen DO documented in this encounter [facility] Evaluation note Note Date & Type Note Facility Evaluation note Diagnosis Abnormal uterine bleeding (AUB) Menorrhagia with regular cycle documented in this encounter [facility] Evaluation note Note Date & Type Note Facility Evaluation note Diagnosis Pre-op examination Abnormal uterine bleeding (AUB) documented in this encounter [facility] Evaluation note Note Date & Type Note Facility Evaluation note No assessment information availa [facility] Work Phone: Chief Complaint and Reason for Visit Encounter Admit Date Chief Complaint Reason for V isit Departed Referred February 05, 2019 10:17am wellness Chief Complaint Admit Date Unknown November 12, 2024 1:30 pm Summary Purpose Family History No Family History Records FoundNo Family History Records FoundNo Family History Records Found Advance Directives No Advanced Directives Records FoundNo Advanced Directives Records FoundNo Advanced Directives Records Found Additional Source Comments INFORMATION SOURCE (unrecogn ized section and content) DATE CREATED AUTHOR 01/12/2023 [facility] DATE CREATED AUTHOR AUTHOR'S ORGANIZ ATION 11/14/2024 [facility] EPIC DATE CREATED AUTHOR AUTHOR'S ORGANIZ ATION 11/18/2024 [facility] ys[facility] Care Teams (unrecognized sec tion and content) Canal Structure Operator Relationship Specialty Start Date End Date Mehran Cochran MD [address] [facility] [place] [phone] PCP - General Family Medicine 04/30/23 Canal Structure Operator Relationship Specialty Start Date End Date Mehran Cochran MD [address] [facility], [place] [address] PCP - General Family Medicine 04/30/23 Canal Structure Operator Relationship Specialty Start Date End Date Mehran Cochran MD [address] [facility] [place] [address] PCP - General Family Medicine 04/30/23 Team Status: Inactive Member Role Status Dates Wes Sorensen DO Attending Provider Active Start : November 12, 2024 End: November 12, 2024 Reason for Visit (unrecogniz ed section and content) Reason Comments Menstrual Problem Reason Comments Pre-op Visit Goals (unrecognized section and content) Goals may be documented in a n alternate section FOR RECORDS PERTAINING TO PATIENTS WHO ARE [...] BE BASED ON THE PRIMARY CLINICAL RECORDS. [employer] [facility]. provides no warranty or guarantee of the accuracy or completeness of information in this document.
[2024-11-22 11:49] LABS: Basophils Percent Auto 0.4 % (0.2-2.0); Eosinophils Absolute Auto 0.4 10^3/uL (0.0-0.7); Eosinophils Percent Auto 4.3 % (0.9-7.0); Hematocrit 35.3 % (36.0-48.0); Hemoglobin 11.2 g/dL (12.0-16.0); Immature Granulocytes Abs Auto 0.03 10^3/uL (0.00-0.03); Immature Granulocytes Pct Auto 0.3 % (0.0-0.5); Lymphocytes Absolute Auto 1.9 10^3/uL (1.2-3.8); Lymphocytes Percent Auto 20.5 % (20.5-60.0); Mean Corpuscular HGB Conc 31.7 g/dL (29.9-35.2); Mean Corpuscular Hemoglobin 26.2 pg (26.7-34.0); Mean Corpuscular Volume 82.5 fL (81.0-99.0); Mean Platelet Volume 10.2 fL (9.5-13.5); Monocytes Absolute Auto 0.5 10^3/uL (0.3-0.8); Neutrophils Absolute Auto 6.3 10^3/uL (1.4-6.5); Neutrophils Percent Auto 69.5 % (43.0-75.0); Platelet Count 324 10^3/uL (150-450); Red Blood Count 4.28 10^6/uL (4.20-5.40); Red Cell Distribution Width 15.7 % (11.0-15.0); White Blood Count 9.1 10^3/uL (4.0-11.0)
[2024-11-22 11:57] LABS: Estimated Average Glucose 120 mg/dL; Glycohemoglobin A1C 5.8 % (4.5-6.2)
[2024-11-22 12:02] LABS: INR 1.03; Partial Thromboplastin Time 29.6 sec (22.3-36.2); Prothrombin Time 10.9 sec (9.0-11.6)
[2024-11-22 12:14] LABS: Free T4 0.78 ng/dL (0.76-1.46)
[2024-11-22 12:19] LABS: Thyroid Stimulating Hormone 1.296 uIU/mL (0.358-3.740)
[2024-11-22 12:27] LABS: HCG Quantitative <1 mIU/mL
== END 2024-11-22 10:40 | disposition home or self-care (01) ==
PROVIDERS: PCP Family Medicine; Visit Provider Obstetrics & Gynecology
DX: N93.9 Abnormal uterine and vaginal bleeding, unspecified (principal); N92.0 Excessive and frequent menstruation with regular cycle; N83.202 Unspecified ovarian cyst, left side
CPT/HCPCS: 36415; 76830; 76856; 83036; 84439; 84443; 84702; 85025; 85610; 85730

== ENCOUNTER 2024-11-27 14:31 | Outpatient (OUT) | payer OTHER, SELFPAY ==
--- NOTE | 2024-11-27 14:35 | ECG_ITS ---
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 Measurements Intervals [place] Rate: 74 P: 54 TN: 150 QRS: 17 QRSD: 87 T: 30 QT: 371 QTc: 412 Interpretive Statements SINUS RHYTHM WITH SINUS ARRHYTHMIA Normal ECG Compared to ECG 06/22/2023 14:03:22 T-wave abnormality no longer present Electronically Signed On 11-27-2024 18:33:00 EDT by PITA LONGO M.D.
== END 2024-11-27 14:32 | disposition home or self-care (01) ==
LOC: PST 14:31
PROVIDERS: PCP Family Medicine; Visit Provider Obstetrics & Gynecology
DX: Z01.810 Encounter for preprocedural cardiovascular examination (principal); N92.0 Excessive and frequent menstruation with regular cycle; N93.9 Abnormal uterine and vaginal bleeding, unspecified; R10.2 Pelvic and perineal pain
CPT/HCPCS: 93005

== ENCOUNTER 2024-12-12 07:57 | Day surgery (SDC) | payer OTHER, SELFPAY ==
[2024-11-27 15:07] VITALS: BP 131/77; PULSE 80; TEMP 36.4; O2SAT 100; BMI 58.5
[2024-12-12] VITALS (7 sets, daily range): BP systolic 105–120; BP diastolic 55–85; PULSE 77–89; TEMP 36.2–36.6; O2SAT 93–96; BMI 57.0
[2024-12-12 08:11] LABS: Basophils Percent Auto 0.4 % (0.2-2.0); Eosinophils Absolute Auto 0.3 10^3/uL (0.0-0.7); Eosinophils Percent Auto 2.6 % (0.9-7.0); Hematocrit 36.5 % (36.0-48.0); Hemoglobin 11.5 g/dL (12.0-16.0); Immature Granulocytes Abs Auto 0.03 10^3/uL (0.00-0.03); Immature Granulocytes Pct Auto 0.3 % (0.0-0.5); Lymphocytes Absolute Auto 2.1 10^3/uL (1.2-3.8); Lymphocytes Percent Auto 21.2 % (20.5-60.0); Mean Corpuscular HGB Conc 31.5 g/dL (29.9-35.2); Mean Corpuscular Hemoglobin 25.3 pg (26.7-34.0); Mean Corpuscular Volume 80.4 fL (81.0-99.0); Monocytes Absolute Auto 0.6 10^3/uL (0.3-0.8); Monocytes Percent Auto 6.2 % (1.7-12.0); Neutrophils Absolute Auto 6.7 10^3/uL (1.4-6.5); Neutrophils Percent Auto 69.3 % (43.0-75.0); Platelet Count 304 10^3/uL (150-450); Red Blood Count 4.54 10^6/uL (4.20-5.40); Red Cell Distribution Width 14.7 % (11.0-15.0); White Blood Count 9.7 10^3/uL (4.0-11.0)
[2024-12-12] MEDS: SCOPOLAMINE 1 MG/3 DAYS TRANSDERM PATCH 1 PATCH TD (08:32)
[2024-12-12] MEDS: LACTATED RINGER'S SOLUTION 1,000 ML 50 ML IV ×2 (08:32→11:11)
[2024-12-12] MEDS: FAMOTIDINE/PF 20 MG/2 ML VIAL IV (08:32)
[2024-12-12 08:46] LABS: HCG Quantitative <1 mIU/mL
--- NOTE | 2024-12-12 10:23 | PM.ONB ---
Brief Operative Note Date of procedure: 12/12/24 Pre-op diagnosis general: menorrhagia Post-op diagnosis: same as pre-op Procedure: NAME OF PROCEDURE: [ ] Itzel endometrial ablation with hysteroscopy. PROCEDURE: The patient was taken back to the OR where she was prepped and draped in the normal sterile fashion after being placed in the dorsal lithotomy position, after being placed under general anesthesia without difficulty.? A weighted speculum was placed into the vagina. The anterior lip was grasped with a single tooth tenaculum. The patient was then sounded to approximated 8cm. The patient?s cervix was gently dilated using hegardilators. The hysteroscope was passed through the cervix into the uterus where both ostia were seen. No gross evidence of polyps, fibroids or malignancy. The cervical length was noted to be 4 cm. The total cavity length is 4cm.? The Itzel ablation apparatus was set to approximately 4cm in length. This was placed through the cervix and into the uterus. After the seal was tested, at that time the total ablation of 120 seconds was performed with the Itzel withoutdifficulty. All instruments were removed from the vagina. Excellent hemostasis noted.? Sponge and lap count correct times 2.? Patient taken to recovery in stable condition. Anesthesia: MAC Surgeon: Tristin Sorensen Estimated blood loss (mL): 5 Pathology: none sent Condition: stable Disposition: PACU Urinary Catheter Management Urinary Catheter Management Urethral: Cath placed during this visit: no
[2024-12-12] MEDS: HYDROCODONE/ACET 5-325 MG TABLET 1 TAB PO (11:06)
== END 2024-12-12 11:58 | disposition home or self-care (01) ==
PROVIDERS: PCP Family Medicine; Visit Provider Obstetrics & Gynecology
PROC: (CPT 952; principal; 2024-12-12 09:10)
DX: N92.0 Excessive and frequent menstruation with regular cycle (principal); N93.9 Abnormal uterine and vaginal bleeding, unspecified; R10.2 Pelvic and perineal pain; E66.01 Morbid (severe) obesity due to excess calories; Z68.43 Body mass index [BMI] 50.0-59.9, adult; Z87.891 Personal history of nicotine dependence; K21.9 Gastro-esophageal reflux disease without esophagitis; E03.9 Hypothyroidism, unspecified
CPT/HCPCS: 58563; 36415; 84702; 85025; J1885; J2250; J2704; J3010; J3490

== ENCOUNTER 2025-04-01 19:45 | Outpatient (REF) | payer BC, SELFPAY ==
--- OUTSIDE RECORDS SUMMARY | 2024-12-01 06:45 | XMS_ITS ---
Author Organization [facility] in [place] Address [address] [place] [address] Care Team Providers Care Care Companion Name Role Phone Daryl Cochran Primary Care Provider Allergies No Known Allergies Results Component Value Reference Range Notes COVID-19, Flu A+B IH Reviewed date:12/01/2024 11:15:34 AM Interpretation: Performing Lab: Notes/Report: COVID - FLU A - FLU B - Control + REASON FOR VISIT not feeling well- started med over weekend, symptoms are cough, congestion and BAR, patient declinedcovid/flu test Medications Medication SIG (Take, Route, Frequency, Duration) Notes Start Date End Date Status Cefdinir 300 MG 2 capsule Orally onc e a day for 10 days 11/28/2024 Active levoFLOXacin 750 MG 1 tablet Orally Once a day for 10 day(s) 12/01/2024 Active Triamcinolone Acetonide 0.1 % 1 application Externally bid 09/04/2024 Active Soma 350 MG 1 tablet as needed O rally Four times a day- as needed PRN Active Meclizine HCl 25 MG 1 tablet as needed O rally QID PRN 02/27/2024 Active Liothyronine Sodium 5 MCG 2 tablet on an empty stomach Orally Once a day for 90 days 01/12/2023 Active Levothyroxine Sodium 50 MCG 1 tablet in the morning on an empty stomach Orally Once a day for 90 days 01/12/2023 Active Ibuprofen 800 MG 1 tablet with food o r milk as needed Orally every 8 hrs PRN Active Social History Tobacco Use: Social History Observation Description Date Details (start date - stop date) Former Smoker 09/10/1995 - 09/10/2006 Tobacco Use/Smoking Question Answer Notes Patient is a former smoker When did you start smoking? 09/10/1995 When did you stop smoking? 09/10/2006 AUDIT-C (Standard) Question Answer Notes Did you have a drink containing alcohol in the p ast year? No Points 0 Interpretation Negative Vital Signs Weight 303.2 lbs 12/01/2024 Height 61 in 12/01/2024 Blood pressure systolic 128 mm Hg 12/02/19 25 Blood pressure diastolic 70 mm Hg 025 Temperature 97.8 degrees Fahrenheit 12/02/19 25 BMI 57.28 kg/m2 12/01/2024 Encounters Encounter Location Date Provider Diagnosis [facility] [address] [place] [address] 12/01/2024 Daryl Hoy Acute bronchitis, unspecified organism J20.9 and Acute bronchiolitis J21.9 Assessments Encounter Date Diagnosis (ICD Code) Assessment Notes Treatment Notes Treatment Clinical Notes Section Notes 12/01/2024 Acute bronchitis, unspecified organism (ICD-10 - J20.9) Rest and drink more liquids, especially water. You may use a humidifier or vaporizer to help keep the drainage moist. Qffc-fut-gnouhwm Nasal Saline may help the stuffy and runny nose. Use Ibuprofen and or Tylenol as needed for fever, chills, body aches or pain. Children 5 years old should not be given bisf-qhm-tmlhlvy cough and cold medications such as guaifenesin and dextromethorphan. If you're over age 5, you may try tjcx-vnd-drrynfl cold medications such as guaifenesin and dextromethorphan, or multi-symptom cold reliever such as Dayquil to help reduce the symptoms. Antibiotics have been prescribed. You should take these until completed and follow the directions. Antibiotics can sometimes cause upset stomach, and in rare cases, serious allergic reactions or serious gastrointestinal problems. If you start having severe abdominal pain, severe vomiting, or bloody diarrhea, you should be reevaluated by your physician or urgent care immediately. Follow up with your Primary Care Provider or return to clinic if symptoms do not improve within 3-5 days. If you develop severe symptoms such as shortness of breath, repeated vomiting, coughing up blood, or chest pain you should go to the emergency room or call 911 12/01/2024 Acute bronchiolitis (ICD-10 - J21.9) Plan Of Treatment Medication Medication Name Sig Start Date Stop Date Notes levoFLOXacin 750 MG 1 tablet Orally Once a day for 10 day(s) 12/01/2024 Treatment Notes Assessment Notes Acute bronchitis, unspecified organism R est and drink more liquids, especially water. You may use a humidifier or vaporizer to help keep the drainage moist. Eeld-ijd-tienhly Nasal Saline may help the stuffy and runny nose. Use Ibuprofen and or Tylenol as needed for fever, chills, body aches or pain. Children 5 years old should not be given ands-rtv-opcriuy cough and cold medications such as guaifenesin and dextromethorphan. If you're over age 5, you may try enzt-egm-whmyphv cold medications such as guaifenesin and dextromethorphan, or multi-symptom cold reliever such as Dayquil to help reduce the symptoms. Antibiotics have been prescribed. You should take these until completed and follow the directions. Antibiotics can sometimes cause upset stomach, and in rare cases, serious allergic reactions or serious gastrointestinal problems. If you start having severe abdominal pain, severe vomiting, or bloody diarrhea, you should be reevaluated by your physician or urgent care immediately. Follow up with your Primary Care Provider or return to clinic if symptoms do not improve within 3-5 days. If you develop severe symptoms such as shortness of breath, repeated vomiting, coughing up blood, or chest pain you should go to the emergency room or call 911 Next Appt Details Follow Up: 3-5 days if not i mproving, Reason: Progress Notes * Edna GIVENSDOB: [birth year] (49 yo F)Acc No.[id number]:12/01/2024 Progress Note Patient: Edna WONG Provider: Rigoberto Cochran ([facility])MD :1975 A ge:49 Y S ex:Female Date:12/01/2024 Address:[facility] [address], [facility], [phone] Check In:10:48 AM Nacho Hong ut:11:18 AM EST Subjective: * Chief Complaints: * n ot feeling well- started med over weekend, symptoms are cough, congestion and HAPatient declined covid/flu test * HPI: B ronchitis: The patient complains of symptoms of bronchitis. The symptoms have been present for 1-2 days. The symptoms are moderate. The patient has not been exposed to sick contacts. Symptomatic treatment has included OTC medication. Associated symptoms include nasal congestion, postnasal drainage, congested ears, cough, fever, chills, body aches. D epression Screening: PHQ-2 (2015 Edition) L ittle interest or pleasure in doing things??Not at all F eeling down, depressed, or hopeless? N ot at all T otal Score 0 * ROS: E NT: Ear pain d enies. H oarseness d enies. ? C ardiovascular: Edema d enies. P alpitations d enies. ? R espiratory: Comments S ee HPI for details. G astrointestinal: Abdominal pain d enies. D iarrhea d enies. N ausea d enies. S kin: Rash d enies. * Active Problem List 724.5 Low back pain Modified On:03/26/2023 Status:confirmed L52 Erythema nodosum Modified On:03/26/2023 Status:confirmed R00.2 Palpitations Modified On:03/26/2023 Status:confirmed E03.9 Hypothyroid Modified On:03/26/2023 Status:confirmed M50.90 Cervical disc diseas e Modified On:03/26/2023 Status:confirmed N93.8 DUB (dysfunctional u terine bleeding) Modified On:03/26/2023 Status:confirmed M72.2 Plantar fasciitis Modified On:03/26/2023 Status:confirmed M79.7 Fibromyalgia Modified On:03/26/2023 Status:confirmed N92.0 Heavy menstrual blee ding Modified On:04/13/2023 Status:confirmed N93.9 Abnormal uterine and vaginal bleeding, unspecified Modified On:04/16/2023 Status:confirmed J21.9 Acute bronchiolitis Modified On:12/18/2023W/U Status:confirmed M54.89 Other dorsalgia Modified On:10/15/2023W/U Status:confirmed R42 Vertigo Modified On:02/27/2024W/U Status:confirmed * Medical History: * Surgical History: D &C x2 Hystroscopy 07/02 * Hospitalization/Major Diagno stic Procedure: S ee above * Family History: F ather: , diagnosed with Diabetes mellitus without mention of complication, type II or unspecified type, not stated as uncontrolled, Unspecified essential hypertension, Unspecified heart disease. M other: , diagnosed with Diabetes mellitus without mention of complication, type II or unspecified type, not stated as uncontrolled, Unspecified essential hypertension, Unspecified heart disease, Chronic kidney disease, unspecified. B ollie(s): alive, 1 brother a . S jazzy(s): alive, diagnosed with Chronic kidney disease, unspecified. 2 brother(s) , 3 sister(s) . 1 son(s) , 1 daughter(s) - healthy. . * Social History: T obacco Use: T obacco Use/Smoking P atient is a f ormer smoker W hen did you start smoking? 0 09/10/1995 W hen did you stop smoking? 0 09/10/2006 D rug/Alcohol: A JUDSON-C (Standard) D id you have a drink containing alcohol in the past year? N o P oints 0 I nterpretation N egative * Medications: T akingCefdinir 300 MG Capsule 2 capsule Orally once a day Ibuprofen 800 MG Tablet 1 tablet with food or milk as needed Orally every 8 hrs , Notes to Pharmacist: PRNLevothyroxine Sodium 50 MCG Tablet 1 tablet in the morning on an empty stomach Orally Once a day Liothyronine Sodium 5 MCG Tablet 2 tablet on an empty stomach Orally Once a day Meclizine HCl 25 MG Tablet 1 tablet as needed Orally QID , Notes to Pharmacist: PRNSoma(Carisoprodol) 350 MG Tablet 1 tablet as needed Orally Four times a day- as needed , Notes to Pharmacist: PRNTriamcinolone Acetonide 0.1 % Cream 1 application Externally bid Medication List reviewed and reconciled with the patientTaking Cefdinir 300 MG Capsule 2 capsule Orally once a day Taking Ibuprofen 800 MG Tablet 1 tablet with food or milk as needed Orally every 8 hrs , Notes to Pharmacist: PRNTaking Levothyroxine Sodium 50 MCG Tablet 1 tablet in the morning on an empty stomach Orally Once a day Taking Liothyronine Sodium 5 MCG Tablet 2 tablet on an empty stomach Orally Once a day Taking Meclizine HCl 25 MG Tablet 1 tablet as needed Orally QID , Notes to Pharmacist: PRNTaking Soma(Carisoprodol) 350 MG Tablet 1 tablet as needed Orally Four times a day- as needed , Notes to Pharmacist: PRNTaking Triamcinolone Acetonide 0.1 % Cream 1 application Externally bid Medication List reviewed and reconciled with the patient * Allergies: N .K.D.A.no[Allergies Verified] Objective: * Vitals: W t:303.2lbs, Ht: 61 in, BP:128/70mm Hg, Temp:97.8F, BMI:57.28Index, Wt-k.53 kg. * Examination: G eneral Examination: GENERAL APPEARANCE: in no acute distress. EYES: EOMI. EARS: auditory canal clear, middle ear effusion noted.? NOSE: clear discharge, turbinates pale and swollen. ORAL CAVITY: mucosa moist. THROAT: no erythema, post-nasal drainage noted. NECK: neck supple, no thyromegaly. LYMPH NODES: n o cervical adenopathy. LUNGS: unlabored, clear to auscultation bilaterally. CARDIO: n o murmurs, regular rate and rhythm. ABDOMEN: bowel sounds present, no organomegaly . ? Assessment: * Assessment: 1. A cute bronchitis, unspecified organism - J20.9 (Primary) 2 . A cute bronchiolitis - J21.9 Plan: * Treatment: * Labs: * L ab: COVID-19, Flu A+B IH (Collection Date & Time - 12/01/2024) Value Reference Range C OVID - * F NICCI A - * F NICCI B - * C ontrol + * Procedure Codes: 8 7426 INFECTIOUS AGENT ANTIGEN COVID 19, Modifiers: QW * Preventive Medicine: Screenings/Counseling: B DE ACTION PLAN Above Normal BMI Follow-up D ietary management education, guidance, and counseling * Follow Up: 3 -5 days if not improving * * Sign off status: Completed Visit Status: C HK (Check Out) true * Provider: Rigoberto Cochran ([facility])MD Date: 0 12/01/2024 Generated for Emmett delgadillo/Rob/Lelanditting on: 0 04/01/2025 07:47 PM EDT History and Physical Notes * HPI (History of Present Illness) Category Sub-Category Detail Notes Category Not es Depression Screening PHQ-2 (2015 Edition) Little interest or pleasure in doing things?: Not at all Feeling down, depressed, or hopeless?: N ot at all Total Score: 0 Examination Category Sub-Category Detail Notes Category Not es General Examination GENERAL APPEARANCE: in no acute di stress EYES: EOMI EARS: auditory canal clear , middle ear effusion noted NOSE: clear discharge, tur binates pale and swollen THROAT: no erythema, post-na rey drainage noted NECK: neck supple, no thyr omegaly CARDIO: no murmurs, regular rate and rhythm LUNGS: unlabored, clear to auscultation bilaterally ABDOMEN: bowel sounds present , no organomegaly LYMPH NODES: no cervical adenopat hy ORAL CAVITY: mucosa moist
--- OUTSIDE RECORDS SUMMARY | 2024-12-01 07:09 | XMS_ITS ---
Author Organization [facility] in [place] Address [address] [place] [address] Care Team Providers Care Breeding Manager Name Role Phone Daryl Cochran Primary Care Provider [phone] REASON FOR VISIT bronchitis- surgery Encounters Encounter Location Date Provider Diagnosis [facility] [address] [place] [address] 12/01/2024 Daryl Cochran Plan Of Treatment No Information Progress Notes * Edna GIVENSDOB: 8 (49 yo F)Acc No.[id number]:12/01/2024 Patient: Eufemia JACKSON Edna :1975 A ge:49 Y S ex:Female Address:[address] [place], [address] * true * Date: Generated for Cindyi ng/Fadorag/eTransmitting on: 0 04/01/2025 03:21 PM EDT
--- OUTSIDE RECORDS SUMMARY | 2025-02-11 04:46 | XMS_ITS ---
Author Organization [facility] in [place] Address [address] [place] [address] Care Team Providers Care Consulting Application Engineer Name Role Phone Daryl Cochran Primary Care Provider [phone] REASON FOR VISIT Note Encounters Encounter Location Date Provider Diagnosis [facility] [address] [place] [address] 02/11/2025 Daryl Cochran Plan Of Treatment No Information Progress Notes * Edna GIVENSDOB: [birth year] (49 yo F)Acc No.[id number]:02/11/2025 Patient: Eufemia JACKSON Edna :1975 A ge:49 Y S ex:Female Address:[address] [place], [address] * true * Date: Generated for Cindyi ng/Fadorag/eTransmitting on: 0 04/01/2025 03:21 PM EDT
--- OUTSIDE RECORDS SUMMARY | 2025-04-01 15:20 | XMS_ITS | Encounter Summary ---
Author Organization [facility] Address [address] [place] [address] Care Team Providers Care Cds Sales Advisor Name Role Phone Dave Cochran MD Primary Care Provider [phone] Reason for Visit * Reason Comments Well Women Visit Encounter Details Date Type Department Care Team (Late st Contact Info) Description 04/01/2025 3:20 PM EDT Office Visit [facility] [address] [place] [address] Tristin Sorensen, DO [address] [place] [address] Well woman exam with routine gynecological exam; Breast cancer screening by mammogram Social History Tobacco Use Types Packs/Day Years Used Date Smoking Tobacco: Former Cigarettes Comments:Last smoked >10 yea rs Alcohol Use Standard Drinks/Week Comments Yes 0 (1 standard drink = 0.6 oz pur e alcohol) caffeine: 1-2 cups per day AUDIT-C Answer Date Recorded Q1: How often do you have a drink containing alc ohol? 2-4 times a month 07/11/2023 Average Number of Drinks Not on file 023 Frequency of Binge Drinking Not on file 09/2022 Comments Unknown Sex and Gender Information Value Date Recorded Sex Assigned at Female 04/30/2023 9:40 AM EDT Legal Sex Female 11:50 PM EDT Gender Identity Female 04/30/2023 9:40 AM EDT Sexual Orientation Not on file documented as of this encounter Last Filed Vital Signs Vital Sign Reading Time Taken Comments Blood Pressure 110/70 04/01/2025 3:31 PM EDT Pulse - - Temperature - - Respiratory Rate - - Oxygen Saturation - - Inhaled Oxygen Concentration - - Weight 140 kg (307 lb 12.8 oz) 04/01/2025 3:31 P M EDT Height - - Body Mass Index 52.83 06/18/2023 8:30 AM EDT documented in this encounter Progress Notes * DOV Cody - 04/01/2025 3:20 PM EDT Reason for Appointment: Patient ID: Edna Moon is a 49 y.o. female who presents for Well Women Visit Patient presents today for Annual Exam. MEDICATIONS Current Outpatient Medications Medication Instructions ibuprofen 800 mg, Every 6 hours PRN levothyroxine (SYNTHROID, LEVOXYL) 50 mcg, Every morning liothyronine (CYTOMEL) 10 mcg, Daily meclizine (ANTIVERT) 25 mg, 3 times daily PRN triamcinolone (Kenalog) 0.1 % cream 1 Application, 2 times daily ALLERGIES No Known Allergies PROBLEMS Active Ambulatory Problems Diagnosis Date Noted No Active Ambulatory Problems Resolved Ambulatory Problems Diagnosis Date Noted No Resolved Ambulatory Problems Past Medical History: Diagnosis Date Arthritis Cellulitis of right foot History of miscarriage Hypothyroid HISTORY PAST MEDICAL HISTORY SOCIAL HISTORY Past Medical History: Diagnosis Date Arthritis Cellulitis of right foot History of miscarriage Hypothyroid Social History Tobacco Use Smoking status: Former [...] 2004 DILATION AND CURETTAGE OF UTERUS 2004 ENDOMETRIAL ABLATION 12/12/2024 REVIEW OF SYSTEMS Review of Systems: Review of Systems Constitutional: Negative. HENT: Negative. Eyes: Negative. Respiratory: Negative. Cardiovascular: Negative. Gastrointestinal: Negative. Genitourinary: Negative. Musculoskeletal: Negative. Skin: Negative. Neurological: Negative. All other systems reviewed and are negative. Hematological: Negative. Endocrine: Negative. Allergic/Immunologic: Negative. OBJECTIVE Objective: Physical Exam Constitutional: Appearance: Normal appearance. Genitourinary: Right Adnexa: not tender and no mass present. Left Adnexa: not tender and no mass present. No cervical discharge. Breasts: Breasts are soft. Right: Normal. Left: Normal. HENT: Head: Normocephalic. Nose: Nose normal. Mouth/Throat: Mouth: Mucous membranes are moist. Cardiovascular: Rate and Rhythm: Normal rate. Pulmonary: Effort: Pulmonary effort is normal. Abdominal: General: Bowel sounds are normal. Palpations: Abdomen is soft. Musculoskeletal: General: Normal range of motion. Cervical back: Normal range of motion. Neurological: General: No focal deficit present. Mental Status: She is alert. Skin: General: Skin is warm and dry. Psychiatric: Mood and Affect: Mood normal. Vitals and nursing note reviewed. Exam conducted with a tin container straightener present. Vitals: Estimated body mass index is 52.83 kg/m?? as calculated from the following: Height as of 06/18/23: 5' 4 . Weight as of this encounter: 307 lb 12.8 oz. BP: 110/70 Patient's last menstrual period was 03/26/2025. ASSESSMENT & PLAN ICD-10-CM 1. Well woman exam with routine gynecological exam Z01.419 THIN PREP TIS PAP AND HR HPV DNA 2. Breast cancer screening by mammogram Z12.31 Bilateral screening mammogram Bilateral screening mammogram Annual Exam: Patient presents today for an annual exam. Patient states she is doing well and has no complaints. Pap was obtained without difficulty. Orders Placed This Encounter Procedures Bilateral screening mammogram Patient states bleeding improved post ablation Follow Up: Patient is to return in one year for annual unless needed otherwise. Documented by DOV Cody on behalf of: Tristin Sorensen DO documented in this encounter Plan of Treatment Upcoming Encounters Date Type Department Care Team (Late st Contact Info) Description 11/12/2025 Abstract [facility] [address] [place] [id number] Tristin Sorensen DO [address] [place] [address] 04/07/2026 4:00 PM EDT Procedure Visit [facility] [address] [place] [address] Tristin Sorensen, DO [address] [place] [address] Scheduled Orders Name Type Priority Associated Diagnoses Orde r Schedule Bilateral screening mammogram Imaging Routine Breast cancer screening by mammogram Expected: 04/01/2025 (Approximate), Expires: 06/02/2026 THIN PREP TIS PAP AND HR HPV DNA Pathology and Cytology Routine Well woman exam with routine gynecological exam Ordered: 04/01/2025 documented as of this encounter Visit Diagnoses Diagnosis Well woman exam with routine gynecological exam Routine gynecological examination Breast cancer screening by mammogram documented in this encounter Care Teams Cds Sales Advisor Relationship Specialty Start Date End Date Dave Cochran MD [address] [facility] [place] [address] PCP - General Family Medicine 04/30/23 documented as of this encounter
--- OUTSIDE RECORDS SUMMARY | 2025-04-01 19:47 | XMS_ITS | Encounter Summary ---
Author Organization [facility] Address [address] [place] [address] Care Team Providers Care Ship Rigger Apprentice Name Role Phone Dave Cochran MD Primary Care Provider [phone] Encounter Details Date Type Department Care Team (Late st Contact Info) Description 07/06/2023 Abstract [facility] [address] [place] [phone] Tristin Sorensen DO [facility] [place], [facility] Social History Tobacco Use Types Packs/Day Years Used Date Smoking Tobacco: Former Cigarettes Alcohol Use Standard Drinks/Week Comments Yes 0 (1 standard drink = 0.6 oz pur e alcohol) caffeine: 1-2 cups per day Comments Unknown Sex and Gender Information Value Date Recorded Sex Assigned at Female 04/30/2023 9:40 AM EDT Legal Sex Female 11:50 PM EDT Gender Identity Female 04/30/2023 9:40 AM EDT Sexual Orientation Not on file documented as of this encounter Plan of Treatment Upcoming Encounters Date Type Department Care Team (Late st Contact Info) Description 11/12/2025 Abstract [facility] [address] [place] [phone] Tristin Sorensen DO [address] [place], [place] [id number] 04/07/2026 4:00 PM EDT Procedure Visit [facility] [address] [facility] [place] [address] Tristin Sorensen DO [address] [facility] [address] [place], [place] [id number] documented as of this encounter Visit Diagnoses Not on filedocumented in this encounter Care Teams Ship Rigger Apprentice Relationship Specialty Start Date End Date Dave Cochran MD [address] [place] [phone] PCP - General Family Medicine 04/30/23 documented as of this encounter
--- OUTSIDE RECORDS SUMMARY | 2025-04-01 19:48 | XMS_ITS | Encounter Summary ---
Author Organization [facility] Address [address] [place] [address] Care Team Providers Care Jointer Operator Name Role Phone Dave Cochran MD Primary Care Provider [phone] Encounter Details Date Type Department Care Team (Latest Contact Info) Description 03/30/2025 Travel Social History Tobacco Use Types Packs/Day Years [...] st Contact Info) Description 11/12/2025 Abstract [facility] [address] [place] [phone] Tristin Sorensen DO [address] [place] [address] 04/07/2026 4:00 PM EDT Procedure Visit [facility] [address] [facility] [place] [phone] Tristin Sorensen DO [address] [facility] [address] documented as of this encounter Visit Diagnoses Not on filedocumented in this encounter Care Teams Jointer Operator Relationship Specialty Start Date End Date Dave Cochran MD [address] [facility] [place] [address] PCP - General Family Medicine 04/30/23 documented as of this encounter
--- OUTSIDE RECORDS SUMMARY | 2025-04-01 19:48 | XMS_ITS | Encounter Summary ---
Author Organization [facility] Address [address] [place] [address] Care Team Providers Care Deputy Attorney General Name Role Phone Dave Jackson MD Primary Care Provider [phone] Encounter Details Date Type Department Care Team (Late st Contact Info) Description 06/22/2023 Clinisync Result Encounter [facility] External Department Unsolicited Tristin Sorensen, [facility] [place] [address] Social History Tobacco Use Types Packs/Day Years [...] Abstract [facility] [address] [place] [address] Tristin Sorensen DO [address] [place] [address] [place] [address] 04/07/2026 4:00 PM EDT Procedure Visit [facility] [address] [place] [address] Tristin Sorensen, DO [address] [place] [address] [place] [address] documented as of this encounter Procedures Procedure Name Priority Date/Time Associated Diagnosis Comments ECG 12-LEAD 06/22/2023 2:03 PM EDT documented in this encounter Results * ECG 12-LEAD (06/22/2023 2:03 PM EDT) Anatomical Region Laterality Modality Other 06/22/2023 2:03 PM EDT Narrative 06/22/2023 2:03 PM EDT The [address] [address] Electrocardiograph Report Signed Patient: SARA MOON MR#: [id number] : 1975 Acct:[id number] Age/Sex: 47 / F ADM Date: 06/22/23 Loc: PST Attending Dr: Tristin Sorensen D.O. Ordering Physician: Tristin Sorensen D.O. 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 Signed By: 06/25/23 0708 DD/ 1403 TD/TT: Electric Motor Controls Assembler: Procedure Note Radiology, Radiologist, - 06/25/[address] [address] Electrocardiograph Report Signed Patient: SARA MOON MMR#: [id number] : 1975Acct:[id number] Age/Sex: 47 / FADM Date: 06/22/23 Loc: [facility] Attending Dr: Tristin Sorensen D.O. Ordering Physician: Tristin Sorensen D.O. 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 Signed By:06/25/23 0708 DD/ 1403 TD/TT: Electric Motor Controls Assembler: us Tristin Sorensen DO [facility] Final Result documented in this encounter Visit Diagnoses Not on filedocumented in this encounter Care Teams Deputy Attorney General Relationship Specialty Start Date End Date Dave Jackson MD [address] [place] [address] PCP - General Family Medicine 04/30/23 documented as of this encounter
--- OUTSIDE RECORDS SUMMARY | 2025-04-01 19:48 | XMS_ITS | Clinical Summary ---
Author Organization [facility] Address [address] [place] [address] Care Team Providers Care Cdl Company Driver Name Role Phone Dave Cochran MD Primary Care Provider [phone] Allergies No known active allergies Medications meclizine (Antivert) 25 MG tablet Take 25 mg by mouth 3 (three) times a day as needed for dizziness. 2 Active levothyroxine (Synthroid, Levoxyl) 50 MCG tablet Take 50 mcg by mouth in the morning. Take on an empty stomach.. Active liothyronine (Cytomel) 5 MCG tablet Take 10 mcg by mouth in the morning. Active ibuprofen 800 MG tablet Take 800 mg by mouth every 6 (six) hours if needed for mild pain. Active triamcinolone (Kenalog) 0.1 % cream Apply 1 Application topically in the morning and 1 Application before bedtime. 4 Active Encounters Date Type Department Care Team Description 04/01/2025 3:20 PM EDT Office Visit [facility] [address] [place] [address] Tristin Sorensen, DO Well woman exam with routine gynecological exam; Breast cancer screening by mammogram 04/01/2025 Bamboo flowsheet [facility] [address] [place] [address] Tristin Sorensen, 03/30/2025 Travel 12/31/2024 3:10 PM EDT Office Visit [facility] [address] [place] [address] Tristin Sorensen DO Postop check; S/P endometrial ablation 12/31/2024 Travel 12/31/2024 Bamboo flowsheet [facility] [address] [place] [address] Tristin Sorensen DO from Last 3 Months Family History Medical History Relation Name Comments Miscarriages / Stillbirths Brother d eceased at childbirth , one miscarriage Diabetes Father Heart disease Father Hypertension Father Diabetes Mother Heart disease Mother Hypertension Mother Kidney failure Mother Stroke Mother Diabetes Other Heart disease Other Relation Name Status Comments Brother patient has 2 b rothers Daughter Alive Father Mother Other Sister patient has 3 s isters Son Alive Social History Tobacco Use Types Packs/Day Years Used Date Smoking Tobacco: Former Cigarettes Tobacco Cessation:Counseling Given: Not Answered Comments:Last smoked >10 years Alcohol Use Standard Drinks/Week Comments Yes 0 [...] AM EDT Sexual Orientation Not on file Last Filed Vital Signs Vital Sign Reading Time Taken Comments Blood Pressure 110/70 04/01/2025 3:31 PM EDT Pulse - - Temperature - - Respiratory Rate - - Oxygen Saturation - - Inhaled Oxygen Concentration - - Weight 140 kg (307 lb 12.8 oz) 04/01/2025 3:31 P M EDT Height 162.6 cm (5' 4 ) 06/18/2023 8:30 AM EDT Body Mass Index 52.83 06/18/2023 8:30 AM EDT Plan of Treatment Upcoming Encounters Date Type Department Care Team (Late st Contact Info) Description 11/12/2025 Abstract [facility] [address] [place] [address] Tristin Sorensen, DO [address] [place] [address] 04/07/2026 4:00 PM EDT Procedure Visit [facility] [address] [place] [address] Tristin Sorensen, DO [address] [place], [place] [id number] Insurance BCBS Care Teams Cdl Company Driver Relationship Specialty Start Date End Date Dave Cochran MD [address] [facility] [place] [address] PCP - General Family Medicine 04/30/23
--- OUTSIDE RECORDS SUMMARY | 2025-04-01 19:48 | XMS_ITS | Encounter Summary ---
Author Organization [facility] Address [address] [place] [address] Care Team Providers Care Toll Testboard Worker Name Role Phone Dave Cochran MD Primary Care Provider [phone] Encounter Details Date Type Department Care Team (Late st Contact Info) Description 04/01/2025 Bamboo flowsheet [facility] [address] [place] [address] Tristin Sorensen, [address] [place] [address] Social History Tobacco Use Types Packs/Day Years [...] 11/12/2025 Abstract [facility] [address] [place] [address] Tristin Sorensen, DO [address] [place] [address] 04/07/2026 4:00 PM EDT Procedure Visit [facility] [address] [facility] [place] [phone] Tristin Sorensen, DO [address] [facility] [place] [address] documented as of this encounter Visit Diagnoses Not on filedocumented in this encounter Care Teams Toll Testboard Worker Relationship Specialty Start Date End Date Dave Cochran MD [address] [place] [address] PCP - General Family Medicine 04/30/23 documented as of this encounter
--- OUTSIDE RECORDS SUMMARY | 2025-04-01 19:49 | XMS_ITS | CCD ---
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 Name Role Phone NON, STAFF Primary Care [...] Unavailable Mehran Cochran MD Primary Care Provider [phone] Wes Sorensen Attending Unavailable Wes Sorensen Admitting Unavailable Wes Sorensen DO Attending Provider WES SORENSEN Attending Unavailable WES SORENSEN Attending Unavailable WES SORENSEN Attending Unavailable Mehran Cochran MD Primary Care Provider [phone] Medications Current Medications Medication Drug Class(es) Dates Sig (Normalized) Sig (Original) ibuprofen 800 mg oral tablet (12 sources) Nonsteroidal Anti-inflammatory Drug take 1 tablet by mouth every six hours as needed for pain ibuprofen 800 MG tablet Take 800 mg by mouth every 6 (six) hours if needed for mild pain. Active levothyroxine sodium 0.05 mg oral tablet (12 sources) l-Thyroxine take 1 tablet by mouth in the morning levothyroxine (Synthroid, Levoxyl) 50 MCG tablet Take 50 mcg by mouth in the morning. Take on an empty stomach.. Active liothyronine sodium 0.005 mg oral tablet (12 sources) l-Triiodothyronine take 2 tablets by mouth in the morning liothyronine (Cytomel) 5 MCG tablet Take 10 mcg by mouth in the morning. Active meclizine hydrochloride 25 mg oral tablet (12 sources) Antiemetic Start: 05-12-2022 take 1 tablet by mouth three times daily as needed for dizziness meclizine (Antivert) 25 MG tablet Take 25 mg by mouth 3 (three) times a day as needed for dizziness. 05/12/2022 Active triamcinolone acetonide 1 mg/ml topical cream (11 sources) Corticosteroid Start: 09-04-2024 triamcinolone (Kenalog) 0.1 [...] Active Problems Problem Classification Problem Date Documented Date Episodic/Chronic Joint disorders and dislocations; trauma-related (4 sources) Unspecified internal derangement of right knee; Translations: [UNS INTERNAL DERANGEMENT RIGHT KNEE] Onset: 10-02-2022 Chronic Menstrual disorders (2 sources) Menorrhagia; Translations: [Excessive and frequent menstruation with regular cycle] 10-22-2024 Chronic Other aftercare (2 sources) Surgical follow-up; Translations: [Encounter for follow-up examination after completed treatment for conditions other than malignant neoplasm] 12-31-2024 Episodic Other female genital disorders (3 sources) Abnormal uterine bleeding; Translations: [Abnormal uterine and vaginal bleeding, unspecified] 10-22-2024 Chronic Other screening for suspected conditions (not mental disorders or infectious disease) (2 sources) Patient encounter status; Translations: [Encounter for screening mammogram for malignant neoplasm of breast] 04-01-2025 Episodic Residual codes; unclassified (2 sources) History of endometrial ablation; Translations: [Other specified postprocedural states] 12-31-2024 Episodic Skin and subcutaneous tissue infections (4 sources) Cellulitis of right lower limb; Translations: [CELLULITIS OF RIGHT LOWER LIMB] Onset: 10-30-2022 Episodic Past or Other Problems Problem Classification Problem Date Documented Da te Episodic/Chronic Other connective tissue disease (1 source) Plantar fascial fibromatosis; Translations: [PLANTAR FASCIAL FIBROMATOSIS] Onset: 2022 Episodic Results Test Name Value Interpretation Reference Range Facility ALL CBC WITH AUTO DIFFon BASOPHILS ABSOLUTE AUTO 0 [facility] Basophils/100 WBC (Bld) 0.4 % 0.2 - 2.0 % [facility] Eosinophils/100 WBC (Bld) 2.6 % 0.9 - 7.0 % [facility] Erythrocyte distribution width (RBC) [Ratio] 14.7 % 11.0 - 15.0 % [facility] Hematocrit (Bld) [Volume fraction] 36.5 % 36.0 - 48.0 % [facility] Hem[facility] (Bld) [Mass/Vol] 11.5 g/dL Low 12.0 - 16.0 g/dL [facility] IMMATURE GRANULOCYTES ABS AUTO 0.03 [facility] Immature granulocytes/100 WBC (Bld) 0.3 % 0.0 - 0.5 % [facility] Interpretation and review of laboratory results Abnormal [facility] LYMPHOCYTES ABSOLUTE AUTO 2.1 [facility] Lymphocytes/100 WBC (Bld) 21.2 % 20.5 - 60.0 % [facility] MCH (RBC) [Entitic mass] 25.3 pg Low 26.7 - 34.0 pg [facility] MCHC (RBC) [Mass/Vol] 31.5 g/dL 29.9 - 35.2 g/dL [facility] MCV (RBC) [Entitic vol] 80.4 fL Low 81.0 - 99.0 fL [facility] MONOCYTES ABSOLUTE AUTO 0.6 [facility] Monocytes/100 WBC (Bld) 6.2 % 1.7 - 12.0 % [facility] NEUTROPHILS ABSOLUTE AUTO 6.7 High [facility] Neutrophils/100 WBC (Bld) 69.3 % 43.0 - 75.0 % [facility] Platelet mean volume (Bld) [Entitic vol] 10 fL 9.5 - 13.5 fL [facility] EO # 0.3 [facility] PLT 304 [facility] RBC 4.54 [facility] WBC 9.7 [facility] ECG 12-LEADon 11-27-2024 [place] [address] Electrocardiograph Report Signed Patient: EDNA GIVENS MR#: [id number] : 1975 Acct:[id number] Age/Sex: 49 / F ADM Date: 11/27/24 Loc: [facility] Attending Dr: Wes Sorensen D.O. Ordering Physician: Wes Sorensen D.O. Date of Service: 11/27/24 Procedure(s): ECG 12 lead Accession Number(s): [id number] cc: [facility] Test Date: 2024-11-27 Pat Name: EDNA GIVENS Department: Room: - Gender: Female [employer]: : 1975 Requested By: WES SORENSEN Order Number: [id number] Reading MD: PITA LONGO M.D. Measurements Intervals [place] Rate: 74 P: 54 [place]: 150 QRS: 17 QRSD: 87 T: 30 QT: 371 QTc: 412 Interpretive Statements SINUS RHYTHM WITH SINUS ARRHYTHMIA Normal ECG Compared to ECG 06/22/2023 14:03:22 T-wave abnormality no longer present Electronically Signed On 11-27-2024 18:33:00 EDT by PITA LONGO M.D. Dictated By: PITA LONGO Signed By: 11/27/24 1833 DD/ 1505 TD/TT: Construction Secretary: [facility] Radiology, Radiologist, - 11/27/2024 [place] [address] Electrocardiograph Report Signed Patient: EDNA GIVENS MR#: [id number] : 1975 Acct:[id number] Age/Sex: 49 / F ADM Date: 11/27/24 Loc: PST Attending Dr: Wes Sorensen D.O. Ordering Physician: Wes Sorensen D.O. Date of Service: 11/27/24 Procedure(s): ECG 12 lead Accession Number(s): [id number] cc: [facility] Test Date: 2024-11-27 Pat Name: EDNA GIVENS Department: Room: - Gender: Female [employer]: : 1975 Requested By: WES SORENSEN Order Number: [id number] Reading MD: PITA LONGO M.D. Measurements Intervals [place] Rate: 74 P: 54 [place]: 150 QRS: 17 QRSD: 87 T: 30 QT: 371 QTc: 412 Interpretive Statements SINUS RHYTHM WITH SINUS ARRHYTHMIA Normal ECG Compared to ECG 06/22/2023 14:03:22 T-wave abnormality no longer present Electronically Signed On 11-27-2024 18:33:00 EDT by PITA LONGO M.D. Dictated By: PITA LONGO Signed By: 11/27/24 1833 DD/ 1505 TD/TT: Construction Secretary: [facility] Radiology Study observation (narrative) [facility] ECG 12-LEADOrdered By: Radio logist Radiology on 11-27-2024 [facility] Work Phone: Pathology study report docum entOrdered By: Fidel Rincon on 11-17-2024 Pathology study [facility] Other HCG ( test) Ql (U)o n 11-12-2024 Interpretation and review of laboratory results Normal [facility] Healthcare Preg Test, Ur Negative Negative [facility] care [facility] Chaitanya 11-12-2024 L Specimen: [id number] Received: 11/14/24 Status: RICO Alarcon Num: [id number] Spec Type: Surgical Subm Dr: Wes Sorensen Tissues: A Endometrium - Biopsy (ENDOMETRIAL BX) Procedures: HE/2, Gross/Micro L4 Age/ Patient Sex Location Account Attending Physician Edna Givens 49/F LABELL [id number] Wes Sorensen SPEC NUM: [id number] RECD: 11/14/24 STATUS: MICHAELJackelyn ALARCON NUM: [id number] SANDIP: 11/12/24- SUBM DR: Wes Sorensen ENTERED: 11/14/[address]: Duke Perez SPEC TYPE: Surgical DEPT: NARINDER MCKINNEY ORDERED: [...] submitted in a single cassette. (1, ns, [id number]) Microscopic Description Microscopic examination is performed. CPT Codes 54808 Specimen: [id number] Received: 11/14/24 Status: RICO Alarcon Num: [id number] Spec Type: Surgical Subm Dr: Wes Sorensen Tissues: A Endometrium - Biopsy (ENDOMETRIAL BX) Procedures: HE/2, Gross/Micro L4 Patient: Edna Givens [id number] (Continued) Signed (signatur e on file) Fidel Rincon MD 11/17/24 1131 Normal [facility] CBC AUTO DIFFon 01-12-2023 BASO # 0.0 103/ul Normal 0.0-0.1 [facility] Comment on above: Performed By: #### C BC #### [facility] [address] [place] [address] Dr. Teja Macias Basophils/100 WBC (Bld) 0.4 % Normal 0.2-2.0 [facility] Comment on above: Performed By: #### C BC #### [facility] [address] [place] [address] Dr. Teja Macias EO # 0.5 103/ul Normal 0.0-0.7 [facility] Comment on above: Performed By: #### C BC #### [facility] [address] [place] [address] Dr. Teja Macias Eosinophils/100 WBC (Bld) 5.6 % Normal 0.9-7.0 [facility] Comment on above: Performed By: #### C BC #### [facility] [address] [place] [address] Dr. Teja Macias Erythrocyte distribution width (RBC) [Ratio] 14.0 % Normal 11.0-15.0 [facility] Comment on above: Performed By: #### C BC #### [facility] [address] [place] [address] Dr. Teja Macias Hematocrit (Bld) [Volume fraction] 41.2 % Normal 36.0-48.0 [facility] Comment on above: Performed By: #### C BC #### [facility] [address] [place] [address] Dr. Teja Macias Hemoglobin (Bld) [Mass/Vol] 13.1 g/dL Normal 12.0-16.0 [facility] Comment on above: Performed By: #### C BC #### [facility] [address] [place] [address] Dr. Teja Macias IG # 0.04 10e3/ul Critically high 0.00-0.03 [facility] Comment on above: Performed By: #### C BC #### [facility] [address] [place] [address] Dr. Teja Macias IG % 0.5 % Normal 0.0-0.5 [facility] Comment on above: Performed By: #### C BC #### [facility] [address] [place] [address] Dr. Teja Macias LYMPH # 2.5 103/ul Normal 1.2-3.8 [facility] Comment on above: Performed By: #### C BC #### [facility] [address] [place] [address] Dr. Teja Macias Lymphocytes/100 WBC (Bld) 28.8 % Normal 20.5-60.0 [facility] Comment on above: Performed By: #### C BC #### [facility] [address] [place] [address] Dr. Teja Macias MANUAL DIFF REQ NO Normal [facility] Comment on above: Performed By: #### C BC #### [facility] [address] [place] [address] Dr. Teja Macias MCH (RBC) [Entitic mass] 28.1 pg Normal 26.7-34.0 [facility] Comment on above: Performed By: #### C BC #### [facility] [address] [place] [address] Dr. Teja Macias MCHC (RBC) [Mass/Vol] 31.8 g/dL Normal 29.9-35.2 [facility] Comment on above: Performed By: #### C BC #### [facility] [address] [place] [address] Dr. Teja Macias MCV (RBC) [Entitic vol] 88.4 fL Normal 81.0-99.0 [facility] Comment on above: Performed By: #### C BC #### [facility] [address] [place] [address] Dr. Teja Macias MONO # 0.5 103/ul Normal 0.3-0.8 [facility] Comment on above: Performed By: #### C BC #### [facility] [address] [place] [address] Dr. Teja Macias Monocytes/100 WBC (Bld) 6.1 % Normal 1.7-12.0 [facility] Comment on above: Performed By: #### C BC #### [facility] [address] [place] [address] Dr. Teja Macias NEUT # 5.0 103/ul Normal 1.4-6.5 [facility] Comment on above: Performed By: #### C BC #### [facility] [address] [place] [address] Dr. Teja Macias Neutrophils/100 WBC (Bld) 58.6 % Normal 43.0-75.0 [facility] Comment on above: Performed By: #### C BC #### [facility] [address] [place] [address] Dr. Teja Macias Platelet mean volume (Bld) [Entitic vol] 10.2 fL Normal 9.5-13.5 [facility] Comment on above: Performed By: #### C BC #### [facility] [address] [place] [address] Dr. Teja Macias PLT 299 103/ul Normal 150-450 [facility] Comment on above: Performed By: #### C BC #### [facility] [address] [place] [address] Dr. Teja Macias RBC 4.66 106/ul Normal 4.20-5.40 [facility] Comment on above: Performed By: #### C BC #### [facility] [address] [place] [address] Dr. Teja Macias WBC 8.5 103/ul Normal 4.0-11.0 [facility] Comment on above: Performed By: #### C BC #### [facility] [address] [place], [place] [address] Dr. Teja Macias LIPID PROFILEon 01-12-2023 CHOL-HDL RATIO NORM SEE BELOW Normal [facility] Comment on above: Result Comment: 3.3 - 4.4 LOW RISK 4.4 - 7.1 AVERAGE RISK 7.1 - 11.0 MODERATE RISK >11.0 HIGH RISK Performed By: #### T 4, CMP, TSH, LIPID ####[facility] [address] [place], [place] [address]Ou. Teja Macias Cholesterol [Mass/Vol] 171 mg/dL Normal <=200 [facility] Comment on above: Performed By: #### T 4, CMP, TSH, LIPID ####[facility] [address] [place], [place] [address]Xr. Teja Macias Cholesterol in HDL [Mass/Vol] 42 mg/dL Normal 40-60 [facility] Comment on above: Performed By: #### T 4, CMP, TSH, LIPID ####[facility] [address] [place] [id number]. Teja Macias Cholesterol in LDL [Mass/Vol] 106.8 mg/dL Normal [facility] Comment on above: Performed By: #### T 4, CMP, TSH, LIPID ####[facility] [address] [place], [place] [address]Fv. Teja Macias Cholesterol.total/Cho lesterol in HDL [Mass ratio] 4.1 {ratio} Normal [facility] Comment on above: Performed By: #### T 4, CMP, TSH, LIPID ####[facility] [address] [place], [place] [address]Gb. Teja Macias HDL NORMAL > or = 60 mg/dl - LOW CARDIOVASCULAR RISK <40 mg/dl - HIGH CARDIOVASCULAR RISK Normal [facility] Comment on above: Performed By: #### T 4, CMP, TSH, LIPID ####[facility] [address] [place] [id number]. Teja Macias LDL CALC NORMAL SEE BELOW Normal [facility] Comment on above: Result Comment: <100 mg/dl OPTIMAL 100 - 129 mg/dl NEAR OR ABOVE OPTIMAL 130 - 159 mg/dl BORDERLINE HIGH 160 - 189 mg/dl HIGH >190 mg/dl VERY HIGH Performed By: #### T 4, CMP, TSH, LIPID ####[facility] [address] [place] [id number]. Teja Macias Triglyceride [Mass/Vol] 111 mg/dL Normal <=150 [facility] Comment on above: Performed By: #### T 4, CMP, TSH, LIPID ####[facility] [address] [place] [address]Dr. Teja Macias VLDL CALC 22.2 mg/dL Normal [facility] Comment on above: Performed By: #### T 4, CMP, TSH, LIPID ####[facility] [address] [place] [address]Dr. Teja Macias PROF 14(COMP METB)on 023 Albumin [Mass/Vol] 3.3 g/dL Critically low 3.4-5.0 [facility] [place] Comment on above: Performed By: #### T 4, CMP, TSH, LIPID ####[facility] [address] [place] [address]Dr. Teja Macias Albumin/Globulin [Mass ratio] 0.6 {ratio} Normal [facility] Comment on above: Performed By: #### T 4, CMP, TSH, LIPID ####[facility] [address] [place] [address]Dr. Teja Macias ALP [Catalytic activity/Vol] 79 U/L Normal 46-116 [facility] Comment on above: Performed By: #### T 4, CMP, TSH, LIPID ####[facility] [address] [place] [id number]. Teja Macias ALT [Catalytic activity/Vol] 29 U/L Normal 14-59 [facility] Comment on above: Performed By: #### T 4, CMP, TSH, LIPID ####[facility] [address] [place] [id number]. Teja Macias Anion gap [Moles/Vol] 10.2 mmol/L Normal e [facility] Comment on above: Performed By: #### T 4, CMP, TSH, LIPID ####[facility] [address] [place] [address]Dr. Teja Macias AST [Catalytic activity/Vol] 23 U/L Normal 15-37 [facility] Comment on above: Performed By: #### T 4, CMP, TSH, LIPID ####[facility] [address] [place] [address]Dr. Teja Macias Bilirubin [Mass/Vol] 0.4 mg/dL Normal 0.2-1.0 [facility] Comment on above: Performed By: #### T 4, CMP, TSH, LIPID ####[facility] [address] [place], [place] [address]Dr. Teja Macias Calcium [Mass/Vol] 8.9 mg/dL Normal 8.5-10.1 [facility] Comment on above: Performed By: #### T 4, CMP, TSH, LIPID ####[facility] [address] [place], [place] [address]Dr. Teja Macias Chloride [Moles/Vol] 104 mmol/L Normal 98-107 [facility] Comment on above: Performed By: #### T 4, CMP, TSH, LIPID ####[facility] [address] [place], [place] [address]Dr. Teja Macias CO2 [Moles/Vol] 28.0 mmol/L Normal 21.0-32.0 [facility] Comment on above: Performed By: #### T 4, CMP, TSH, LIPID ####[facility] [address] [place], [place] [address]Dr. Teja Macias Creatinine [Mass/Vol] 0.67 mg/dL Normal 0.55-1.02 [facility] Comment on above: Performed By: #### T 4, CMP, TSH, LIPID ####[facility] [address] [place] [address]Dr. Teja Macias EGFR-AF EQUATORIAL GUINEAN >60 Normal >=60 [facility] Comment on above: Performed By: #### T 4, CMP, TSH, LIPID ####[facility] [address]ol[address] [place] [address]Dr. Teja Macias EGFR-NON AF EQUATORIAL GUINEAN >60 Normal >=60 [facility] Comment on above: Performed By: #### T 4, CMP, TSH, LIPID ####[facility] [address] [place] [address]Dr. eTja Macias Globulin (S) [Mass/Vol] 5.2 g/dL Normal [facility] Comment on above: Performed By: #### T 4, CMP, TSH, LIPID ####[facility] [address] [place] [address]Dr. Teja Macias Glucose [Mass/Vol] 97 mg/dL Normal 74-106 [facility] Comment on above: Performed By: #### T 4, CMP, TSH, LIPID ####[facility] [address] [place] [address]Dr. Teja Macias Potassium [Moles/Vol] 4.2 mmol/L Normal 3.5-5.1 [facility] Comment on above: Performed By: #### T 4, CMP, TSH, LIPID ####[facility] [address] [place] [address]Dr. Teja Macias Protein [Mass/Vol] 8.5 g/dL Critically high 6.4-8.2 [facility] Comment on above: Performed By: #### T 4, CMP, TSH, LIPID ####[facility] [address] [place] [address]Dr. Teja Macias Sodium [Moles/Vol] 138 mmol/L Normal 136-145 [facility] Comment on above: Performed By: #### T 4, CMP, TSH, LIPID ####[facility] [address] [place] [address]Dr. Teja Macias Urea nitrogen [Mass/Vol] 12.0 mg/dL Normal 7.0-18.0 [facility] Comment on above: Performed By: #### T 4, CMP, TSH, LIPID ####[facility] [address] [place] [address]Dr. Teja Macias Urea nitrogen/Creatinine [Mass ratio] 17.9 mg/mg Normal [facility] Comment on above: Performed By: #### T 4, CMP, TSH, LIPID ####[facility] [address] [place], [place] [address]Yy. Teja Macias T4on 01-12-2023 T4 [Mass/Vol] 5.00 ug/dL Normal 4.80-13.90 [facility] Comment on above: Performed By: #### T 4, CMP, TSH, LIPID ####[facility] [address] [place], [place] [address]Ix. Teja Macias TSHon 01-12-2023 TSH 2.338 uIU/mL Normal 0.358-3.740 [facility] Comment on above: Performed By: #### T 4, CMP, TSH, LIPID ####[facility] [address] [place], [place] [address]Zj. Teja Macias US KIM DOP LEG RTon [...] ANU RICHMOND Date: 2022-10-31 08:51 Normal [facility] MRI KNEE RT WO CONon 023 MRI [...] ANU PABON Date: 2022-10-02 21:54 Normal [facility] XR ANKLE LT MIN 3 Von 2022 [...] swelling is present. Electronically authenticated by: LUIS NATONIO BAEZA Date: 2022-10-02 17:50 Normal [facility] XR KNEE RT 4V or >on 023 XR KNEE RT 4V or > EXAM: XR KNEE RT 4V or > HISTORY: Pain in the knee since [place]. COMPARISON: 10/24/2019 TECHNIQUE: 4 views of the [...] ANTONIO BAEZA Date: 2022-10-02 17:52 Normal [facility] CBC AUTO DIFFon 01-23-2022 BASO # 0.0 103/ul Normal 0.0-0.1 [facility] Comment on above: Performed By: #### C BC ####[facility] [address] [place], [place] [address]Dr. Teja Macias Basophils/100 WBC (Bld) 0.3 % Normal 0.2-2.0 [facility] Comment on above: Performed By: #### C BC ####[facility] [address] [place], [place] [address]Dr. Teja Macias EO # 0.5 103/ul Normal 0.0-0.7 [facility] Comment on above: Performed By: #### C BC ####[facility] [address] [place], [place] [address]Dr. Teja Macias Eosinophils/100 WBC (Bld) 5.1 % Normal 0.9-7.0 [facility] Comment on above: Performed By: #### C BC ####[facility] [address] [place], [place] [address]Dr. Teja Macias Erythrocyte distribution width (RBC) [Ratio] 14.6 % Normal 11.0-15.0 [facility] Comment on above: Performed By: #### C BC ####[facility] [address] [place], [place] [address]Dr. Teja Macias Hematocrit (Bld) [Volume fraction] 38.7 % Normal 36.0-48.0 [facility] Comment on above: Performed By: #### C BC ####[facility] [address] [place] [id number]. Teja Macias Hemoglobin (Bld) [Mass/Vol] 12.2 g/dL Normal 12.0-16.0 [facility] Comment on above: Performed By: #### C BC ####[facility] [address] [place] [address]Dr. Teja Macias IG # 0.02 10e3/ul Normal 0.00-0.03 [facility] Comment on above: Performed By: #### C BC ####[facility] [address] [place] [address]Dr. Teja Macias IG % 0.2 % Normal 0.0-0.5 [facility] Comment on above: Performed By: #### C BC ####[facility] [address] [place], [place] [address]Dr. Teja Macias LYMPH # 2.1 103/ul Normal 1.2-3.8 [facility] Comment on above: Performed By: #### C BC ####[facility] [address] [place] [address]Dr. Teja Macias Lymphocytes/100 WBC (Bld) 22.4 % Normal 20.5-60.0 [facility] Comment on above: Performed By: #### C BC ####[facility] [address] [place] [address]Dr. Teja Macias MANUAL DIFF REQ NO Normal [facility] Comment on above: Performed By: #### C BC ####[facility] [address] [place], [place] [address]Dr. Teja Macias MCH (RBC) [Entitic mass] 27.5 pg Normal 26.7-34.0 [facility] Comment on above: Performed By: #### C BC ####[facility] [address] [place] [address]Dr. Teja Macias MCHC (RBC) [Mass/Vol] 31.5 g/dL Normal 29.9-35.2 [facility] Comment on above: Performed By: #### C BC ####[facility] [address] [place] [address]Dr. Teja Macias MCV (RBC) [Entitic vol] 87.2 fL Normal 81.0-99.0 [facility] Comment on above: Performed By: #### C BC ####[facility] [address] [place] [address]Dr. Teja Macias MONO # 0.4 103/ul Normal 0.3-0.8 [facility] Comment on above: Performed By: #### C BC ####[facility] [address] [place] [address]Dr. Teja Macias Monocytes/100 WBC (Bld) 4.6 % Normal 1.7-12.0 [facility] Comment on above: Performed By: #### C BC ####[facility] [address] [place] [address]Dr. Teja Macias NEUT # 6.3 103/ul Normal 1.4-6.5 [facility] Comment on above: Performed By: #### C BC ####[facility] [address] [place] [id number]. Teja Macias Neutrophils/100 WBC (Bld) 67.4 % Normal 43.0-75.0 [facility] Comment on above: Performed By: #### C BC ####[facility] [id number] [id number]. Teja Macias Platelet mean volume (Bld) [Entitic vol] 10.3 fL Normal 9.5-13.5 [facility] Comment on above: Performed By: #### C BC ####[facility] [id number] [id number]. Teja Macias PLT 278 103/ul Normal 150-450 [facility] Comment on above: Performed By: #### C BC ####[facility] [id number] [id number]. Teja Macias RBC 4.44 106/ul Normal 4.20-5.40 [facility] Comment on above: Performed By: #### C BC ####[facility] [id number] [id number]. Teja Macias WBC 9.3 103/ul Normal 4.0-11.0 [facility] Comment on above: Performed By: #### C BC ####[facility] [id number] [id number]. Teja Macias FREE T3on 01-23-2022 FREE T3 1.74 pg/mlL Critically low 2.18-3.98 [facility] Comment on above: Performed By: #### T 4, TSH, CMP, LIPID, FT3 #### [facility] [address] [address] [address] Teja Macias GLYCOHEMOGLOBIN A1Con 2021 ADA RECOMMENDATION SEE BELOW Normal [facility] Comment on above: Result Comment: ADA RECOMMENDED LIMIT 4.0 - 6.0 ADA THERAPEUTIC TARGET < 7.0 ACTION SUGGESTED > 7.0 Performed By: #### A 1C ####[facility] [id number] [place] [address] [address]DrChristiano Macias Glucose [Mass/Vol] 114 mg/dL Normal [facility] Comment on above: Performed By: #### A 1C ####[facility] [id number] [address]DrChristiano Macias HbA1c (Bld) [Mass fraction] 5.6 % Normal 4.5-6.2 [facility] Comment on above: Performed By: #### A 1C ####[facility] [id number] [address]DrChristiano Macias LIPID PROFILEon 01-23-2022 CHOL-HDL RATIO NORM SEE BELOW Normal [facility] Comment on above: Result Comment: 3.3 - 4.4 LOW RISK 4.4 - 7.1 AVERAGE RISK 7.1 - 11.0 MODERATE RISK >11.0 HIGH RISK Performed By: #### T 4, TSH, CMP, LIPID, FT3 #### [facility] [address] [address] [address] Teja Macias Cholesterol [Mass/Vol] 155 mg/dL Normal <=200 [facility] Comment on above: Performed By: #### T 4, TSH, CMP, LIPID, FT3 #### [facility] [address] [address] [address] Teja Macias Cholesterol in HDL [Mass/Vol] 36 mg/dL Critically low 40-60 [facility] Comment on above: Performed By: #### T 4, TSH, CMP, LIPID, FT3 #### [facility] [address] [address] [address] Teja Macias Cholesterol in LDL [Mass/Vol] 93.6 mg/dL Normal [facility] Comment on above: Performed By: #### T 4, TSH, CMP, LIPID, FT3 #### [facility] [address] [address] [address] Teja Macias Cholesterol.total/Cho lesterol in HDL [Mass ratio] 4.3 {ratio} Normal [facility] Comment on above: Performed By: #### T 4, TSH, CMP, LIPID, FT3 #### [facility] [address] [address] [address] Teja Macias HDL NORMAL > or = 60 mg/dl - LOW CARDIOVASCULAR RISK <40 mg/dl - HIGH CARDIOVASCULAR RISK Normal [facility] Comment on above: Performed By: #### T 4, TSH, CMP, LIPID, FT3 #### [facility] [address] [address] [address] Teja Macias LDL CALC NORMAL SEE BELOW Normal [facility] Comment on above: Result Comment: <100 mg/dl OPTIMAL 100 - 129 mg/dl NEAR OR ABOVE OPTIMAL 130 - 159 mg/dl BORDERLINE HIGH 160 - 189 mg/dl HIGH >190 mg/dl VERY HIGH Performed By: #### T 4, TSH, CMP, LIPID, FT3 #### [facility] [address] [address] [address] Teja Macias Triglyceride [Mass/Vol] 127 mg/dL Normal <=150 [facility] Comment on above: Performed By: #### T 4, TSH, CMP, LIPID, FT3 #### [facility] [address] [address] [address] Teja Macias VLDL CALC 25.4 mg/dL Normal [facility] Comment on above: Performed By: #### T 4, TSH, CMP, LIPID, FT3 #### [facility] [address] [address] [address] Teja Macias PROF 14(COMP METB)on 022 Albumin [Mass/Vol] 3.0 g/dL Critically low 3.4-5.0 [facility] [place] Comment on above: Performed By: #### T 4, TSH, CMP, LIPID, FT3 #### [facility] [address] [place] [address] Dr. Teja Macias Albumin/Globulin [Mass ratio] 0.7 {ratio} Normal [facility] Comment on above: Performed By: #### T 4, TSH, CMP, LIPID, FT3 #### [facility] [address] [place] [address] Dr. Teja Macias ALP [Catalytic activity/Vol] 71 U/L Normal 46-116 [facility] Comment on above: Performed By: #### T 4, TSH, CMP, LIPID, FT3 #### [facility] [address] [place] [address] Dr. Teja Macias ALT [Catalytic activity/Vol] 19 U/L Normal 14-59 [facility] Comment on above: Performed By: #### T 4, TSH, CMP, LIPID, FT3 #### [facility] [address] [place] [address] Dr. Teja Macias Anion gap [Moles/Vol] 15.5 mmol/L Normal [facility] [place] Comment on above: Performed By: #### T 4, TSH, CMP, LIPID, FT3 #### [facility] [address] [place] [address] Dr. Teja Macias AST [Catalytic activity/Vol] 16 U/L Normal 15-37 [facility] Comment on above: Performed By: #### T 4, TSH, CMP, LIPID, FT3 #### [facility] [address] [place] [address] Dr. Teja Macias Bilirubin [Mass/Vol] 0.4 mg/dL Normal 0.2-1.0 [facility] Comment on above: Performed By: #### T 4, TSH, CMP, LIPID, FT3 #### [facility] [address] [address] [address] Teja Macias Calcium [Mass/Vol] 8.7 mg/dL Normal 8.5-10.1 [facility] Comment on above: Performed By: #### T 4, TSH, CMP, LIPID, FT3 #### [facility] [address] [place] [address] Dr. Teja Macias Chloride [Moles/Vol] 103 mmol/L Normal 98-107 [facility] Comment on above: Performed By: #### T 4, TSH, CMP, LIPID, FT3 #### [facility] [address] [place] [address] Dr. Teja Macias CO2 [Moles/Vol] 23.3 mmol/L Normal 21.0-32.0 [facility] Comment on above: Performed By: #### T 4, TSH, CMP, LIPID, FT3 #### [facility] [address] [place] [address] Dr. Teja Macias Creatinine [Mass/Vol] 0.65 mg/dL Normal 0.55-1.02 [facility] Comment on above: Performed By: #### T 4, TSH, CMP, LIPID, FT3 #### [facility] [address] [place] [address] Dr. Teja Macias EGFR-AF EQUATORIAL GUINEAN >60 Normal >=60 [facility] Comment on above: Performed By: #### T 4, TSH, CMP, LIPID, FT3 #### [facility] [address] [place] [address] Dr. Teja Macias EGFR-NON AF EQUATORIAL GUINEAN >60 Normal >=60 [facility] Comment on above: Performed By: #### T 4, TSH, CMP, LIPID, FT3 #### [facility] [address] [place] [address] Dr. Teja Macias Globulin (S) [Mass/Vol] 4.6 g/dL Normal [facility] Comment on above: Performed By: #### T 4, TSH, CMP, LIPID, FT3 #### [facility] [address] [place] [address] Dr. Teja Macias Glucose [Mass/Vol] 110 mg/dL Critically high 74-106 [facility] Comment on above: Performed By: #### T 4, TSH, CMP, LIPID, FT3 #### [facility] [address] [place] [address] Dr. Teja Macias Potassium [Moles/Vol] 3.8 mmol/L Normal 3.5-5.1 [facility] Comment on above: Performed By: #### T 4, TSH, CMP, LIPID, FT3 #### [facility] [address] [place] [address] Dr. Teja Macias Protein [Mass/Vol] 7.6 g/dL Normal 6.4-8.2 [facility] Comment on above: Performed By: #### T 4, TSH, CMP, LIPID, FT3 #### [facility] [address] [place] [address] Dr. Teja Macias Sodium [Moles/Vol] 138 mmol/L Normal 136-145 [facility] Comment on above: Performed By: #### T 4, TSH, CMP, LIPID, FT3 #### [facility] [address] [place] [address] Dr. Teja Macias Urea nitrogen [Mass/Vol] 15.0 mg/dL Normal 7.0-18.0 [facility] Comment on above: Performed By: #### T 4, TSH, CMP, LIPID, FT3 #### [facility] [address] [place] [address] Dr. Teja Macias Urea nitrogen/Creatinine [Mass ratio] 23.1 mg/mg Normal [facility] Comment on above: Performed By: #### T 4, TSH, CMP, LIPID, FT3 #### [facility] [address] [place] [address] Dr. Teja Macias T4on 01-23-2022 T4 [Mass/Vol] 6.20 ug/dL Normal 4.80-13.90 [facility] Comment on above: Performed By: #### T 4, TSH, CMP, LIPID, FT3 ####[facility] [id number] [place], [place] [address]RvDr. Teja Macias TSHon 01-23-2022 TSH 3.271 uIU/mL Normal 0.358-3.740 [facility] Comment on above: Performed By: #### T 4, TSH, CMP, LIPID, FT3 #### [facility] [address] [place], [place] [address] Dr. Teja Macias TSH RANGE SEE BELOW Normal [facility] Comment on above: Result Comment: <0.3 4 UIU/ml HYPERTHYROID 0.34-5.60 UIU/ml EUTHYROID >5.60 UIU/ml HYPOTHYROID Performed By: #### T 4, TSH, CMP, LIPID, FT3 #### [facility] [address] [place], [place] [address] Dr. Teja Macias VITAMIN D 25 OHon 01-23-2022 VIT D 25-OH 7.6 ng/mL Normal [facility] Comment on above: Performed By: #### V ITAD #### [facility] [address] [place], [place] [address] Dr. Teja Macias VIT D RANGES SEE BELOW Normal [facility] Comment on above: Result Comment: <20 ng/mL Vit D deficient 20 - <30 ng/mL Vit D insufficient 30 - 100 ng/mL Vit D sufficient >100 ng/mL Potential Toxicity Performed By: #### V ITAD #### [facility] [address] [place], [place] [address] Dr. Teja Macias Laboratory Studieson 019 Albumin mass conc (Body fld) 3.6 gm/dL 3.2-5.5 [facility] Albumin/Globulin mass ratio 0.9 {ratio} [facility] ALP enzyme act/vol 80 U/L 32-92 [facility] ALT No additional P-5'-P enzyme act/vol 34 U/L 10-60 [facility] AST enzyme act/vol 29 U/L 10-42 [facility] Basophils #/vol (Bld) 0.0 10*3/uL 0.0-0.2 [facility] Basophils/100 WBC (Bld) 0.5 % [facility] Bilirubin mass conc 0.5 mg/dL 0.3-1.2 [facility] Calcium mass conc 8.9 mg/dL 8.2-10.2 [facility] [place] [facility] Chloride molar conc 104 mmol/L 95-114 [facility] Cholesterol in HDL mass conc 34 mg/dL Low 35-85 [facility] Comment on above: HDL CHOL ATP-III CLA SSIFICATION Cardiovascular Risk HDL > or equal to 60 mg/dL LOW HDL < 40 mg/dL HIGH Cholesterol in LDL mass conc 105 mg/dL High 0-100 [facility] Comment on above: LDL ATP III CLASSIFI CATION LDL less than 100 mg/dL Optimal LDL 100-129 mg/dL Near or above optimal LDL 130-159 mg/dL Borderline high LDL 160-189 mg/dL High LDL greater than 189 mg/dL Very high Cholesterol in VLDL mass conc 27 mg/dL [facility] Cholesterol mass conc 166 mg/dL 140-200 [facility] Comment on above: Chol less than 200 m g/dl low risk Chol 201-239 mg/dl borderline risk Chol 240 mg/dl and greater high risk Cholesterol.total/Cho lesterol in HDL mass ratio 4.9 {ratio} [facility] CO2 molar conc 25.4 mmol/L 22.0-30.0 [facility] Creatinine mass conc 0.75 mg/dL 0.44-1.[address] [facility] Eosinophils #/vol (Bld) 0.5 10*3/uL High 0.0-0.45 [facility] Eosinophils/100 WBC (Bld) 5.0 % [facility] Erythrocyte distribution width Ratio (RBC) 14.7 % 11.9-15.3 [facility] GFR/1.73 sq M predicted among blacks MDRD vol rate/area (S/P/Bld) mL/min/{1.73_m2} [facility] Comment on above: GFR estimated refere nce range: According to KDOQI guidelines, <60 ml/min/1.73m2 is sufficient to diagnose a patient with chronic kidney disease. GFR/1.73 sq M predicted among non-blacks MDRD vol rate/area (S/P/Bld) mL/min/{1.73_m2} [facility] Globulin mass conc (S) 3.8 g/dL [facility] Glucose mass conc 104 mg/dL High 70-100 [facility] [place] [facility] Comment on above: ADA recommended refe rence range Random Glucose Reference Range is dependent on time and content of last meal. Glucose of more than 200 mg/dL in a nonstressed, ambulatory subject supports the diagnosis of Diabetes Mellitus. Hematocrit Volume Fraction (Bld) 39.2 % 34.0-46.4 [facility] Hemoglobin mass conc (Bld) 13.2 g/dL 11.8-15.4 [facility] Lymphocytes #/vol (Bld) 2.6 10*3/uL 1.00-4.8 [facility] Lymphocytes/100 WBC (Bld) 28.2 % [facility] MCH Entitic mass (RBC) 28.5 pg 24.7-34.3 [facility] MCHC mass conc (RBC) 33.6 g/dL 32.0-35.[address] [facility] MCV Entitic volume (RBC) 84.8 fL 80-100 [facility] Monocytes #/vol (Bld) 0.5 10*3/uL 0.0-0.8 [facility] Monocytes/100 WBC (Bld) 5.7 % [facility] Neutrophils #/vol (Bld) 5.5 10*3/uL 1.8-7.7 [facility] Neutrophils/100 WBC (Bld) 60.6 % [facility] Nucleated RBC/100 WBC Ratio (Bld) 0.1 % 0-0.5 [facility] Creatinine Clearance (Chem N/A [facility] Platelet mean volume Entitic volume (Bld) 8.8 fL 6.3-10.7 [facility] Platelets #/vol (Bld) 296 10*3/uL 150-450 [facility] Potassium molar conc 4.1 mmol/L 3.5-5.[address] [facility] Protein mass conc 7.4 g/dL 6.1-7.9 [facility] [place] [facility] RBC #/vol (Bld) 4.62 10*6/uL 3.60-5.00 [facility] [place] [facility] Sodium molar conc 137 mmol/L 136-146 [facility] [place] [facility] T4 mass conc 7.54 ug/dL 5.39-11.82 [facility] Triglyceride mass conc 137 mg/dL 35-149 [facility] Comment on above: TRIG ATP III CLASSIF ICATION TRIG less than 150 mg/dL Normal TRIG 150-199 mg/dL Borderline high TRIG 200-500 mg/dL High TRIG greater than 500 mg/dL Very high Standard traceable to the Center for Disease Conrtrol and Prevention (CDC) test method. Urea nitrogen mass conc 10 mg/dL 06-02 [facility] WBC #/vol (Bld) 9.1 10*3/uL 3.8-11.6 [facility] Vital Signs Date Time Vital Sign Value Performing Clinician Facility 04-01-2025 15:31-0400 Body mass index (BMI) [Ratio] 52.83 kg/m2 Wes Edu DO Work Phone: [facility] 04-01-2025 15:31-0400 Body weight 139.62 kg Wes Edu DO Work Phone: [facility] 04-01-2025 15:31-0400 Diastolic blood pressure 70 mm[Hg] Wes Edu DO Work Phone: [facility] 04-01-2025 15:31-0400 Systolic blood pressure 110 mm[Hg] Wes Edu DO Work Phone: [facility] 12-31-2024 15:47-0400 Body mass index (BMI) [Ratio] 52.72 kg/m2 Wes Edu DO Work Phone: [facility] 12-31-2024 15:47-0400 Body weight 139.31 kg Wes Edu DO Work Phone: [facility] 12-31-2024 15:47-0400 Diastolic blood pressure 72 mm[Hg] Wes Edu DO Work Phone: [facility] 04-23-2025 15:47-0400 Systolic blood pressure 116 mm[Hg] Wes Edu DO Work Phone: [facility] 11-12-2024 15:09-0500 Body mass index (BMI) [Ratio] 53.35 kg/m2 Wes Edu DO Work Phone: [facility] 11-12-2024 15:09-0500 Body weight 140.98 kg Wes Edu DO Work Phone: [facility] 11-12-2024 15:09-0500 Diastolic blood pressure 70 mm[Hg] Wes Edu DO Work Phone: [facility] 11-12-2024 15:09-0500 Systolic blood pressure 142 mm[Hg] Wes Edu DO Work Phone: [facility] 10-22-2024 15:22-0500 Body mass index (BMI) [Ratio] 53.18 kg/m2 Wes Edu DO Work Phone: [facility] 10-22-2024 15:22-0500 Body weight 140.52 kg Wes Edu DO Work Phone: [facility] NEGATED: Highlighted row BMI (Body Mass Index) STAFF [facility] NEGATED: Highlighted row Body Temperature STAFF [facility] NEGATED: Highlighted row BP Diastolic STAFF [facility] NEGATED: Highlighted row BP Systolic STAFF [facility] NEGATED: Highlighted row Height STAFF [facility] NEGATED: Highlighted row Pulse (Heart Rate) STAFF [facility] NEGATED: Highlighted row Pulse Oximetry STAFF [facility] NEGATED: Highlighted row Respiratory Rate STAFF [facility] NEGATED: Highlighted row Weight STAFF [facility] Encounters Encounter Date Encounter Type Care Provider Facility Start: 04-01-2025 End: 04-01-2025 Patient encounter procedure Wes Edu DO Work Phone: [facility] Work Phone: Start: 04-01-2025 End: 04-01-2025 Periodic preventive med est patient 40-64yrs Wes Edu DO Work Phone: [facility] Comment on above: Well woman exam with routine gynecological exam; Breast cancer screening by mammogram Start: 04-01-2025 End: 04-01-2025 Bamboo flowsheet Wes Edu DO Work Phone: [facility] Start: 04-01-2025 End: 04-01-2025 Bamboo flowsheet Wes Edu DO Work Phone: [facility] Start: 12-31-2024 End: 12-31-2024 ambulatory [facility]U Not Available Start: 12-31-2024 End: 12-31-2024 Postop follow up visit related to original px Wes Edu DO Work Phone: [facility] Comment on above: Postop check; S/P endometrial ablation Start: 12-31-2024 End: 12-31-2024 Bamboo flowsheet Wes Edu DO Work Phone: [facility] Start: 12-31-2024 End: 12-31-2024 Bamboo flowsheet Wes Edu DO Work Phone: [facility] Start: 12-12-2024 End: 12-12-2024 Clinisync Result Encounter Wes Edu DO Work Phone: [facility] Unsolicited Start: 12-12-2024 End: 12-12-2024 Clinisync Result Encounter Wes Edu DO Work Phone: [facility] Unsolic[facility] Start: 11-27-2024 End: 11-27-2024 Clinisync Result Encounter Wes Edu DO Work Phone: [facility] Unsolic[facility] Start: 11-27-2024 End: 11-27-2024 Clinisync Result Encounter Wes Edu DO Work Phone: [facility] Unsolicited Start: 11-12-2024 End: 11-12-2024 Postop follow up visit related to original px Wes Edu DO Work Phone: [facility] Comment on above: Pre-op examination; Abnormal uterine bleeding (AUB) Start: 11-12-2024 End: 11-12-2024 Preprocedural examination done Wes Edu DO Work Phone: [facility] Start: 11-12-2024 End: 11-12-2024 ambulatory Wes Edu Facility:[facility] Start: 11-12-2024 End: 11-12-2024 Departed Referred Wesghada Wheelero DO Work Phone: [facility] Start: 10-22-2024 End: 10-22-2024 Office outpatient visit 15 minutes Wes Edu DO Work Phone: [facility] Comment on above: Abnormal uterine ble eding (AUB); Menorrhagia with regular cycle Start: 10-22-2024 End: 10-22-2024 ambulatory WES WHEELERO Not Available Start: 10-22-2024 End: 10-22-2024 Bamboo flowsheet Wes Edu DO Work Phone: [facility] Start: 10-22-2024 End: 10-22-2024 Bamboo flowsheet Wes Edu DO Work Phone: [facility] Start: 01-12-2023 End: 01-13-[address] GRIMALDO LISTED REQUEST Facility:[facility] Start: 10-30-2022 End: 10-31-[address] MEHRAN COCHRAN . Facility:[facility] Start: 10-02-2022 End: 10-03-[address] MEHRAN COCHRAN . Facility:[facility] Start: 02-23-[address] MEHRAN COCHRAN . Facili ty:[facility] Start: 01-26-2022 Encounter for genera l adult medical examination without abnormal findings DR MEHRAN COCHRAN . [facility] Start: 01-23-2022 End: 01-24-[address] MEHRAN COCHRAN . Facility: Start: 01-23-2022 End: 01-24-2022 Encounter for general adult medical examination without abnormal findings DR MEHRAN COCHRAN . Facility:[facility] Start: 02-05-2019 End: 02-05-2019 Departed Referred STAFF [facility] Procedures Date Procedure Procedure Detail Performing Clinician Start: 12-12-2024 ALL CBC WITH AUTO DIFF Wes Edu DO Work Phone: Start: 11-27-2024 ECG 12-LEAD Wes Fazi o DO Work Phone: Start: 11-12-2024 Urine test visual color cmprsn meths Wes Edu DO Work Phone: Plan of Treatment Date Care Activity Detail Author Start: 11-12-2025 Chart abstracting 11/12/2025 A bstract [facility] [address] [place] [id number] Wes Sorensen, DO [address] [place], [place] [id number] [facility] Start: 04-01-2025 End: 04-01-2025 Patient encounter procedure 04/01/2025 3:20 PM EDT Office Visit [facility] [address] [place] [id number] Wes Sorensen DO [address], [place] [id number] [facility] Start: 04-01-2025 End: 06-02-2026 MG Breast - bilateral Screening Bilateral screening mammogram Imaging Routine Breast cancer screening by mammogram Expected: 04/01/2025 (Approximate), Expires: 06/02/2026 [facility] Work Phone: Comment on above: Expected: 04/01/2025 (Approximate), Expires: 06/02/2026 Start: 11-12-2024 End: 11-12-2024 Patient encounter procedure 11/12/2024 2:30 PM EST Procedure Visit [facility] [address] [place] [id number] Wse Sorensen, DO [address] [place] [address] [facility] Start: 10-22-2024 End: 10-22-2024 Patient encounter procedure 10/22/2024 2:50 PM EST Office Visit [facility] [address] [place] [id number] Wes Sorensen, DO [address] [place] [address] Arrived [facility] Comment on above: Arrived Start: 10-22-2024 End: 10-22-2025 aPTT in Blood by Coagulation assay APTT Lab Routine Menorrhagia with regular cycle Expected: 10/22/2024 (Approximate), Expires: 10/22/2025 [facility] Comment on above: Expected: 10/22/2024 (Approximate), Expires: 10/22/2025 Start: 10-22-2024 End: 10-22-2025 US Pelvis US Pelvis w/ TV Imaging Routine Abnormal uterine bleeding (AUB) Menorrhagia with regular cycle Expected: 10/22/2024, Expires: 10/22/2025 [facility] Comment on above: Expected: 10/22/2024 , Expires: 10/22/2025 CBC W Auto Different ial panel - Blood CBC and differential Lab Routine Menorrhagia with regular cycle Ordered: 10/22/2024 [facility] Work Phone: Comment on above: Ordered: 10/22/2024 hCG, quantitative, hCG, quantitative, Lab Routine Menorrhagia with regular cycle Ordered: 10/22/2024 [facility] Comment on above: Ordered: 10/22/2024 Hemoglobin A1c/Hemoglobin.total in Blood Hemoglobin A1c Lab Routine Menorrhagia with regular cycle Ordered: 10/22/2024 [facility] Comment on above: Ordered: 10/22/2024 Prothrombin time (PT ) in Blood by Coagulation assay Protime-INR Lab Routine Menorrhagia with regular cycle Ordered: 10/22/2024 [facility] Comment on above: Ordered: 10/22/2024 THIN PREP TIS PAP AN D HR HPV DNA THIN PREP TIS PAP AND HR HPV DNA Pathology and Cytology Routine Well woman exam with routine gynecological exam Ordered: 04/01/2025 [facility] Comment on above: Ordered: 04/01/2025 Thyrotropin [Units/volume] in Serum or Plasma TSH Lab Routine Menorrhagia with regular cycle Ordered: 10/22/2024 [facility] Comment on above: Ordered: 10/22/2024 Thyroxine (T4) free [Mass/volume] in Serum or Plasma T4, free Lab Routine Menorrhagia with regular cycle Ordered: 10/22/2024 [facility] Comment on above: Ordered: 10/22/2024 Tissue exam Tissue exam Path ology and Cytology Routine Pre-op examination Abnormal uterine bleeding (AUB) Ordered: 11/12/2024 [facility] Work Phone: Comment on above: Ordered: 11/12/2024 Payers Date Payer Category Payer [facility] BC[employer] [id number] 2024 Self-pay 2024 Managed Care HMO (unspecified) [employer] [id number] 2024 Private Health Insurance [id number] 1975 Unknown [id number] 2.593 1975 Unknown [id number]. 2.593 1977 Unknown [id number] [id number]. 2.593 1977 Unknown [id number] [id number]. 2.593 1977 Unknown [id number] 2.16.840.1.810862.3.579. 2.1259 1977 Unknown [id number] 2.16.840.1.840801.3.579. 2.1259 1977 Unknown [id number] 2.16.840.1.473608.3.579. 2.1259 1959 Self-pay [id number] 1959 Unknown [id number] 1959 Unknown [id number] Unknown [id number]. 2.593 Social History Date Type Detail Facility Start: 07-11-2023 Tobacco smoking status [facility] Ex-smoker [facility] History of tobacco use Current smoker [facility] History of tobacco use Cigarette Smoker [facility] Start: 07-11-2023 End: 04-01-2025 Alcoholic beverage intake Current drinker of alcohol (finding) [facility] Start: 07-11-2023 End: 02-12-2025 [facility] of [facility] Start: 07-11-2023 End: 10-22-2024 Alcohol Use Disorder Identification Test - Consumption [AUDIT-C] [facility] How often to you hav e a drink containing alcohol? 2-4 times a month [facility] Average Number of Drinks Not on file [facility] Start: 07-11-2023 Tobacco Comment Last smoked >10 years [facility] Start: 06-06-2023 Alcohol Comment caffeine: 1-2 cups per day [facility] Start: 1975 Sex assigned at Female [facility] Start: 04-30-2023 Gender identity Identifies as female gender (finding) [facility] Work Phone: Start: 11-13-2024 Sex Female (finding) [facility] History of Present illness Narrative 04-01-2025 DOV Cody - 04/01/2025 3:20 PM EDT Note Date & Type Note Facility 04-01-2025 History of Presen t illness Narrative Reason [...] nursing note reviewed. Exam conducted with a senior care provider present. Vitals: Estimated body mass index is 52.83 kg/m as calculated from the following: Height [...] Documented by DOV Cody on behalf of: Wes Sorensen DO documented in this encounter [facility] History of Present illness Narrative 12-31-2024 Mary Alice LimonMARISA - 12/31/2024 3:10 PM EDT Note Date & Type Note Facility 12-31-2024 History of Presen t illness Narrative Reason for Appointment: Patient ID: Edna Givens is a 49 y.o. female who presents for Post-op Visit Patient presents today for 2 Week Post Op Follow Up appointment. MEDICATIONS Current Outpatient Medications Medication Instructions ibuprofen [...] nursing note reviewed. Exam conducted with a senior care provider present. Vitals: Estimated body mass index is 52.72 kg/m as calculated from the following: Height as of 06/18/23: 5' 4 . Weight as of this encounter: 307 lb 1.9 oz. BP: 116/72 No LMP recorded. ASSESSMENT & PLAN ICD-10-CM 1. Postop check Z09 2. S/P endometrial ablation Z98.890 Pt presents for postop endometrial ablation. Pt doing well with complaints of bleeding after procedure. Pt advised to allow 3-6 months to see how ablation works. Pt to return for annual unless needed sooner. Documented by Mary Alice Limon LPN on behalf of: Wes Sorensen DO documented in this encounter [facility] History of Present illness Narrative 11-12-2024 [...] on 12/05/[address] Sorensen at [facility]. MEDICATIONS Current Outpatient Medications Medication Instructions ibuprofen [...] nursing note reviewed. Exam conducted with a senior care provider present. Vitals: Estimated body mass index is [...] reviewed, and patient is to proceed to [facility] OR. Follow Up: Patient is to follow [...] nursing note reviewed. Exam conducted with a senior care provider present. Vitals: Estimated body mass index is [...] Wes Sorensen DO documented in this encounter [facility] Evaluation note Note Date & Type Note Facility Evaluation note Diagnosis Abnormal uterine bleeding (AUB) Menorrhagia with regular cycle documented in this encounter [facility] Evaluation note Note Date & Type Note Facility Evaluation note Diagnosis Pre-op examination Abnormal uterine bleeding (AUB) documented in this encounter [facility] Evaluation note Note Date & Type Note Facility Evaluation note No assessment information availa [facility] Work Phone: Evaluation note Note Date & Type Note Facility Evaluation note Diagnosis Postop check Follow-up examination, following unspecified surgery S/P endometrial ablation Other postprocedural status documented in this encounter [facility] Evaluation note Note Date & Type Note Facility Evaluation note Diagnosis Well woman exam with routine gynecological exam Routine gynecological examination Breast cancer screening by mammogram documented in this encounter [facility] Chief Complaint and Reason for Visit [...] pital DATE CREATED AUTHOR AUTHOR'S ORGANIZ ATION 11/18/2024 [facility] DATE CREATED AUTHOR AUTHOR'S ORGANIZ ATION 01/01/2025 [facility] Care Teams (unrecognized sec tion and content) Vehicle Delivery Worker Relationship Specialty Start Date End Date eMhran Cochran MD [address] [place] [address] PCP - General Family Medicine 04/30/23 Vehicle Delivery Worker Relationship Specialty Start Date End Date Mehran Cochran MD [address] [place] [address] PCP - General Family Medicine 04/30/23 Vehicle Delivery Worker Relationship Specialty Start Date End Date Mehran Cochran MD [address] [place] [address] PCP - General Family Medicine 04/30/23 Team Status: Inactive Member Role Status Dates Wes Sorensen DO Attending Provider Active Start : November 12, 2024 End: November 12, 2024 Vehicle Delivery Worker Relationship Specialty Start Date End Date Mehran Cochran MD [address] [place] [address] PCP - General Family Medicine 04/30/23 Vehicle Delivery Worker Relationship Specialty Start Date End Date Mehran Cochran MD [address] [place] [address] PCP - General Family Medicine 04/30/23 Vehicle Delivery Worker Relationship Specialty Start Date End Date Mehran Cochran MD [address] [place] [address] PCP - General Family Medicine 04/30/23 Reason for Visit (unrecogniz ed section and content) Reason Comments Menstrual Problem Reason Comments Pre-op Visit Reason Comments Post-op Visit Reason Comments Well Women Visit Goals (unrecognized section and content) Goals [...] BE BASED ON THE PRIMARY CLINICAL RECORDS. [facility] [employer] [facility] provides no warranty or guarantee of the accuracy or completeness of information in this document.
[2025-04-06 09:08] LABS: Age Gdln ACOG Testing Note (.); IGP, Aptima HPV, rfx 16/18,45 Note (.)
== END 2025-04-01 19:46 | disposition home or self-care (01) ==
LOC: LAB 19:45
PROVIDERS: PCP Family Medicine; Visit Provider Obstetrics & Gynecology
DX: Z01.419 Encounter for gynecological examination (general) (routine) without abnormal findings (principal)
CPT/HCPCS: 87624; 88175